=== PATIENT | male | born 1955 | race Caucasian/White ===

== ENCOUNTER 2017-10-09 23:53 | Inpatient (IN) ==
[2017-10-09] MEDS ORDERED: Piperacillin/Tazobactam 3.375 GM in Water for inj. (sterile) 20 ML IVP ONE (23:58)
--- NOTE | 2017-10-09 23:59 | Emergency Department Note ---
Disposition Clinical Impression: Hyponatremia Pneumonia Qualifiers: Pneumonia type: due to unspecified organism Laterality: right Lung location: lower lobe of lung Qualified Code(s): J18.1 - Lobar pneumonia, unspecified organism Urinary tract infection Qualifiers: Urinary tract infection type: site unspecified Hematuria presence: without hematuria Qualified Code(s): N39.0 - Urinary tract infection, site not specified Disposition: Admitted As Inpatient Condition: Fair Time of Disposition: 01:27 General Adult HPI - General Chief complaint: ED Shortness of Breath/Dyspnea Stated complaint: GISELE, possible aspiration Time Seen by Provider: 10/09/17 23:55 Source: patient Mode of arrival: EMS Limitations: altered mental status Nursing Notes Reviewed: Yes Vital Signs Reviewed: Yes - History of Present Illness HPI Narrative: Patient is a 62-year-old male with a past medical history of aspiration which is currently being titrated to thick liquids presenting tonight with respiratory status distress by squad. According to the squad the patient was tachycardic in the 110 and he was satting [facility] the [facility] said of the patient was satting in the 70% prior to their arrival. Stated the patient was initiated on thickened fluids today and he may have aspirated. On arrival the patient's does appear to be in moderate respiratory distress we requested respiratory place the patient on BiPAP. - Related Data Home Medications Medication Instructions Recorded Confirmed Aspirin [Aspirin] 05/14/15 05/14/15 Allergies Allergy/AdvReac Type Severity Reaction Status Date / Time methocarbamol [From Robaxin] Allergy Rash Verified 05/14/15 20:18 Limitations: ROS unobtainable due to patients medical condition Past Medical History - Past Medical History Attestation: Yes The following information was validated with the patient. Physical Exam - General Limitations: altered mental status General appearance: alert, in distress - Head Head exam: atraumatic, normocephalic, normal inspection - Eye Eye exam: Present: normal appearance, PERRL, EOMI - ENT ENT exam: normal exam, mucous membranes dry - Neck Neck exam: Present: normal inspection, full ROM, trachea midline - Chest Chest inspection: Present: normal inspection, symmetric chest wall rise. Absent : tenderness - Expanded Respiratory Exam Location: wheezes: Left, Right, Upper, Lower, rhonchi: Upper - Cardiovascular Cardiovascular exam: Present: normal rhythm, tachycardia, normal heart sounds, + S1, +S2 - Abdominal Exam Abdominal exam: Present: soft, Non-Tender, normal bowel sounds - Extremities Exam Extremities exam: Present: normal inspection, full ROM, normal capillary refill. Absent: tenderness - Neurological Exam Neurological exam: Present: alert - Skin Skin exam: Present: warm, dry, intact, normal color Course Course Narrative: Patient is 62-year-old male presenting by squad [facility] for respiratory distress with history of aspiration. On arrival the patient was immediately placed on BiPAP. Plan is to perform a dyspnea workup of the patient including a chest x-ray, EKG, lactate, and also check basic labs and start the patient empirically on antibiotics for aspiration pneumonia. Due to the patient's altered mental status also do a head CT to rule out any possible bleed for cause of the patient's symptoms. - Reevaluation(s) Reevaluation #1: On reviewing records from the [facility] the patient has a history of dementia secondary to a CVA with multifocal delirium. Patient also has history of hemiplegia and hemiparesis following a nontraumatic subarachnoid hemorrhage affecting his left nondominant side. History of hypoosmolality and hyponatremia. And pneumonitis due to inhalation of food and vomit. Patient's laboratory returned and he has a leukocytosis 19,000 with elevated neutrophils, possible urinary tract infection with leukocyte esterase positive, the patient is also hyponatremic the low 120s. The patient was ordered IV fluids and started on antibiotics which include Zosyn and vancomycin. The patient was also ordered ceftriaxone for his possible UTI. Time: 01:32 Vital Signs Temperature 97.6 F 10/09/17 23:53 Pulse Rate 101 10/09/17 23:53 Respiratory Rate 24 10/09/17 23:53 Blood Pressure 92/54 10/09/17 23:53 O2 Sat by Pulse Oximetry 96 10/09/17 23:53 Temperature 97.6 F 10/09/17 23:53 Pulse Rate 109 10/10/17 03:40 Respiratory Rate 18 10/10/17 03:40 Blood Pressure 109/77 10/10/17 03:40 O2 Sat by Pulse Oximetry 99 10/10/17 03:40 Oxygen Delivery Oxygen Delivery Bipap Medical Decision Making - Medical Records Medical records reviewed: Yes I reviewed the patient's medical records. - Lab Data Lab results reviewed: Yes I reviewed the patient's lab results. Result diagrams: 10/10/17 00:03 10/10/17 00:03 Lab Results 10/10/17 10/10/17 10/10/17 Range/Units 00:03 00:03 00:03 WBC 19.6 H (4.3-11.1) K/mcL RBC 4.43 (4.19-5.50) M/mcL Hgb 13.3 (12.9-16.9) g/dL Hct 41.2 (37.5-50.1) % MCV 93.0 (83.0-100.0) fL MCH 30.0 (28.0-33.3) pg MCHC 32.3 (31.6-35.5) g/dL RDW 13.7 (11.5-14.5) % Plt Count 236 (140-400) K/mcL MPV 8.6 L (9.4-12.4) fL Immature Gran % 0.4 (0-4) % Seg Neutrophils % 91.7 % Lymphocytes % 1.8 % Monocytes % 5.8 % Eosinophils % 0.0 % Basophils % 0.3 % Neutrophils # 18.0 H (1.6-8.9) K/mcL Lymphocytes # 0.4 L (0.6-4.6) K/mcL Monocytes # 1.1 (0.0-1.3) K/mcL Eosinophils # 0.0 (0.0-0.6) K/mcL Basophils # 0.1 (0.0-0.2) K/mcL Sodium 123 L (136-145) mEq/L Potassium 4.3 (3.5-5.1) mEq/L Chloride 87 L (98-107) mEq/L Carbon Dioxide 30 H (23-29) mEq/L BUN 13 (8-23) mg/dL Creatinine 0.47 L (0.70-1.30) mg/dL Est GFR ( Amer) > 60 (> 60) Est GFR (Non-Af Amer) > 60 (> 60) BUN/Creatinine Ratio 28 H (6-26) Glucose 113 H (70-105) mg/dL Calculated Osmolality 257 L (280-300) Lactic Acid (0.5-2.2) mmol/L Calcium 9.6 (8.6-10.3) mg/dL Troponin I < 0.03 (< 0.04) ng/mL B-Natriuretic Peptide (Less than 100) pg/mL Urine Color (Yellow) Urine Clarity (Clear) Urine pH (5.0-8.0) pH Units Ur Specific Parrott (1.010-1.025) Urine Protein (Neg-Trace) mg/dL Urine Glucose (UA) (Normal) mg/dL Urine Ketones (Negative) mg/dL Urine Blood (Negative) Urine Nitrite (Negative) Urine Bilirubin (Negative) Urine Urobilinogen (Normal) mg/dL Ur Leukocyte Esterase (Negative) Urine Microscopic RBC (0-3) per hpf Urine Microscopic WBC (0-3) per hpf Ur Squamous Epith Cells (None-Few) per lpf Urine Bacteria (None-Few) per hpf Hyaline Casts (None-Few) per lpf Ur Culture Indicated? (NO) Specimen Rejected 10/10/17 10/10/17 10/10/17 Range/Units 00:03 00:03 00:40 WBC (4.3-11.1) K/mcL RBC (4.19-5.50) M/mcL Hgb (12.9-16.9) g/dL Hct (37.5-50.1) % MCV (83.0-100.0) fL MCH (28.0-33.3) pg MCHC (31.6-35.5) g/dL RDW (11.5-14.5) % Plt Count (140-400) K/mcL MPV (9.4-12.4) fL Immature Gran % (0-4) % Seg Neutrophils % % Lymphocytes % % Monocytes % % Eosinophils % % Basophils % % Neutrophils # (1.6-8.9) K/mcL Lymphocytes # (0.6-4.6) K/mcL Monocytes # (0.0-1.3) K/mcL Eosinophils # (0.0-0.6) K/mcL Basophils # (0.0-0.2) K/mcL Sodium (136-145) mEq/L Potassium (3.5-5.1) mEq/L Chloride (98-107) mEq/L Carbon Dioxide (23-29) mEq/L BUN (8-23) mg/dL Creatinine (0.70-1.30) mg/dL Est GFR ( Amer) (> 60) Est GFR (Non-Af Amer) (> 60) BUN/Creatinine Ratio (6-26) Glucose (70-105) mg/dL Calculated Osmolality (280-300) Lactic Acid (0.5-2.2) mmol/L Calcium (8.6-10.3) mg/dL Troponin I (< 0.04) ng/mL B-Natriuretic Peptide 20 (Less than 100) pg/mL Urine Color Yellow (Yellow) Urine Clarity Turbid A (Clear) Urine pH 6.0 (5.0-8.0) pH Units Ur Specific Parrott 1.013 (1.010-1.025) Urine Protein 100 H (Neg-Trace) mg/dL Urine Glucose (UA) Normal (Normal) mg/dL Urine Ketones Negative (Negative) mg/dL Urine Blood Moderate H (Negative) Urine Nitrite Negative (Negative) Urine Bilirubin Negative (Negative) Urine Urobilinogen Normal (Normal) mg/dL Ur Leukocyte Esterase Large H (Negative) Urine Microscopic RBC 3-5 H (0-3) per hpf Urine Microscopic WBC TNTC H (0-3) per hpf Ur Squamous Epith Cells Few (None-Few) per lpf Urine Bacteria Moderate H (None-Few) per hpf Hyaline Casts None Seen (None-Few) per lpf Ur Culture Indicated? YES A (NO) Specimen Rejected Hemolyzed 10/10/17 Range/Units 01:06 WBC (4.3-11.1) K/mcL RBC (4.19-5.50) M/mcL Hgb (12.9-16.9) g/dL Hct (37.5-50.1) % MCV (83.0-100.0) fL MCH (28.0-33.3) pg MCHC (31.6-35.5) g/dL RDW (11.5-14.5) % Plt Count (140-400) K/mcL MPV (9.4-12.4) fL Immature Gran % (0-4) % Seg Neutrophils % % Lymphocytes % % Monocytes % % Eosinophils % % Basophils % % Neutrophils # (1.6-8.9) K/mcL Lymphocytes # (0.6-4.6) K/mcL Monocytes # (0.0-1.3) K/mcL Eosinophils # (0.0-0.6) K/mcL Basophils # (0.0-0.2) K/mcL Sodium (136-145) mEq/L Potassium (3.5-5.1) mEq/L Chloride (98-107) mEq/L Carbon Dioxide (23-29) mEq/L BUN (8-23) mg/dL Creatinine (0.70-1.30) mg/dL Est GFR ( Amer) (> 60) Est GFR (Non-Af Amer) (> 60) BUN/Creatinine Ratio (6-26) Glucose (70-105) mg/dL Calculated Osmolality (280-300) Lactic Acid 0.8 (0.5-2.2) mmol/L Calcium (8.6-10.3) mg/dL Troponin I (< 0.04) ng/mL B-Natriuretic Peptide (Less than 100) pg/mL Urine Color (Yellow) Urine Clarity (Clear) Urine pH (5.0-8.0) pH Units Ur Specific Parrott (1.010-1.025) Urine Protein (Neg-Trace) mg/dL Urine Glucose (UA) (Normal) mg/dL Urine Ketones (Negative) mg/dL Urine Blood (Negative) Urine Nitrite (Negative) Urine Bilirubin (Negative) Urine Urobilinogen (Normal) mg/dL Ur Leukocyte Esterase (Negative) Urine Microscopic RBC (0-3) per hpf Urine Microscopic WBC (0-3) per hpf Ur Squamous Epith Cells (None-Few) per lpf Urine Bacteria (None-Few) per hpf Hyaline Casts (None-Few) per lpf Ur Culture Indicated? (NO) Specimen Rejected - Radiology Data Radiology results reviewed: Yes I reviewed the patient's radiology results. Head CT 10/10/17 00:00 IMPRESSION: No acute intracranial abnormality. Mild to moderate degradation secondary streak artifact. D/ / Francisco Mcdonald MD / Francisco Mcdonald MD Interpreting Provider: Francisco Mcdonald MD Chest X-Ray 10/10/17 23:55 IMPRESSION: Right basilar atelectasis or pneumonia. D/ / Martinez Quevedo MD / Martinez Quevedo MD Interpreting Provider: Martinez Quevedo MD - EKG Data EKG #1 EKG attestation: Yes I reviewed and interpreted this EKG. EKG results narrative: EKG done at 00:07 shows sinus tachycardia at a rate of 100. Normal axis. AL is 191, QRS is 86, QT is 265 and QTC is 3 and 22 these are within normal limits. Normal axis. No signs of ST elevation, ST depression or Q waves. Unchanged from EKG on 05/14/2015. Attestation Statement - Attestation Attestation: I, Jason Gunn DO, examined this patient [id number] and my medical decision-making was reviewed with Dr. Demarcus Dash, Resident Physician. I agree with the documented findings, disposition and treatment plan as described except to the extent set forth below. Please see my progress notes for details. 62-year-old male presents to emergency room from the [facility] her tachycardia , hypoxia, increased work of breathing. His conservative patient aspirating his thickened liquids that he started on today. On presentation patient's pulse ox had normalized on nonrebreather mask. Patient was mentating at baseline. He follow commands he answered questions as appropriate as he could. No acute signs of traumatic injury. Altered mentation this point. His pupils are equal and reactive his oropharynx is patent. He had no stridor no trismus. His lungs had coarse crackles on the right side worse than the left. Abdomen is soft nontender nondistended with no guarding no rigidity. Heart is regular. Abdomen is soft. Patient moves all 4 extremities but difficult to do a full neurologic exam secondary to patient's chronic medical issues. Patient will be evaluated for altered mentation versus hypoxia and pulmonary related issues. Pneumatic regimen will be started for possible aspiration pneumonia. Expect patient will need admission. Laboratory workup as well as imaging does confirm what appears to be pneumonia but no acute signs of pulmonary congestion or inflammation. Patient has been stabilized on the BiPAP machine here in the emergency room. Antibiotic regimen provided along with breathing treatments and steroids. Patient was discussed with the hospitalist without any other concern or issue. He will be admitted for definitive management and evaluation. No other concerns or issues noted prior to the admission process. See detailed documentation of the physical exam, medical intervention, medical decision-making and disposition and the resident physician's note. No critical care is applied to the patient and his treatment course 0400 Patient admitted to the hospitalist without any complication. ABG was collected secondary to stabilization of mental status. Patient has mildly acidotic with some mild hyper cardia. Patient will be adjusted on his BiPAP machine. Mental status appears to be a baseline of the status treatment course and evaluation. Admission process established at this time. We will continue monitoring. While the patient is in the emergency room. Urinary tract infection also was noted during the treatment course and was addressed here in the emergency department with IV antibiotics
[2017-10-10] MEDS ORDERED: 0.9 % Sodium Chloride 1,000 ML ONE (00:09)
[2017-10-10 00:21] LABS: Basophils # 0.1 K/mcL (0.0-0.2); Basophils % 0.3 %; Hematocrit 41.2 % (37.5-50.1); Hemoglobin 13.3 g/dL (12.9-16.9); Immature Granulocytes % 0.4 % (0-4); Lymphocytes # 0.4 K/mcL (0.6-4.6); Lymphocytes % 1.8 %; Mean Corpuscular HGB Conc 32.3 g/dL (31.6-35.5); Mean Platelet Volume 8.6 fL (9.4-12.4); Monocytes # 1.1 K/mcL (0.0-1.3); Monocytes % 5.8 %; Platelet Count 236 K/mcL (140-400); Red Blood Count 4.43 M/mcL (4.19-5.50); Red Cell Distribution Width 13.7 % (11.5-14.5); Segmented Neutrophils % 91.7 %
[2017-10-10 00:36] LABS: BUN/Creatinine Ratio 28 (6-26); Blood Urea Nitrogen 13 mg/dL (8-23); Calcium 9.6 mg/dL (8.6-10.3); Carbon Dioxide 30 mEq/L (23-29); Chloride 87 mEq/L (98-107); Glucose 113 mg/dL (70-105); Osmolality,Calculated 257 (280-300); Potassium 4.3 mEq/L (3.5-5.1); Sodium 123 mEq/L (136-145); eGFR For African Americans > 60 (> 60); eGFR For Non-African Americans > 60 (> 60)
[2017-10-10 01:01] LABS: Bilirubin,Urine Negative (Negative); Blood,Urine Moderate (Negative); Clarity,Urine Turbid (Clear); Color,Urine Yellow (Yellow); Ketones,Urine Negative (Negative); Leukocyte Esterase,Urine Large (Negative); Nitrite,Urine Negative (Negative); Protein,Urine 100 mg/dL (Neg-Trace); Specific Gravity,Urine 1.013 (1.010-1.025); Urobilinogen,Urine Normal (Normal)
[2017-10-10 01:06] LABS: Glucose,Urine (UA) Normal (Normal)
[2017-10-10] MEDS ORDERED: 0.9 % Sodium Chloride 1,000 ML IVC ONE ×2 (01:06→02:03)
[2017-10-10 01:13] LABS: WBC,Urine TNTC per hpf (0-3)
[2017-10-10 01:15] LABS: Bacteria,Urine Moderate per hpf (None-Few); Hyaline Casts,Urine None Seen per lpf (None-Few)
[2017-10-10 01:16] LABS: Squamous Epithelial Cell,Urine Few per lpf (None-Few)
[2017-10-10] MEDS ORDERED: Vancomycin 2,000 MG in D5% in Water 500 ML IVPB SCH (02:00)
[2017-10-10] MEDS ORDERED: cefTRIAXone 1,000 MG in Water for inj. (sterile) 10 ML IVP ONE (03:00)
[2017-10-10] MEDS ORDERED: Vancomycin 2,000 MG in D5% in Water 500 ML IVPB ONE (04:00)
[2017-10-10 04:01] LABS: ABG Base Excess 1 mEq/L (-2 to 3); ABG HCO3 31 mEq/L (21-27); ABG Oxygen Saturation 95 % (95-98); ABG PCO2 77 mmHg (35-45); ABG PH 7.21 pH Units (7.32-7.45); ABG PO2 97 mmHg (85-104); ABG TCO2 34 mEq/L (20-26)
[2017-10-10 05:30] LABS: ABG Base Excess 2 mEq/L (-2 to 3); ABG HCO3 29 mEq/L (21-27); ABG Oxygen Saturation 93 % (95-98); ABG PCO2 57 mmHg (35-45); ABG PH 7.32 pH Units (7.32-7.45); ABG PO2 74 mmHg (85-104); ABG TCO2 31 mEq/L (20-26)
[2017-10-10] MEDS ORDERED: Naloxone 0.4 MG/ML INJ IVP PRN (05:30)
--- NOTE | 2017-10-10 05:30 | Internal Med History&Physical ---
<Jay Stearns - Last Filed: 10/10/17 06:48> Date of Encounter: 10/10/17 Time of Encounter: 05:00 Assessment and Plan (1) Aspiration pneumonia Current visit: Yes Status: Acute Continue Vanc/Zosyn, bipap titration, duonebs q4h RAMA Speech/swallow eval. Qualifiers: Aspiration pneumonia type: due to regurgitated food Laterality: right Lung location: unspecified part of lung Qualified Code(s): J69.0 - Pneumonitis due to inhalation of food and vomit (2) Hyponatremia Current visit: Yes Status: Acute Correcting with maintenance fluids .9%NS 125/hr Serial BMPs q6hr; hold fluids if correction faster than 10 meq/L change in a 24hr period. (3) History of CVA (cerebrovascular accident) Current visit: Yes Status: Acute No acute process. Old hemorrhage seen with subtle encephalomalacia is identified in the right ayon radiata and posterior right internal capsule. Physical exam active ROM RUE>>LUE (4) Urinary tract infection Current visit: Yes Status: Acute Poss UTI based on UA. Treatment alongside Aspiration PNA antibiotics. Qualifiers: Urinary tract infection type: site unspecified Hematuria presence: without hematuria Qualified Code(s): N39.0 - Urinary tract infection, site not specified (5) DVT prophylaxis Current visit: Yes Status: Acute SQ Heparin 5000U q12h. No active bleed on CT head. Internal Medicine - H&P: HPI Admitted From: Emergency Dept Plans for Post Hospital Care: Transfer Alf Facility History of present illness: Mr. Carlin is a 62 [facility], who presents via squad for respiratory distress. Pt has history of CVA with left sided hemiparesis, PEG tube, titrated to thick liquids on 10/09/17. EMS reports possible aspiration on the new feeding regimen. Pt reported to be saturating in the 70% prior to arrival to ED, placed on BiPAP in ED, initiate ABG 0343 pH 7.21, PCO2 77, PO2 97 , repeat 0520 7.32, 57, 74, respectively. Patient is currently saturating at 95 % on Bipap, sinus tachy, bp normotensive, in no acute distress. ECG shows sinus rhythm with occasional PVC. Patient is able to follow commands consistently though is non-verbal. Full code at this time. Past Med Surg Social Fam HX - Past Medical History Medical history: dementia, hyperlipidemia, hypertension, venous stasis Psychiatric history: schizophrenia - Social History Smoking Status: Current every day smoker Smokeless Tobacco Status: No Alcohol use: none Drug use: none Internal Medicine - H&P: Meds Acetaminophen [Tylenol Arthritis] 650 mg PO Q8H 10/10/17 [History] Atorvastatin [Lipitor] 40 mg PO HS 10/10/17 [History] Bisacodyl [Dulcolax] 10 mg RC Q48H PRN 10/10/17 [History] Calamine/Zinc Oxide [Calamine Lotion] 1 appl TP BID PRN 10/10/17 [History] Clomipramine HCl 50 mg PO QAM 10/10/17 [History] Cyprohepatdine [Periactin] 4 mg PO HS 10/10/17 [History] Divalproex (24 HR) [Depakote ER (24 HR)] 1,500 mg PO HS 10/10/17 [History] Furosemide [Lasix] 10 mg PO Q48H 10/10/17 [History] Gabapentin [Neurontin] 800 mg PO QID 10/10/17 [History] Ipratropium/Albuterol Neb [Duoneb] 3 ml IH Q4HR 10/10/17 [History] Lisinopril [Zestril] 10 mg PO DAILY 10/10/17 [History] MOM Conc [Milk of Magnesia Conc] 30 ml PO HS PRN 10/10/17 [History] Melatonin [Melatin] 9 mg PO HS 10/10/17 [History] Montelukast [Singulair] 10 mg PO DAILY 10/10/17 [History] Omeprazole [PriLOSEC] 20 mg PO DAILY 10/10/17 [History] Oseltamivir [Tamiflu] 75 mg PO DAILY 10/10/17 [History] Paliperidone Palmitate [Invega Sustenna] 234 mg IM QMONTH 10/10/17 [History] Saline Nasal Stow [Terry Nasal Stow] 1 spray NS BID PRN 10/10/17 [History] Selenium Sulfide [Selrx] 1 appl TP TUFR 10/10/17 [History] Sennosides/Docusate Sodium [Senna Plus] 2 each PO BID 10/10/17 [History] Sodium Chloride 2 gm PO BID 10/10/17 [History] Tramadol HCl [Ultram] 50 mg PO BID PRN 10/10/17 [History] Tramadol HCl [Ultram] 100 mg PO TID 10/10/17 [History] Urea [Keralac] 1 appl TP HS 10/10/17 [History] Zolpidem [Ambien] 5 mg PO HS 10/10/17 [History] risperiDONE [Risperidone] 1 mg PO HS 10/10/17 [History] 3 Allergy/AdvReac Type Severity Reaction Status Date / Time methocarbamol [From Robaxin] Allergy Rash Verified 05/14/15 20:18 All Systems PM: A 10-system review of systems was performed and is negative for pertinent findings except as documented above in the HPI. - Constitutional Vitals: Temp Pulse Resp BP Pulse Ox 97.6 F 109 20 120/83 95 10/09/17 23:53 10/10/17 05:22 10/10/17 05:22 10/10/17 05:22 10/10/17 05:22 Exam: Follows commands, non-verbal. - Head Head exam: Present: atraumatic - Eye Eye exam: Present: EOMI. Absent: conjunctival injection - Respiratory Respiratory exam: Present: rhonchi (right sided >> left), tachypnea. Absent: accessory muscle use - Cardiovascular Cardiovascular exam: Present: +S1, +S2, tachycardia. 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 Absent: cyanosis, diaphoretic Internal Med - H&P Results - Labs CBC & Chem 7: 10/10/17 00:03 10/10/17 00:03 - ABG Interpretation ABG results: 10/10/17 03:43 ABG pH 7.21 L ABG pCO2 77 H* ABG pO2 97 ABG HCO3 31 H ABG Total CO2 34 H ABG O2 Saturation 95 ABG Base Excess 1 - Impressions ITS Impressions Chest X-Ray 10/10/17 23:55 IMPRESSION: Right basilar atelectasis or pneumonia. D/ / Martinez Quevedo MD / Martinez Quevedo MD Interpreting Provider: Martinez Quevedo MD <Kaylee Aguiar - Last Filed: 10/10/17 10:54> Date of Encounter: 10/10/17 Internal Medicine - H&P: HPI History of present illness: Mr. Carlin is a 62 year old male All Systems PM: A 10-system review of systems was performed and is negative for pertinent findings except as documented above in the HPI. - Constitutional Vitals: Temp Pulse Resp BP Pulse Ox 97.6 F 103 17 90/61 96 10/09/17 23:53 10/10/17 09:04 10/10/17 09:04 10/10/17 09:04 10/10/17 09:04 Internal Med - H&P Results - Labs CBC & Chem 7: 10/10/17 00:03 10/10/17 07:11 Labs: BMP 10/10/17 07:11 Sodium 124 L Potassium 4.6 Chloride 91 L Carbon Dioxide 29 BUN 11 Creatinine 0.33 L Glucose 108 H Calcium 8.7 - ABG Interpretation ABG results: 10/10/17 10/10/17 03:43 05:20 ABG pH 7.21 L 7.32 ABG pCO2 77 H* 57 H D ABG pO2 97 74 L ABG HCO3 31 H 29 H ABG Total CO2 34 H 31 H ABG O2 Saturation 95 93 L ABG Base Excess 1 2 - Impressions ITS Impressions Chest X-Ray 10/10/17 23:55 IMPRESSION: Right basilar atelectasis or pneumonia. D/ / Martinez Quevedo MD / Martinez Quevedo MD Interpreting Provider: Martinez Quevedo MD - Attending Attestation I have seen and examined pt independently. I have discussed with Resident physician Dr Stearns regarding the management plan, agree with the documentation. Pt may also has Flu as he is on Tamiflu as home med, end on 10/13. will continue.
[2017-10-10] MEDS ORDERED: 0.9 % Sodium Chloride 1,000 ML IVC SCH (06:00)
[2017-10-10 07:41] LABS: BUN/Creatinine Ratio 33 (6-26); Blood Urea Nitrogen 11 mg/dL (8-23); Calcium 8.7 mg/dL (8.6-10.3); Carbon Dioxide 29 mEq/L (23-29); Chloride 91 mEq/L (98-107); Glucose 108 mg/dL (70-105); Osmolality,Calculated 258 (280-300); Potassium 4.6 mEq/L (3.5-5.1); Sodium 124 mEq/L (136-145); eGFR For African Americans > 60 (> 60); eGFR For Non-African Americans > 60 (> 60)
[2017-10-10] MEDS: Ipratropium/Albuterol Neb 3 ML IH SCH ×6 (08:08→23:51)
[2017-10-10 12:32] LABS: BUN/Creatinine Ratio 13 (6-26); Blood Urea Nitrogen 11 mg/dL (8-23); Calcium 8.4 mg/dL (8.6-10.3); Carbon Dioxide 24 mEq/L (23-29); Chloride 100 mEq/L (98-107); Glucose 231 mg/dL (70-105); Osmolality,Calculated 281 (280-300); Potassium 4.4 mEq/L (3.5-5.1); Sodium 132 mEq/L (136-145); eGFR For African Americans > 60 (> 60); eGFR For Non-African Americans > 60 (> 60)
[2017-10-10] MEDS: Vancomycin 1,500 MG in D5% in Water 250 ML IVPB SCH (12:42)
[2017-10-10] MEDS: Piperacillin/Tazobactam 3.375 GM/200 ML BAG IVPB SCH ×2 (12:43→18:52)
[2017-10-10] MEDS: 0.9 % Sodium Chloride 1,000 ML IVC SCH ×2 (12:44→17:28)
[2017-10-10] MEDS ORDERED: Saline Nasal Spray 44 ML BOTTLE NS PRN (15:33)
[2017-10-10] MEDS ORDERED: Calamine/Zinc oxide Lotion 120 ML BOTTLE TP PRN (15:33)
[2017-10-10] MEDS ORDERED: MOM Conc 10 ML UD.LIQ PO PRN (15:33)
[2017-10-10] MEDS ORDERED: Bisacodyl 10 MG RECTAL SUPPOSITORY RC PRN (15:33)
[2017-10-10] MEDS ORDERED: traMADol 50 MG TABLET PO PRN (15:33)
--- NOTE | 2017-10-10 15:33 | Event Note ---
Date of Encounter: 10/10/17 Time of Encounter: 13:45 Patient evaluated in the ER. On BiPAP at this time. Will continue O2 supplementation with BiPAP. Patient does not have a PEG tube in place. Speech therapy was ordered but unable to be done today due to patient being on BiPAP. Continue duo nebs, Tamiflu for prophylaxis. Continue Zosyn and vancomycin. Will resume his other home medications. Continue aspiration precautions.
[2017-10-10] MEDS ORDERED: Valproic Acid INJ 1,000 MG in 0.9 % Sodium Chloride 100 ML IVPB ONE (16:29)
[2017-10-10] MEDS: Furosemide 20 MG TABLET PO SCH (16:42)
[2017-10-10] MEDS: Acetaminophen 325 MG TABLET PO SCH ×3 (16:42→23:45)
[2017-10-10 16:47] LABS: Adenovirus Not Detected (Not Detect); Bordetella Pertussis Not Detected (Not Detect); Chlamydophila pneumoniae Not Detected (Not Detect); Coronavirus 229E Not Detected (Not Detect); Coronavirus HKU1 Not Detected (Not Detect); Coronavirus NL63 Not Detected (Not Detect); Coronavirus OC43 Not Detected (Not Detect); Human Metapneumovirus Not Detected (Not Detect); Human Rhinovirus/Enterovirus Not Detected (Not Detect); Influenza A Subtype 2009 H1 Not Detected (Not Detect); Influenza A Untypeable Not Detected (Not Detect); Influenza B Not Detected (Not Detect); Mycoplasma pneumoniae Not Detected (Not Detect); Parainfluenza Virus 1 Not Detected (Not Detect); Parainfluenza Virus 2 Not Detected (Not Detect); Parainfluenza Virus 3 Not Detected (Not Detect); Parainfluenza Virus 4 Not Detected (Not Detect); Respiratory Syncytial Virus Not Detected (Not Detect)
[2017-10-10] MEDS: Gabapentin 400 MG CAPSULE PO SCH ×2 (17:18→23:10)
[2017-10-10] MEDS: *HR* Heparin 5,000 UNIT/ML VIAL SQ SCH (17:34)
[2017-10-10 18:38] LABS: BUN/Creatinine Ratio 28 (6-26); Blood Urea Nitrogen 13 mg/dL (8-23); Calcium 8.9 mg/dL (8.6-10.3); Carbon Dioxide 21 mEq/L (23-29); Chloride 94 mEq/L (98-107); Glucose 73 mg/dL (70-105); Osmolality,Calculated 259 (280-300); Potassium 4.8 mEq/L (3.5-5.1); Sodium 125 mEq/L (136-145); eGFR For African Americans > 60 (> 60); eGFR For Non-African Americans > 60 (> 60)
--- NOTE | 2017-10-10 20:08 | Electrocardiograph Report ---
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
[2017-10-10] MEDS ORDERED: Haloperidol Lactate 5 MG/ML VIAL IM ONE (20:21)
[2017-10-10] MEDS ORDERED: Divalproex (24 HR) 500 MG TABLET PO SCH (21:00)
[2017-10-10 22:46] LABS: ABG Base Excess 4 mEq/L (-2 to 3); ABG HCO3 30 mEq/L (21-27); ABG Oxygen Saturation 91 % (95-98); ABG PCO2 51 mmHg (35-45); ABG PH 7.38 pH Units (7.32-7.45); ABG PO2 62 mmHg (85-104); ABG TCO2 32 mEq/L (20-26)
[2017-10-10] MEDS: Cyprohepatdine 4 MG TABLET PO SCH (23:10)
[2017-10-10] MEDS: risperiDONE 1 MG TABLET PO SCH (23:10)
[2017-10-10] MEDS: Melatonin 3 MG TABLET PO SCH (23:10)
[2017-10-10] MEDS: Sennosides/Docusate Sodium TABLET PO SCH (23:10)
[2017-10-11] MEDS: Piperacillin/Tazobactam 3.375 GM/200 ML BAG IVPB SCH ×3 (00:16→16:14)
[2017-10-11] MEDS: Valproic Acid INJ 500 MG in 0.9 % Sodium Chloride 100 ML IVPB SCH ×3 (00:17→16:13)
[2017-10-11 00:24] LABS: Basophils # 0.1 K/mcL (0.0-0.2); Basophils % 0.3 %; Hematocrit 33.5 % (37.5-50.1); Immature Granulocytes % 0.8 % (0-4); Lymphocytes # 0.5 K/mcL (0.6-4.6); Lymphocytes % 2.2 %; Mean Corpuscular HGB Conc 32.2 g/dL (31.6-35.5); Mean Corpuscular Hemoglobin 29.6 pg (28.0-33.3); Mean Corpuscular Volume 91.8 fL (83.0-100.0); Mean Platelet Volume 8.9 fL (9.4-12.4); Monocytes % 4.8 %; Neutrophils # 19.6 K/mcL (1.6-8.9); Platelet Count 172 K/mcL (140-400); Red Blood Count 3.65 M/mcL (4.19-5.50); Segmented Neutrophils % 91.9 %
[2017-10-11 00:27] LABS: Hemoglobin 10.8 g/dL (12.9-16.9)
[2017-10-11 00:41] LABS: BUN/Creatinine Ratio 28 (6-26); Blood Urea Nitrogen 12 mg/dL (8-23); Carbon Dioxide 28 mEq/L (23-29); Chloride 95 mEq/L (98-107); Glucose 72 mg/dL (70-105); Osmolality,Calculated 264 (280-300); Potassium 3.9 mEq/L (3.5-5.1); Sodium 128 mEq/L (136-145); eGFR For African Americans > 60 (> 60); eGFR For Non-African Americans > 60 (> 60)
[2017-10-11] MEDS: Vancomycin 1,500 MG in D5% in Water 250 ML IVPB SCH ×2 (03:26→17:20)
[2017-10-11] MEDS: Ipratropium/Albuterol Neb 3 ML IH SCH ×6 (03:40→23:41)
[2017-10-11] MEDS: *HR* Heparin 5,000 UNIT/ML VIAL SQ SCH ×2 (05:48→18:37)
[2017-10-11] MEDS: Acetaminophen 325 MG TABLET PO SCH ×3 (08:00→16:13)
[2017-10-11] MEDS: Sennosides/Docusate Sodium TABLET PO SCH ×2 (09:42→20:03)
[2017-10-11] MEDS: Gabapentin 400 MG CAPSULE PO SCH ×4 (09:42→20:03)
--- NOTE | 2017-10-11 14:46 | Internal Med Progress Note ---
Date of Encounter: 10/11/17 Time of Encounter: 12:45 - Assessment and plan (1) Acute respiratory failure with hypoxia Current Visit: Yes Status: Acute Assessment and plan: Improving. Due to aspiration pneumonia. Continue O2 supplementation. Wean FiO2 as tolerated. High risk for complications. (2) Pneumonia Current Visit: Yes Status: Acute Assessment and plan: Continue current antibiotics. WBC count remains elevated. Patient is currently on Zosyn and vancomycin. Blood cultures are negative. Will continue to monitor. Repeat chest x-ray name. Qualifiers: Pneumonia type: aspiration pneumonia Aspiration pneumonia type: due to regurgitated food Laterality: right Lung location: lower lobe of lung Qualified Code(s): J69.0 - Pneumonitis due to inhalation of food and vomit (3) Hyponatremia Current Visit: Yes Status: Chronic Assessment and plan: Patient with history of chronic hyponatremia. Continue oral salt tablets. Sodium level is 128 today. We will continue to monitor (4) Urinary tract infection Current Visit: Yes Status: Acute Assessment and plan: Urine culture positive for enterococcus. Patient is on vancomycin at this time. Qualifiers: Urinary tract infection type: acute cystitis Hematuria presence: without hematuria Qualified Code(s): N30.00 - Acute cystitis without hematuria (5) History of CVA (cerebrovascular accident) Current Visit: Yes Status: Acute (6) DVT prophylaxis Current Visit: Yes Status: Acute Assessment and plan: On subcutaneous heparin (7) Dysphagia Current Visit: Yes Status: Acute Assessment and plan: Speech therapy evaluating patient. Currently on pureed diet. Plan for modified barium swallow study tomorrow. Qualifiers: Dysphagia type: oropharyngeal phase Qualified Code(s): R13.12 - Dysphagia, oropharyngeal phase (8) Dysphagia as late effect of cerebrovascular accident (CVA) Current Visit: Yes Status: Acute - Subjective Interval history: Patient is currently lying in bed. On nasal cannula at this time. Patient had developed agitation last night while using BiPAP. He received Haldol. Also 1- 1 sitter present at bedside. This morning he has been doing much better. Currently he is on 8 L high flow nasal cannula - Constitutional Vitals: Temp Pulse Resp BP Pulse Ox 97.6 F 109 20 131/74 99 10/11/17 03:31 10/11/17 11:54 10/11/17 11:54 10/11/17 07:46 10/11/17 11:54 General appearance: Present: A&O X 1, obese. Absent: answers questions appropriately Exam: Moderate distress - Respiratory Respiratory exam: Present: prolonged expiratory phase. Absent: accessory muscle use, rales, rhonchi, wheezes - Cardiovascular Cardiovascular exam: Present: RRR, +S1, +S2. Absent: diastolic murmur, gallop, rubs, systolic murmur - GI/Abdominal GI/Abdominal exam: Present: normal bowel sounds, soft, no peritoneal signs. Absent: distended, tenderness - Extremities Exam Extremities exam: Present: warm, radial pulses palpable and symmetrical. Absent : calf tenderness, cyanotic, pedal edema - Neurological Exam Neurological exam: Present: alert, oriented X3, no focal deficits. Absent: facial droop, speech deficit Internal Medicine: Result - Labs CBC & Chem 7: 10/11/17 00:14 10/11/17 00:14 Labs: Short CBC 10/11/17 Range/Units 00:14 WBC 21.4 H (4.3-11.1) K/mcL Hgb 10.8 L D (12.9-16.9) g/dL Hct 33.5 L (37.5-50.1) % Plt Count 172 (140-400) K/mcL Neutrophils # 19.6 H (1.6-8.9) K/mcL BMP 10/10/17 10/11/17 17:17 00:14 Sodium 125 L 128 L Potassium 4.8 3.9 Chloride 94 L 95 L Carbon Dioxide 21 L 28 BUN 13 12 Creatinine 0.47 L 0.43 L Glucose 73 72 Calcium 8.9 9.0 - ABG Interpretation ABG results: ABG ABG pH 7.38 pH Units (7.32-7.45) 10/10/17 22:43 ABG pCO2 51 mmHg (35-45) H 10/10/17 22:43 ABG pO2 62 mmHg (85-104) L 10/10/17 22:43 ABG O2 Saturation 91 % (95-98) L 10/10/17 22:43 - VTE Documentation of Mechanical Device: Intermittent pneumatic compression device Consult Discharge Plan - Plan [facility] [Primary Care Provider] -
[2017-10-11] MEDS: Cyprohepatdine 4 MG TABLET PO SCH (20:03)
[2017-10-11] MEDS: Melatonin 3 MG TABLET PO SCH (20:04)
[2017-10-11] MEDS: risperiDONE 1 MG TABLET PO SCH (20:04)
[2017-10-12] MEDS: Piperacillin/Tazobactam 3.375 GM/200 ML BAG IVPB SCH ×2 (00:27→10:21)
[2017-10-12] MEDS: Valproic Acid INJ 500 MG in 0.9 % Sodium Chloride 100 ML IVPB SCH ×2 (00:35→10:18)
[2017-10-12] MEDS: Acetaminophen 325 MG TABLET PO SCH ×2 (03:01→10:27)
[2017-10-12] MEDS: Ipratropium/Albuterol Neb 3 ML IH SCH ×5 (04:02→20:02)
[2017-10-12 04:16] LABS: Basophils % 0.1 %; Hematocrit 33.7 % (37.5-50.1); Hemoglobin 10.5 g/dL (12.9-16.9); Immature Granulocytes % 0.5 % (0-4); Lymphocytes # 0.6 K/mcL (0.6-4.6); Lymphocytes % 4.4 %; Mean Corpuscular HGB Conc 31.2 g/dL (31.6-35.5); Mean Corpuscular Hemoglobin 29.4 pg (28.0-33.3); Mean Corpuscular Volume 94.4 fL (83.0-100.0); Mean Platelet Volume 8.9 fL (9.4-12.4); Monocytes # 0.9 K/mcL (0.0-1.3); Monocytes % 6.4 %; Neutrophils # 12.1 K/mcL (1.6-8.9); Platelet Count 179 K/mcL (140-400); Red Blood Count 3.57 M/mcL (4.19-5.50); Red Cell Distribution Width 14.1 % (11.5-14.5); Segmented Neutrophils % 88.6 %
[2017-10-12 04:31] LABS: BUN/Creatinine Ratio 30 (6-26); Blood Urea Nitrogen 10 mg/dL (8-23); Calcium 9.5 mg/dL (8.6-10.3); Carbon Dioxide 34 mEq/L (23-29); Chloride 96 mEq/L (98-107); Glucose 76 mg/dL (70-105); Osmolality,Calculated 276 (280-300); Potassium 3.4 mEq/L (3.5-5.1); Sodium 134 mEq/L (136-145); eGFR For African Americans > 60 (> 60); eGFR For Non-African Americans > 60 (> 60)
[2017-10-12] MEDS: *HR* Heparin 5,000 UNIT/ML VIAL SQ SCH ×2 (05:27→18:30)
[2017-10-12] MEDS: Vancomycin 1,500 MG in D5% in Water 250 ML IVPB SCH (05:28)
[2017-10-12] MEDS ORDERED: Aminoglycoside Consult 1 EACH MC ONE (07:44)
[2017-10-12] MEDS: Gabapentin 400 MG CAPSULE PO SCH ×4 (10:09→23:27)
[2017-10-12] MEDS ORDERED: Acetaminophen 325 MG TABLET PO PRN (11:00)
--- NOTE | 2017-10-12 16:22 | Internal Med Progress Note ---
Date of Encounter: 10/12/17 Time of Encounter: 12:00 - Assessment and plan (1) Acute respiratory failure with hypoxia Current Visit: Yes Status: Acute Assessment and plan: Improving. Currently patient is on 6 L nasal cannula. Will continue O2 supplementation. Use BiPAP as needed. Treat underlying pneumonia. (2) Pneumonia Current Visit: Yes Status: Acute Assessment and plan: Improving. WBC count is trending down. We will transition to oral antibiotics. Moderate risk for complications. Qualifiers: Pneumonia type: aspiration pneumonia Aspiration pneumonia type: due to regurgitated food Laterality: right Lung location: lower lobe of lung Qualified Code(s): J69.0 - Pneumonitis due to inhalation of food and vomit (3) Hyponatremia Current Visit: Yes Status: Chronic Assessment and plan: Improved. Sodium is 134 today. Continue oral supplementation with salt tablets. (4) Urinary tract infection Current Visit: Yes Status: Acute Assessment and plan: Urine culture positive for enterococcus. Sensitive to methicillin. Will treat with Augmentin. Qualifiers: Urinary tract infection type: acute cystitis Hematuria presence: without hematuria Qualified Code(s): N30.00 - Acute cystitis without hematuria (5) History of CVA (cerebrovascular accident) Current Visit: Yes Status: Acute Assessment and plan: With residual left-sided weakness and dysphagia. (6) DVT prophylaxis Current Visit: Yes Status: Acute (7) Dysphagia Current Visit: Yes Status: Acute Assessment and plan: Patient had significant aspiration with liquids during modified barium swallow study. Speech therapy recommends Pureed diet with honey thickened liquids using spoon only. Patient is advised to not use cups. Will be transferred back to [place] for inpatient rehabilitation when medically stable. Qualifiers: Dysphagia type: oropharyngeal phase Qualified Code(s): R13.12 - Dysphagia, oropharyngeal phase (8) Dysphagia as late effect of cerebrovascular accident (CVA) Current Visit: Yes Status: Acute - Subjective Interval history: Patient is awake and alert. Sitting up in bed. Currently on nasal cannula. Denies any chest pain. Has not been agitated today. Did require BiPAP overnight. - Constitutional Vitals: Temp Pulse Resp BP Pulse Ox 98.3 F 109 18 142/89 97 10/12/17 12:15 10/12/17 15:38 10/12/17 15:38 10/12/17 13:10 10/12/17 15:38 General appearance: Present: cooperative, A&O X 1, obese, answers questions appropriately (Answers some questions appropriately) - Respiratory Respiratory exam: Absent: accessory muscle use, rales, rhonchi, wheezes Additional comments: Coarse breath sounds bilaterally - Cardiovascular Cardiovascular exam: Present: RRR, +S1, +S2. Absent: diastolic murmur, gallop, rubs, systolic murmur - GI/Abdominal GI/Abdominal exam: Present: normal bowel sounds, soft, no peritoneal signs. Absent: distended, tenderness - Extremities Exam Extremities exam: Present: warm, radial pulses palpable and symmetrical. Absent : calf tenderness, cyanotic, pedal edema - Neurological Exam Neurological exam: Present: alert, no focal deficits. Absent: facial droop, speech deficit Internal Medicine: Result - Labs CBC & Chem 7: 10/12/17 03:59 10/12/17 03:59 Labs: Short CBC 10/12/17 Range/Units 03:59 WBC 13.7 H (4.3-11.1) K/mcL Hgb 10.5 L (12.9-16.9) g/dL Hct 33.7 L (37.5-50.1) % Plt Count 179 (140-400) K/mcL Neutrophils # 12.1 H (1.6-8.9) K/mcL BMP 10/12/17 03:59 Sodium 134 L Potassium 3.4 L Chloride 96 L Carbon Dioxide 34 H BUN 10 Creatinine 0.33 L Glucose 76 Calcium 9.5 - ABG Interpretation ABG results: ABG ABG pH 7.38 pH Units (7.32-7.45) 10/10/17 22:43 ABG pCO2 51 mmHg (35-45) H 10/10/17 22:43 ABG pO2 62 mmHg (85-104) L 10/10/17 22:43 ABG O2 Saturation 91 % (95-98) L 10/10/17 22:43 - Impressions Impressions Videofluoroscopic Swallow 10/12/17 08:15 IMPRESSION: Gross aspiration with use of nectar consistency. Cough reflex was elicited. Mild aspiration with use of large bolus of honey consistency. Small boluses of honey consistency demonstrate no significant aspiration. Please see separate speech pathology report for full discussion of findings and recommendations. D/ / 10/12/2017 09:18:01 Armando Friedman MD / [place] Interpreting Provider: Armando Friedman MD - VTE Documentation of Mechanical Device: Intermittent pneumatic compression device Consult Discharge Plan - Plan [facility]errals: [facility] [Primary Care Provider] -
[2017-10-12] MEDS ORDERED: Vancomycin 1,750 MG in D5% in Water 500 ML IVPB SCH (17:00)
[2017-10-12] MEDS: Divalproex Sodium 125 MG CAPSULE PO SCH ×2 (18:22→23:27)
[2017-10-12] MEDS: Furosemide 20 MG TABLET PO SCH (18:24)
[2017-10-12] MEDS: Melatonin 3 MG TABLET PO SCH (23:27)
[2017-10-12] MEDS: Cyprohepatdine 4 MG TABLET PO SCH (23:27)
[2017-10-12] MEDS: risperiDONE 1 MG TABLET PO SCH (23:28)
[2017-10-13] MEDS: Ipratropium/Albuterol Neb 3 ML IH SCH ×7 (00:11→23:41)
[2017-10-13] MEDS: *HR* Heparin 5,000 UNIT/ML VIAL SQ SCH ×2 (05:28→18:30)
[2017-10-13] MEDS: Divalproex Sodium 125 MG CAPSULE PO SCH ×3 (12:41→22:14)
[2017-10-13] MEDS: Gabapentin 400 MG CAPSULE PO SCH ×4 (12:41→22:12)
--- NOTE | 2017-10-13 14:41 | Palliative - Consult Note ---
<SheyjanelleAmbrose malave - Last Filed: 10/13/17 14:58> Date of Encounter: 10/13/17 Time of Encounter: 14:24 - Assessment and Plan (1) Goals of care, counseling/discussion Current Visit: Yes Status: Acute Assessment and plan: Patient transferred from inpatient at [place] to [place] for aspiration event. Patient is alert to person place and situation. Code Status: FULL CODE, confirmed with patient 10/13/17 14:30pm POA: Cousin Sia Menon, ph [phone]. emergency contact Marlena Abraham, ph [phone] Dysphagia: Patient has expressed that he does "not" want a peg tube or ng feeding tube. Patient prefers to feed by mouth and understands that he must eat slowly and in little amounts at a time. Speech has recommended small size thickened liquids by spoon and pureed textures. Not to self feed or drink from cup. Participate in swallow therapy. May consider mouth swab for keeping mouth moist. No nausea, no vomiting, no pain, no problems with bowels. Informed Hospitalist of discussions. (2) Aspiration pneumonia Current Visit: Yes Status: Acute Assessment and plan: Continue per Hospitalist plan with appropriate antibiotics. Qualifiers: Aspiration pneumonia type: due to regurgitated food Laterality: right Lung location: unspecified part of lung Qualified Code(s): J69.0 - Pneumonitis due to inhalation of food and vomit (3) History of CVA (cerebrovascular accident) Current Visit: Yes Status: Acute Assessment and plan: History of cva with left sided weakness and dysphagia. (4) Dysphagia as late effect of cerebrovascular accident (CVA) Current Visit: Yes Status: Acute (5) Dysphagia Current Visit: Yes Status: Acute Qualifiers: Dysphagia type: oropharyngeal phase Qualified Code(s): R13.12 - Dysphagia, oropharyngeal phase Palliative-CN HPI - Data of Consult Consult date: 10/13/17 Requesting Physician: Thi Ochoa MD Primary Care Provider: PCP [place] - Consult Narrative Reason for consult: Goals of care, code status History of present illness: Mr. Carlin is a 62 year old male with history of CVA with left sided hemiparesis and PEG tube, dementia, hld, htn, venous stasis, and schizophrenia who was recently downgraded to honey thick liquids on 10/09/17 and underwent an aspiration event , titrated to thick liquids on 10/09/17 before aspirating and was transferred from [place] via EMS to [place]. Patient was admitted with diagnosis of hyponatremia and aspiration pneumonia and started on appropriate antibiotics. Video swallow 10/10/17 revealed gross aspiration with nectars with a cough reflex. Mild aspiration with use of large bolus honey consistency and no aspiration with small boluses of honey. Speech eval 10/11/17 revealed pharyngeal dysphagia with immediate cough and regurgitation of thin liqui and honey thick liquid. Tolerated pureed texture in 3/3 trials and advances soft in 1/1 trial without aspiration. Recommendations for pureed textures and no liquids. Speech eval 10/12/17 revealed moderate-severe oropharyngeal dysphagia. Deficits led to delayed swallow and pooling into velleculae and pryiforms causing full aspiration of nectar thickened liquids and trace aspiration of honey thick liquids given large bolus. No aspiration with small size thickened liquids by spoon. Recommended honey thick liquids by spoon only not to self feed or drink from a cup. pureed textures recommended. Palliative Medicine was consulted to determine goals of care and code status. As noted in nurses note, dorota Stovall Workman the patient's cousin. ____ Patient was alert and oriented to person, place, and situation, not to time. Patient was able to voice slowly that he had a stroke and has left sided weakness and has had some troubles swallowing. After discussing with the patient, the patient has clearly and consistently expressed that he does not want an ng feeding tube and does not want a peg tube, he does want to eat only by mouth and understands that he needs to eat small amounts slowly and that if he takes large amounts he make aspirate and result in him having breathing difficulties again. We have also discussed code status in detail with the patient and he has expressed that he would like to be provided with compressions and intubation if needed if his heart were to stop or he were to stop breathing. He understands the risks and benefits of this resuscitation. Current reports his mouth is very dry and he has some trouble swallowing because his throat is dry. Patient also reports mild shortness of breath, but no chest pain or pressure. Denies abdominal pain, changes in bowels or bladder , or new weakness or loss of sensation. CC: Thi Ochoa MD Past Med Surg Social Fam HX - Past Medical History Medical history: CVA (with left sided weakness, history of peg tube removed), dementia, hyperlipidemia, hypertension, venous stasis Psychiatric history: schizophrenia - Social History Smoking Status: Current every day smoker Smokeless Tobacco Status: No Alcohol use: none Drug use: none - Family History Mother History Unknown: Yes Medications and Allergies Acetaminophen [Tylenol Arthritis] 650 mg PO Q8H 10/10/17 [History] Atorvastatin [Lipitor] 40 mg PO HS 10/10/17 [History] Bisacodyl [Dulcolax] 10 mg RC Q48H PRN 10/10/17 [History] Calamine/Zinc Oxide [Calamine Lotion] 1 appl TP BID PRN 10/10/17 [History] Clomipramine HCl 50 mg PO QAM 10/10/17 [History] Cyprohepatdine [Periactin] 4 mg PO HS 10/10/17 [History] Divalproex (24 HR) [Depakote ER (24 HR)] 1,500 mg PO HS 10/10/17 [History] Furosemide [Lasix] 10 mg PO Q48H 10/10/17 [History] Gabapentin [Neurontin] 800 mg PO QID 10/10/17 [History] Ipratropium/Albuterol Neb [Duoneb] 3 ml IH Q4HR 10/10/17 [History] Lisinopril [Zestril] 10 mg PO DAILY 10/10/17 [History] MOM Conc [Milk of Magnesia Conc] 30 ml PO HS PRN 10/10/17 [History] Melatonin [Melatin] 9 mg PO HS 10/10/17 [History] Montelukast [Singulair] 10 mg PO DAILY 10/10/17 [History] Omeprazole [PriLOSEC] 20 mg PO DAILY 10/10/17 [History] Oseltamivir [Tamiflu] 75 mg PO DAILY 10/10/17 [History] Paliperidone Palmitate [Invega Sustenna] 234 mg IM QMONTH 10/10/17 [History] Saline Nasal [place] [[place] Nasal [place]] 1 spray NS BID PRN 10/10/17 [History] Selenium Sulfide [Selrx] 1 appl TP TUFR 10/10/17 [History] Sennosides/Docusate Sodium [Senna Plus] 2 each PO BID 10/10/17 [History] Sodium Chloride 2 gm PO BID 10/10/17 [History] Tramadol HCl [Ultram] 50 mg PO BID PRN 10/10/17 [History] Tramadol HCl [Ultram] 100 mg PO TID 10/10/17 [History] Urea [Keralac] 1 appl TP HS 10/10/17 [History] Zolpidem [Ambien] 5 mg PO HS 10/10/17 [History] risperiDONE [Risperidone] 1 mg PO HS 10/10/17 [History] 3 Allergy/AdvReac Type Severity Reaction Status Date / Time methocarbamol [From Robaxin] Allergy Rash Verified 05/14/15 20:18 - Constitutional Constitutional ROS PAL: as per HPI - EENT Eyes: as per HPI Ears: as per HPI - Cardiovascular Cardiovascular ROS: as per HPI - Respiratory Respiratory: dyspnea - Gastrointestinal Gastrointestinal: as per HPI - Genitourinary Genitourinary ROS male: as per HPI - Musculoskeletal Musculoskeletal ROS IM: as per HPI - Integumentary ROS Integumentary: as per HPI - Neurological Neurological ROS: as per HPI Palliative Care-Exam - Constitutional Vitals: Temp Pulse Resp BP Pulse Ox 97.7 F 105 18 127/89 99 10/13/17 06:34 10/13/17 11:00 10/13/17 11:54 10/13/17 11:00 10/13/17 11:54 General appearance: Present: cooperative, no acute distress, obese - Head Head Exam: Present: atraumatic, normal inspection, normocephalic - Eye Eye exam: Present: EOMI, PERRL Additional comments: slightly proptotic bilaterally - ENT ENT exam: Present: mucous membranes dry - Neck Neck exam: Present: full ROM, normal inspection - Respiratory Respiratory exam: Present: rhonchi (bilaterally). Absent: accessory muscle use , chest wall tenderness, rales, respiratory distress, wheezes - Cardiovascular Cardiovascular exam: Present: RRR, +S1, +S2 - GI/Abdominal Exam GI/Abdominal exam: Present: normal bowel sounds, soft. Absent: tenderness additional comments: NO peg tube, small midline scar over epigastric region - Extremities Exam Extremities exam: Present: normal inspection. Absent: pedal edema, tenderness - Neurological Exam Neurological exam: Present: alert Additional comments: oriented to person place and situation, not time. some speech slurring and difficulty understanding. Left sided weakness of upper and lower extremities. - Psychiatric Psychiatric exam: Present: normal affect, normal mood - Skin Skin exam: Present: dry, intact, normal color, warm Additional comments: skin colored to pink papular rash over temples bilaterally Internal Medicine - CN: Reslt - Labs CBC & Chem 7: 10/12/17 03:59 10/12/17 03:59 - ABG Interpretation ABG results: ABG ABG pH 7.38 pH Units (7.32-7.45) 10/10/17 22:43 ABG pCO2 51 mmHg (35-45) H 10/10/17 22:43 ABG pO2 62 mmHg (85-104) L 10/10/17 22:43 ABG O2 Saturation 91 % (95-98) L 10/10/17 22:43 Consult Discharge Plan - Plan [facility]errals: [facility] [Primary Care Provider] - Palliative Quality Palliative Quality: Screen for Code Status: Yes, Screen for Goals of Care: Yes, Screen for Pain: Yes, If Pain Regimen Started, Initiate Bowel Regimen: NA, Screen for Nausea/Vomitting: Yes Code Status: 10/10/17 05:30 Resuscitation Status: Active [RES] Routine Comment: Resuscitation Status: Full Code <Ric Kiser L - Last Filed: 10/13/17 15:15> Date of Encounter: 10/13/17 Palliative-CN HPI - Data of Consult Requesting Physician: Thi Ochoa MD Primary Care Provider: PCP [place] - Consult Narrative History of present illness: Mr. Carlin is a 62 year old male CC: Thi Ochoa MD Palliative Care-Exam - Constitutional Vitals: Temp Pulse Resp BP Pulse Ox 97.7 F 105 18 127/89 99 10/13/17 06:34 10/13/17 11:00 10/13/17 11:54 10/13/17 11:00 10/13/17 11:54 Internal Medicine - CN: Reslt - Labs CBC & Chem 7: 10/12/17 03:59 10/12/17 03:59 - ABG Interpretation ABG results: ABG ABG pH 7.38 pH Units (7.32-7.45) 10/10/17 22:43 ABG pCO2 51 mmHg (35-45) H 10/10/17 22:43 ABG pO2 62 mmHg (85-104) L 10/10/17 22:43 ABG O2 Saturation 91 % (95-98) L 10/10/17 22:43 - Attending Attestation I examined this patient and my medical decision-making was reviewed with the Resident Physician. I agree with the documented findings, disposition and treatment plan as described except to the extent set forth below. Palliative Quality Code Status: 10/10/17 05:30 Resuscitation Status: Active [RES] Routine Comment: Resuscitation Status: Full Code
--- NOTE | 2017-10-13 15:19 | Internal Med Progress Note ---
Date of Encounter: 10/13/17 Time of Encounter: 09:50 - Assessment and plan (1) Acute respiratory failure with hypoxia Current Visit: Yes Status: Acute Assessment and plan: Continue O2 supplementation. Wean FiO2 as tolerated. Continue to treat underlying pneumonia. (2) Pneumonia Current Visit: Yes Status: Acute Assessment and plan: Aspiration pneumonia. Treating with Augmentin. Qualifiers: Qualified Code(s): J69.0 - Pneumonitis due to inhalation of food and vomit (3) Hyponatremia Current Visit: Yes Status: Chronic Assessment and plan: Improved. Continue oral salt tablets (4) Urinary tract infection Current Visit: Yes Status: Acute Assessment and plan: Complete treatment course for enterococcus with Augmentin Qualifiers: Qualified Code(s): N30.00 - Acute cystitis without hematuria (5) History of CVA (cerebrovascular accident) Current Visit: Yes Status: Acute Assessment and plan: With left-sided residual palsy and dysphagia. (6) Dysphagia Current Visit: Yes Status: Acute Assessment and plan: Patient continues to aspirate even with nectar thick liquids with the use of smoking. Speech therapy recommends alternative modes of nutrition. Consulted. Palliative care to guide with decision-making and to assess goals of care. I discussed his care with his primary provider at the [facility]. Patient had in the past not wanted any sort of feeding tube. He wanted to continue to eat by mouth. We will clarify this with the patient. If patient not willing to have any feeding tube, we will place him on least restrictive diet for him with appropriate behavior. Patient will continue to be at high risk for aspiration and may have multiple recurrent episodes of aspiration pneumonia as a result. Qualifiers: Qualified Code(s): R13.12 - Dysphagia, oropharyngeal phase (7) DVT prophylaxis Current Visit: Yes Status: Acute (8) Dysphagia as late effect of cerebrovascular accident (CVA) Current Visit: Yes Status: Acute - Subjective Interval history: Patient is awake and alert. Seems to be doing better today. Complains of some cough and abdominal discomfort when his coughing. He has not had any fever or chills overnight. Has been on high flow nasal cannula. Currently on 6 L. Saturating at 99%. - Constitutional Vitals: Temp Pulse Resp BP Pulse Ox 97.7 F 105 18 127/89 99 10/13/17 06:34 10/13/17 11:00 10/13/17 11:54 10/13/17 11:00 10/13/17 11:54 General appearance: Present: cooperative, A&O X 1, obese, answers questions appropriately (Answers some questions appropriately) - Respiratory Respiratory exam: Present: rhonchi. Absent: accessory muscle use, rales, wheezes Additional comments: Coarse breath sounds bilaterally - Cardiovascular Cardiovascular exam: Present: RRR, +S1, +S2. Absent: diastolic murmur, gallop, rubs, systolic murmur - GI/Abdominal GI/Abdominal exam: Present: normal bowel sounds, soft, no peritoneal signs. Absent: distended, tenderness - Extremities Exam Extremities exam: Present: warm, radial pulses palpable and symmetrical. Absent : calf tenderness, cyanotic, pedal edema - Neurological Exam Neurological exam: Present: alert, no focal deficits. Absent: facial droop, speech deficit Internal Medicine: Result - Labs CBC & Chem 7: 10/12/17 03:59 10/12/17 03:59 - ABG Interpretation ABG results: ABG ABG pH 7.38 pH Units (7.32-7.45) 10/10/17 22:43 ABG pCO2 51 mmHg (35-45) H 10/10/17 22:43 ABG pO2 62 mmHg (85-104) L 10/10/17 22:43 ABG O2 Saturation 91 % (95-98) L 10/10/17 22:43 - VTE Documentation of Mechanical Device: Intermittent pneumatic compression device Consult Discharge Plan - Plan [facility]errals: [facility] [Primary Care Provider] -
[2017-10-13] MEDS: risperiDONE 1 MG TABLET PO SCH (22:13)
[2017-10-13] MEDS: Melatonin 3 MG TABLET PO SCH (22:13)
[2017-10-13] MEDS: Cyprohepatdine 4 MG TABLET PO SCH (22:13)
[2017-10-14] MEDS: Ipratropium/Albuterol Neb 3 ML IH SCH ×3 (03:19→12:13)
[2017-10-14] MEDS: *HR* Heparin 5,000 UNIT/ML VIAL SQ SCH (06:27)
[2017-10-14 09:34] LABS: Basophils % 0.5 %; Eosinophils % 0.1 %; Hematocrit 35.6 % (37.5-50.1); Hemoglobin 10.8 g/dL (12.9-16.9); Immature Granulocytes % 0.8 % (0-4); Lymphocytes # 0.8 K/mcL (0.6-4.6); Lymphocytes % 9.4 %; Mean Corpuscular HGB Conc 30.3 g/dL (31.6-35.5); Mean Corpuscular Volume 95.7 fL (83.0-100.0); Mean Platelet Volume 9.3 fL (9.4-12.4); Monocytes % 12.1 %; Neutrophils # 6.5 K/mcL (1.6-8.9); Platelet Count 198 K/mcL (140-400); Red Blood Count 3.72 M/mcL (4.19-5.50); Red Cell Distribution Width 14.4 % (11.5-14.5); Segmented Neutrophils % 77.1 %
--- NOTE | 2017-10-14 11:13 | Event Note ---
Date of Encounter: 10/14/17 Time of Encounter: 11:10 Patient awake and alert - ate about 50% of breakfast. Still with audible rhonchi. Denies pain or discomfort. Dr. Ochoa at bedside as well. Possible transfer back to [place] today if they are agreeable to take him.
[2017-10-14] MEDS: Divalproex Sodium 125 MG CAPSULE PO SCH (11:17)
[2017-10-14] MEDS: Gabapentin 400 MG CAPSULE PO SCH (11:19)
[2017-10-14 11:20] LABS: BUN/Creatinine Ratio 14 (6-26); Blood Urea Nitrogen 18 mg/dL (8-23); Calcium 9.4 mg/dL (8.6-10.3); Carbon Dioxide 35 mEq/L (23-29); Chloride 104 mEq/L (98-107); Glucose 120 mg/dL (70-105); Osmolality,Calculated 297 (280-300); Potassium 3.6 mEq/L (3.5-5.1); Sodium 142 mEq/L (136-145); eGFR For African Americans > 60 (> 60); eGFR For Non-African Americans 55 (> 60)
[2017-10-14 11:44] VITALS: BP 156/96
--- NOTE | 2017-10-14 13:05 | Discharge Summary ---
Date of Encounter: 10/14/17 Time of Encounter: 13:02 - Discharge Diagnosis (1) Acute respiratory failure with hypoxia Priority: Primary Status: Acute (2) Pneumonia Priority: Secondary Status: Acute Qualifiers: Pneumonia type: aspiration pneumonia Aspiration pneumonia type: due to regurgitated food Laterality: right Lung location: lower lobe of lung Qualified Code(s): J69.0 - Pneumonitis due to inhalation of food and vomit (3) Hyponatremia Priority: Secondary Status: Chronic (4) Urinary tract infection Priority: Secondary Status: Acute Qualifiers: Urinary tract infection type: acute cystitis Hematuria presence: without hematuria Qualified Code(s): N30.00 - Acute cystitis without hematuria (5) History of CVA (cerebrovascular accident) Priority: Secondary Status: Acute (6) Dysphagia Priority: Secondary Status: Acute Qualifiers: Dysphagia type: oropharyngeal phase Qualified Code(s): R13.12 - Dysphagia, oropharyngeal phase (7) DVT prophylaxis Priority: Secondary Status: Acute (8) Dysphagia as late effect of cerebrovascular accident (CVA) Priority: Secondary Status: Acute - Discharge Medications Home Medications: Acetaminophen [Tylenol Arthritis] 650 mg PO Q8H 10/10/17 [History] Atorvastatin [Lipitor] 40 mg PO HS 10/10/17 [History] Bisacodyl [Dulcolax] 10 mg RC Q48H PRN 10/10/17 [History] Calamine/Zinc Oxide [Calamine Lotion] 1 appl TP BID PRN 10/10/17 [History] Clomipramine HCl 50 mg PO QAM 10/10/17 [History] Cyprohepatdine [Periactin] 4 mg PO HS 10/10/17 [History] Divalproex (24 HR) [Depakote ER (24 HR)] 1,500 mg PO HS 10/10/17 [History] Furosemide [Lasix] 10 mg PO Q48H 10/10/17 [History] Gabapentin [Neurontin] 800 mg PO QID 10/10/17 [History] Ipratropium/Albuterol Neb [Duoneb] 3 ml IH Q4HR 10/10/17 [History] Lisinopril [Zestril] 10 mg PO DAILY 10/10/17 [History] MOM Conc [MILK OF MAGNESIA conc] 30 ml PO HS PRN 10/10/17 [History] Melatonin [Melatin] 9 mg PO HS 10/10/17 [History] Montelukast [Singulair] 10 mg PO DAILY 10/10/17 [History] Omeprazole [PriLOSEC] 20 mg PO DAILY 10/10/17 [History] Paliperidone Palmitate [Invega Sustenna] 234 mg IM QMONTH 10/10/17 [History] Saline Nasal [place] [[place] Nasal [place]] 1 spray NS BID PRN 10/10/17 [History] Selenium Sulfide [Selrx] 1 appl TP TUFR 10/10/17 [History] Sennosides/Docusate Sodium [Senna Plus] 2 each PO BID 10/10/17 [History] Sodium Chloride 2 gm PO BID 10/10/17 [History] Tramadol HCl [Ultram] 50 mg PO BID PRN 10/10/17 [History] Tramadol HCl [Ultram] 100 mg PO TID 10/10/17 [History] Urea [Keralac] 1 appl TP HS 10/10/17 [History] Zolpidem [Ambien] 5 mg PO HS 10/10/17 [History] risperiDONE [Risperidone] 1 mg PO HS 10/10/17 [History] Amoxicillin/Clavulanate [Augmentin] 875 mg PO BIDWM 5 Days tablet 10/14/17 [Rx] Allergies/Adverse Reactions: 3 Allergy/AdvReac Type Severity Reaction Status Date / Time methocarbamol [From Robaxin] Allergy Rash Verified 05/14/15 20:18 Date of admission: 10/10/17 01:30 Primary care physician: PCP [facility] Consults: 10/10/17 06:39 Consult to Speech Therapy [CONS] Routine Comment: Evaluate, develop and implement POC Reason for Consult: Aspiration Pneumonia, recent transition from PEG tube to PO thick liquid, possible aspiration. Call Completed: No 10/10/17 16:26 Consult to Cloth Folder Hand [CONS] Routine Reason for SW Consult: [facility] 10/13/17 14:16 Consult to Palliative Care [CONS] Routine Comment: Consulting Provider: Palliative Care Marlen Reason for Consult: Goals of care; >? feeding tube vs change in code status Time Notified: 14:16 Call Completed: Yes Discharging clinician: Thi Ochoa Anticipated date of discharge: 10/14/17 - Patient Status Disposition: Transfer [facility] Condition: Fair Functional capacity at discharge: wheelchair bound Overall status at discharge: patient is progressing back to baseline - Discharge Instructions [facility] Up With: [facility] [Primary Care Provider[facility] - (in 1 week) - Diet and Activity Activity: wear oxygen at all times Diet: other (Pureed diet, honey thickened liquids BY SPOON ONLY. Supervised at all times) Hospital course: Mr. Carlin is a 62 year old male patient with history of prior CVA and left- sided residual palsy who resides at [facility] was brought to the ER with complaints of acute onset shortness of breath possibly related to aspiration while his diet was being advanced. Patient has had dysphagia related to his prior stroke. On arrival here, he was acutely hypoxic. Requiring BiPAP. He was diagnosed with aspiration pneumonia and was started on IV antibiotics. He also received breathing treatments with bronchodilator nebs. He continued to stay on BiPAP for the initial day and was slowly weaned down to nasal cannula. He required high flow nasal cannula at 12 L/m initially and has now been transitioned down to 3 L/m weight is saturating at 91-95%. Speech Therapy has evaluated patient and a modified barium swallow study was also done. Patient is aspirating with nectar thick liquids when he uses a cup. As such he has been placed on a pureed diet with use of honey thick liquids only with a spoon. He should be watched closely during his feeds for signs of aspiration. Aspiration precautions are to be taken. They also recommended alternative forms of nutrition but patient was not willing to have any sort of feeding tube placed. He does wish to remain full code. He does understand that he may continue to aspirate and develop recurrent bouts of pneumonia. I did discuss his case with his provider at [facility] who is in agreement with the treatment plan. Presently patient is doing much better compared to his initial hospitalization. He denies any complaints at this time. His white count is back down to normal. He will be discharged back to [facility] today and will complete antibiotic course with Augmentin. Patient did grow enterococcus in his urine and this is sensitive to methicillin. This will also be treated with Augmentin. He has now been accepted for transfer to the [facility] medical unit. He will be will evaluated over the next couple of days and then transition to long-term care unit if he continues to improve. - Time Spent with Patient Total time spent providing and/or coordinating discharge services: Greater than 30 minutes (35 min) - Constitutional Vitals: Temp Pulse Resp BP Pulse Ox 97.7 F 100 16 156/96 95 10/14/17 11:43 10/14/17 11:43 10/14/17 12:13 10/14/17 11:43 10/14/17 12:13 General appearance: Present: cooperative, A&O X 1, obese, answers questions appropriately (Answers some questions appropriately) - Respiratory Respiratory exam: Present: prolonged expiratory phase, rhonchi. Absent: accessory muscle use, rales, wheezes Additional comments: Coarse breath sounds bilaterally - Neurological Exam Neurological exam: Present: alert. Absent: facial droop, speech deficit Additional comments: Left-sided residual palsy - Skin Skin exam: Present: dry, intact - VTE Documentation of Mechanical Device: Intermittent pneumatic compression device
== END 2017-10-14 13:00 | DRG 177 ==
LOC: EMEROO 23:53 → SUATTDRO 10-10 01:30 → 2NENU 10-10 01:30
PROVIDERS: ADMIT Internal Medicine; ATTEND Internal Medicine

== ENCOUNTER 2017-10-16 18:46 | Inpatient (IN) ==
[~2017-10-16 18:46] MED LIST: *HR* Amiodarone Premix 150 MG/100 ML BAG IVPB ONE; *HR* Amiodarone Premix 360 MG/200 ML BAG IVC ONE; *HR* Atropine Sulfate 1 MG/10 ML SYRINGE IV ONE; *HR* EPINEPHrine 1 MG/10 ML SYRINGE IVP ONE
[2017-10-16] MEDS ORDERED: Ondansetron 4 MG/2 ML VIAL IVP PRN (21:16)
[2017-10-16] MEDS ORDERED: Naloxone 0.4 MG/ML INJ IVP PRN (21:16)
[2017-10-16] MEDS ORDERED: Acetaminophen 325 MG TABLET PO PRN (21:16)
[2017-10-16] MEDS ORDERED: Ipratropium/Albuterol Neb 3 ML IH PRN (21:21)
[2017-10-16] MEDS ORDERED: Saline Nasal Spray 44 ML BOTTLE NS PRN (21:33)
[2017-10-16] MEDS ORDERED: Vancomycin 1,000 MG in D5% in Water 250 ML IVPB SCH (22:00)
--- NOTE | 2017-10-16 22:04 | Internal Med History&Physical ---
Date of Encounter: 10/16/17 Time of Encounter: 20:30 Assessment and Plan (1) Hypernatremia Current visit: Yes Status: Acute [facility] 150 [facility]. Pt may has dehydration as he also has ANTHONY with Cr increased from 0.3 to 1.3. - Will give low rate 0.45% NS at 80ml/hr as pt is currently NPO. - Closely f/u sodium level (2) Pneumonia Current visit: No Status: Acute Pt has recent hospitalization. He has Hx of CVA with dysphagia. Hospital acquired pneumonia vs aspiration. - Place pt on NPO, swallow evaluation. - Place on vanco/zosyn/flagyl. - Oxygen supportive with NC and BiPAP as needed. - Duoneb and robitussin DM Qualifiers: Pneumonia type: aspiration pneumonia Aspiration pneumonia type: due to regurgitated food Laterality: right Lung location: lower lobe of lung Qualified Code(s): J69.0 - Pneumonitis due to inhalation of food and vomit (3) History of CVA (cerebrovascular accident) Current visit: No Status: Acute Cont antiplatelet and statin if pt can pass swallow evaluation (4) DVT prophylaxis Current visit: No Status: Acute Heparin SC (5) Dysphagia as late effect of cerebrovascular accident (CVA) Current visit: No Status: Acute (6) ANTHONY (acute kidney injury) Current visit: Yes Status: Acute Cr increased from baseline. Give low rate IVF and f/u renal function. (7) Acute respiratory failure with hypoxia Current visit: No Status: Acute Consider from pneumonia. Will treat underlying disease and give Oxygen supportive treatment. Internal Medicine - H&P: HPI Chief complaint: SOB Admitted From: Intrahospital Transfer Plans for Post Hospital Care: Transfer [facility] History of present illness: Mr. Carlin is a 62 year old male with Hx of dementia, COPD, Hx of CVA with left residual hemiplegia, dysphagia, transferred from [facility] for SOB, cough, and fever. Pt was recently hospitalized for pneumonia. He was found increased SOB, cough, desaturation, and increased oxygen requirement. He was found fever with T 100.3 and 103. CXR shows B/L basal infiltrate, consider pneumonia or pulmonary edema. Pt was transferred for suspected aspiration pneumonia. Past Med Surg Social Fam HX - Past Medical History Medical history: CVA, dementia, hyperlipidemia, hypertension, venous stasis Psychiatric history: schizophrenia - Past Surgical History Surgical History: no surgical history - Social History Smoking Status: Former smoker Smokeless Tobacco Status: No Alcohol use: none Drug use: none Internal Medicine - H&P: Meds Acetaminophen [Tylenol Arthritis] 650 mg PO Q8H 10/10/17 [History] Atorvastatin [Lipitor] 40 mg PO HS 10/10/17 [History] Bisacodyl [Dulcolax] 10 mg RC Q48H PRN 10/10/17 [History] Calamine/Zinc Oxide [Calamine Lotion] 1 appl TP BID PRN 10/10/17 [History] Clomipramine HCl 50 mg PO QAM 10/10/17 [History] Cyprohepatdine [Periactin] 4 mg PO HS 10/10/17 [History] Divalproex (24 HR) [Depakote ER (24 HR)] 1,500 mg PO HS 10/10/17 [History] Furosemide [Lasix] 10 mg PO Q48H 10/10/17 [History] Gabapentin [Neurontin] 800 mg PO QID 10/10/17 [History] Ipratropium/Albuterol Neb [Duoneb] 3 ml IH Q4HR 10/10/17 [History] Lisinopril [Zestril] 10 mg PO DAILY 10/10/17 [History] MOM Conc [MILK OF MAGNESIA conc] 30 ml PO HS PRN 10/10/17 [History] Melatonin [Melatin] 9 mg PO HS 10/10/17 [History] Montelukast [Singulair] 10 mg PO DAILY 10/10/17 [History] Omeprazole [PriLOSEC] 20 mg PO DAILY 10/10/17 [History] Paliperidone Palmitate [Invega Sustenna] 234 mg IM QMONTH 10/10/17 [History] Saline Nasal [place] [[place] Nasal [place]] 1 spray NS BID PRN 10/10/17 [History] Selenium Sulfide [Selrx] 1 appl TP TUFR 10/10/17 [History] Sennosides/Docusate Sodium [Senna Plus] 2 each PO BID 10/10/17 [History] Sodium Chloride 2 gm PO BID 10/10/17 [History] Tramadol HCl [Ultram] 50 mg PO BID PRN 10/10/17 [History] Tramadol HCl [Ultram] 100 mg PO TID 10/10/17 [History] Urea [Keralac] 1 appl TP HS 10/10/17 [History] Zolpidem [Ambien] 5 mg PO HS 10/10/17 [History] risperiDONE [Risperidone] 1 mg PO HS 10/10/17 [History] Amoxicillin/Clavulanate [Augmentin] 875 mg PO BIDWM 5 Days tablet 10/14/17 [Rx] 3 Allergy/AdvReac Type Severity Reaction Status Date / Time methocarbamol [From Robaxin] Allergy Rash Verified 05/14/15 20:18 All Systems PM: A 10-system review of systems was performed and is negative for pertinent findings except as documented above in the HPI. - Constitutional Vitals: Temp Pulse Resp BP Pulse Ox 100.8 F H 119 20 171/112 89 10/16/17 20:46 10/16/17 20:46 10/16/17 20:46 10/16/17 20:46 10/16/17 20:46 General appearance: Present: A&O X 2, no acute distress, answers questions appropriately - Head Head exam: Present: atraumatic, normocephalic - Eye Eye exam: Present: PERRL, conjuntiva pink, sclera anicteric Pupils: Present: PERRL - Neck Neck exam general surgery: Present: supple, trachea midline. Absent: lymphadenopathy - Respiratory Respiratory exam: Present: CTAB, rhonchi (Diffused rhonchi B/L, Lt > Rt), wheezes. Absent: accessory muscle use, rales - Cardiovascular Cardiovascular exam: Present: RRR, +S1, +S2. Absent: diastolic murmur, gallop, rubs, systolic murmur - GI/Abdominal GI/Abdominal exam: Present: normal bowel sounds, soft, no peritoneal signs. Absent: distended, tenderness - Extremities Exam Extremities exam: Present: warm, radial pulses palpable and symmetrical. Absent : calf tenderness, cyanotic, pedal edema - Neurological Exam Neurological exam: Present: CN II-XII intact, oriented X3, no focal deficits. Absent: pronater drift, facial droop, speech deficit - Skin Skin exam: Present: dry, intact
[2017-10-16 22:19] LABS: Basophils # 0.1 K/mcL (0.0-0.2); Basophils % 0.8 %; Eosinophils # 0.1 K/mcL (0.0-0.6); Eosinophils % 0.8 %; Hematocrit 37.6 % (37.5-50.1); Hemoglobin 11.3 g/dL (12.9-16.9); Immature Granulocytes % 1.1 % (0-4); Lymphocytes # 1.1 K/mcL (0.6-4.6); Lymphocytes % 10.1 %; Mean Corpuscular HGB Conc 30.1 g/dL (31.6-35.5); Mean Corpuscular Hemoglobin 28.8 pg (28.0-33.3); Mean Corpuscular Volume 95.7 fL (83.0-100.0); Monocytes # 1.5 K/mcL (0.0-1.3); Monocytes % 13.8 %; Neutrophils # 7.8 K/mcL (1.6-8.9); Platelet Count 202 K/mcL (140-400); Red Blood Count 3.93 M/mcL (4.19-5.50); Red Cell Distribution Width 14.6 % (11.5-14.5); Segmented Neutrophils % 73.4 %
[2017-10-16 22:32] LABS: Alanine Aminotransferase 13 Units/L (7-52); Albumin 2.9 g/dL (3.5-5.7); Albumin/Globulin Ratio 0.7 (1.1-2.2); Alkaline Phosphatase 46 Units/L (34-104); Aspartate Amino Transferase 15 Units/L (13-39); BUN/Creatinine Ratio 14 (6-26); Bilirubin,Total 0.4 mg/dL (0.3-1.0); Blood Urea Nitrogen 19 mg/dL (8-23); Calcium 9.9 mg/dL (8.6-10.3); Carbon Dioxide 42 mEq/L (23-29); Chloride 104 mEq/L (98-107); Globulin 3.9 g/dL (2.4-3.5); Glucose 93 mg/dL (70-105); Osmolality,Calculated 316 (280-300); Potassium 3.2 mEq/L (3.5-5.1); Sodium 152 mEq/L (136-145); Total Protein 6.8 g/dL (6.4-8.9); eGFR For African Americans > 60 (> 60); eGFR For Non-African Americans 53 (> 60)
[2017-10-16] MEDS ORDERED: Acetaminophen 650 MG RECTAL SUPP RC PRN (22:43)
[2017-10-17] MEDS: MetroNIDAZOLE 500 MG/100 ML 500 MG/100 ML BAG IVPB SCH ×4 (00:12→23:54)
[2017-10-17] MEDS: Vancomycin 1,000 MG in D5% in Water 250 ML IVPB SCH ×3 (00:12→22:10)
[2017-10-17] MEDS: Piperacillin/Tazobactam 3.375 GM/200 ML BAG IVPB SCH ×4 (00:53→23:14)
[2017-10-17] MEDS: Ipratropium/Albuterol Neb 3 ML IH SCH ×5 (03:49→21:26)
[2017-10-17 04:11] LABS: Basophils # 0.1 K/mcL (0.0-0.2); Basophils % 0.5 %; Eosinophils % 0.1 %; Hematocrit 39.8 % (37.5-50.1); Hemoglobin 12.2 g/dL (12.9-16.9); Immature Granulocytes % 1.6 % (0-4); Immature Platelets 1.6 % (1.1-6.1); Lymphocytes # 0.7 K/mcL (0.6-4.6); Lymphocytes % 5.3 %; Mean Corpuscular HGB Conc 30.7 g/dL (31.6-35.5); Mean Corpuscular Hemoglobin 29.4 pg (28.0-33.3); Mean Corpuscular Volume 95.9 fL (83.0-100.0); Mean Platelet Volume 9.3 fL (9.4-12.4); Monocytes # 1.5 K/mcL (0.0-1.3); Monocytes % 10.3 %; Neutrophils # 11.5 K/mcL (1.6-8.9); Platelet Count 217 K/mcL (140-400); Red Blood Count 4.15 M/mcL (4.19-5.50); Red Cell Distribution Width 14.6 % (11.5-14.5); Segmented Neutrophils % 82.2 %
[2017-10-17 04:46] LABS: Alanine Aminotransferase 12 Units/L (7-52); Albumin 2.8 g/dL (3.5-5.7); Albumin/Globulin Ratio 0.7 (1.1-2.2); Alkaline Phosphatase 45 Units/L (34-104); Aspartate Amino Transferase 17 Units/L (13-39); BUN/Creatinine Ratio 15 (6-26); Bilirubin,Total 0.4 mg/dL (0.3-1.0); Blood Urea Nitrogen 20 mg/dL (8-23); Calcium 9.7 mg/dL (8.6-10.3); Carbon Dioxide 33 mEq/L (23-29); Chloride 105 mEq/L (98-107); Globulin 3.9 g/dL (2.4-3.5); Glucose 103 mg/dL (70-105); Magnesium 2.4 mg/dL (1.6-2.6); Osmolality,Calculated 321 (280-300); Potassium 4.1 mEq/L (3.5-5.1); Sodium 154 mEq/L (136-145); Total Protein 6.7 g/dL (6.4-8.9); eGFR For African Americans > 60 (> 60); eGFR For Non-African Americans 55 (> 60)
[2017-10-17] MEDS ORDERED: *HR* Metoprolol 5 MG/5 ML VIAL IVP PRN (05:24)
[2017-10-17] MEDS ORDERED: *HR* LORazepam 2 MG/ML VIAL IVP ONE (05:27)
[2017-10-17] MEDS ORDERED: D5% in Water 1,000 ML IVC SCH (05:30)
[2017-10-17] MEDS: *HR* Heparin 5,000 UNIT/ML VIAL SQ SCH ×2 (05:40→18:12)
[2017-10-17 05:51] LABS: ABG Base Excess 16 mEq/L (-2 to 3); ABG HCO3 42 mEq/L (21-27); ABG Oxygen Saturation 92 % (95-98); ABG PCO2 52 mmHg (35-45); ABG PH 7.52 pH Units (7.32-7.45); ABG PO2 58 mmHg (85-104); ABG TCO2 43 mEq/L (20-26); Blood Gas PEEP 7 cm H2O
[2017-10-17 08:10] LABS: ABG Base Excess 17 mEq/L (-2 to 3); ABG HCO3 44 mEq/L (21-27); ABG Oxygen Saturation 97 % (95-98); ABG PCO2 60 mmHg (35-45); ABG PH 7.47 pH Units (7.32-7.45); ABG PO2 90 mmHg (85-104); ABG TCO2 46 mEq/L (20-26)
--- NOTE | 2017-10-17 08:37 | Pulmonology Consult Note ---
<Hawk Valverde - Last Filed: 10/17/17 11:07> Date of Encounter: 10/17/17 Time of Encounter: 08:45 Assessment and Plan (1) Pneumonia Current Visit: No Status: Acute Patient presented with cough and increasing shortness of breath. Likely aspiration; secondary to dysphasia due to CVA. Initial white count 10.6; increased to 14.0. CXR demonstrated the following: -R lung opacities, possible worsening PNA, aspiration, or asymmetric edema. Increasing R pleural effusion. Plan: -Vancomycin 1000 mg IV Q12 -Zosyn 3.375 g IV Q8 -Flagyl 500 mg IV Q8 -DuoNeb's -Swallow evaluation -O2 via nasal cannula and BiPAP as needed. -Patient CODE STATUS is currently listed as full code; will contact POA to address this. Qualifiers: Pneumonia type: aspiration pneumonia Aspiration pneumonia type: due to regurgitated food Laterality: right Lung location: lower lobe of lung Qualified Code(s): J69.0 - Pneumonitis due to inhalation of food and vomit (2) Acute respiratory failure with hypoxia Current Visit: No Status: Acute Initially presented with shortness of breath; initial oxygen saturation was 89. Patient's initial carbon dioxide was 42. Has since decreased to 33. Currently on BiPAP; O2 saturation 95. Plan: -Echocardiogram has been ordered. -Treat underlying disease; oxygen support as needed. (3) Hypernatremia Current Visit: Yes Status: Acute Patient's sodium level was noted to be elevated at the [facility] at 130. Patient has dehydration with ANTHONY. Initial creatinine was 1.35; since decreased 1.32. Continue to monitor patient's creatinine. (4) Tachycardia Current Visit: Yes Status: Acute Patient initially presented with an elevated heart rate at 119 bpm. Last heart rate was 113. Plan: -Lopressor 5 mg IV Q6H PRN. -Continue to monitor vital signs. (5) History of CVA (cerebrovascular accident) Current Visit: No Status: Acute Continue antiplatelet and statin if patient can pass a swallow evaluation. -Per speech therapy: honey nectar via spoon; Patient has not been tolerating liquids well. -May require peg tube; will speak to patient's POA. -If POA is not interested in PEG, will consult palliative. (6) DVT prophylaxis Current Visit: No Status: Acute History of Present Illness Consult date: 10/17/17 Reason for consult: dyspnea, cough Chief complaint: Shortness of breath History of present illness: Mr. Carlin is a 62-year-old female with a past medical history of dementia, COPD , history of CVA with left residual hemiplegia, dysphagia who presented to the hospital as a transfer from the [facility] with a chief complaint of shortness of breath , cough, and fever. Patient was recently hospitalized for pneumonia. Patient was found to be increasingly short of breath with a cough. He also had an increased oxygen requirement. Patient was initially found to have an elevated temperature of 100.3. Check sister and demonstrated the presence of bilateral basal infiltrate, consider pneumonia or pulmonary edema. Patient was transferred for suspected aspiration pneumonia. He was placed on O2 via nasal cannula and BiPAP as needed. He was started on vancomycin, Zosyn, and Flagyl. Patient was seen and examined at bedside this morning. He is currently on BiPAP. Patient is currently awake and alert but is nonverbal. He does not appear to be in any acute distress. Does not appear to be in pain. Past Med Surg Social Fam HX - Past Medical History Medical history: CVA, dementia, hyperlipidemia, hypertension, venous stasis Psychiatric history: schizophrenia - Past Surgical History Surgical History: no surgical history - Social History Smoking Status: Former smoker Smokeless Tobacco Status: No Alcohol use: none Drug use: none Medications and Allergies Acetaminophen [Tylenol Arthritis] 650 mg PO Q8H PRN 10/10/17 [History] Atorvastatin [Lipitor] 40 mg PO HS 10/10/17 [History] Bisacodyl [Dulcolax] 10 mg RC Q48H PRN 10/10/17 [History] Calamine/Zinc Oxide [Calamine Lotion] 1 appl TP BID PRN 10/10/17 [History] Clomipramine HCl 50 mg PO QAM 10/10/17 [History] Cyprohepatdine [Periactin] 4 mg PO HS 10/10/17 [History] Divalproex (24 HR) [Depakote ER (24 HR)] 1,500 mg PO HS 10/10/17 [History] Furosemide [Lasix] 10 mg PO Q48H 10/10/17 [History] Gabapentin [Neurontin] 800 mg PO TID 10/10/17 [History] Ipratropium/Albuterol Neb [Duoneb] 3 ml IH Q4HR PRN 10/10/17 [History] Lisinopril [Zestril] 10 mg PO DAILY 10/10/17 [History] MOM Conc [MILK OF MAGNESIA conc] 30 ml PO HS PRN 10/10/17 [History] Melatonin [Melatin] 9 mg PO HS 10/10/17 [History] Montelukast [Singulair] 10 mg PO DAILY 10/10/17 [History] Omeprazole [PriLOSEC] 20 mg PO DAILY 10/10/17 [History] Paliperidone Palmitate [Invega Sustenna] 234 mg IM QMONTH 10/10/17 [History] Saline Nasal [place] [[place] Nasal [place]] 1 spray NS BID PRN 10/10/17 [History] Selenium Sulfide [Selrx] 1 appl TP TUFR 10/10/17 [History] Sennosides/Docusate Sodium [Senna Plus] 2 each PO BID 10/10/17 [History] Sodium Chloride 2 gm PO BID 10/10/17 [History] Tramadol HCl [Ultram] 50 mg PO BID PRN 10/10/17 [History] Tramadol HCl [Ultram] 100 mg PO TID 10/10/17 [History] Urea [Keralac] 1 appl TP HS 10/10/17 [History] Zolpidem [Ambien] 5 mg PO HS 10/10/17 [History] risperiDONE [Risperidone] 1 mg PO HS 10/10/17 [History] Amoxicillin/Clavulanate [Augmentin] 875 mg PO BIDWM 5 Days tablet 10/14/17 [Rx] 3 Allergy/AdvReac Type Severity Reaction Status Date / Time methocarbamol [From Robaxin] Allergy Rash Verified 05/14/15 20:18 ROS unobtainable: other (Currently nonverbal; on BiPAP) All Systems: A 10-system review of systems was performed and is negative for pertinent findings except as documented above in the HPI. Physical Examination Vital Signs: Vital Signs, Last 4 Hours Temp Pulse Resp BP Pulse Ox 10/17/17 08:11 102.9 F H 113 26 106/79 95 General appearance: no acute distress Eyes: nonicteric ENT: oropharynx dry Effort: other (Patient is currently on BiPAP) Auscultation: bilateral: diminished breath sounds Cardiovascular: other (Patient is tachycardic) Extremities: other (Both feet are wrapped; possibly due to ulcers) Results - Laboratory Findings CBC and BMP: 10/17/17 03:42 10/17/17 03:42 ABG ABG pH 7.47 pH Units (7.32-7.45) H 10/17/17 08:07 ABG pCO2 60 mmHg (35-45) H 10/17/17 08:07 ABG pO2 90 mmHg (85-104) 10/17/17 08:07 ABG O2 Saturation 97 % (95-98) 10/17/17 08:07 Abnormal lab findings: Abnormal lab results WBC 14.0 K/mcL (4.3-11.1) H 10/17/17 03:42 RBC 4.15 M/mcL (4.19-5.50) L 10/17/17 03:42 Hgb 12.2 g/dL (12.9-16.9) L 10/17/17 03:42 MCHC 30.7 g/dL (31.6-35.5) L 10/17/17 03:42 RDW 14.6 % (11.5-14.5) H 10/17/17 03:42 MPV 9.3 fL (9.4-12.4) L 10/17/17 03:42 Neutrophils # 11.5 K/mcL (1.6-8.9) H 10/17/17 03:42 Monocytes # 1.5 K/mcL (0.0-1.3) H 10/17/17 03:42 ABG pH 7.47 pH Units (7.32-7.45) H 10/17/17 08:07 ABG pCO2 60 mmHg (35-45) H 10/17/17 08:07 ABG HCO3 44 mEq/L (21-27) H 10/17/17 08:07 ABG Total CO2 46 mEq/L (20-26) H 10/17/17 08:07 ABG Base Excess 17 mEq/L (-2 to 3) H 10/17/17 08:07 Sodium 154 mEq/L (136-145) H 10/17/17 03:42 Carbon Dioxide 33 mEq/L (23-29) H 10/17/17 03:42 Creatinine 1.32 mg/dL (0.70-1.30) H 10/17/17 03:42 Est GFR (Non-Af Amer) 55 (> 60) L 10/17/17 03:42 Calculated Osmolality 321 (280-300) H 10/17/17 03:42 Albumin 2.8 g/dL (3.5-5.7) L 10/17/17 03:42 Globulin 3.9 g/dL (2.4-3.5) H 10/17/17 03:42 Albumin/Globulin Ratio 0.7 (1.1-2.2) L 10/17/17 03:42 - Microbiology Findings Microbiology Findings: Microbiology, Last 48 Hours 10/17/17 04:45 Influenza Types A,B Antigen (KRUPA) - Final Nasopharyngeal - Clinical Findings Intake & Output: Intake & Output 10/16/17 10/17/17 10/17/17 23:59 07:59 15:59 Intake Total 0 / 0 250 / 250 Output Total 350 / 350 150 / 150 Balance -350 / -350 100 / 100 Weight 73.3 kg Consult Discharge Plan - Plan [facility]: [facility]Primary Care Provider[facility] - <Chris Keenan - Last Filed: 10/17/17 15:35> Date of Encounter: 10/17/17 All Systems: A 10-system review of systems was performed and is negative for pertinent findings except as documented above in the HPI. Physical Examination Vital Signs: Vital Signs, Last 4 Hours Temp Pulse Resp BP Pulse Ox 10/17/17 14:00 88 18 107/67 95 10/17/17 13:00 92 20 107/64 94 10/17/17 12:00 100.5 F H 98 20 113/67 90 10/17/17 11:36 100.5 F H Results - Laboratory Findings CBC and BMP: 10/17/17 03:42 10/17/17 03:42 ABG ABG pH 7.44 pH Units (7.32-7.45) 10/17/17 14:20 ABG pCO2 67 mmHg (35-45) H 10/17/17 14:20 ABG pO2 65 mmHg (85-104) L 10/17/17 14:20 ABG O2 Saturation 92 % (95-98) L 10/17/17 14:20 Abnormal lab findings: Abnormal lab results WBC 14.0 K/mcL (4.3-11.1) H 10/17/17 03:42 RBC 4.15 M/mcL (4.19-5.50) L 10/17/17 03:42 Hgb 12.2 g/dL (12.9-16.9) L 10/17/17 03:42 MCHC 30.7 g/dL (31.6-35.5) L 10/17/17 03:42 RDW 14.6 % (11.5-14.5) H 10/17/17 03:42 MPV 9.3 fL (9.4-12.4) L 10/17/17 03:42 Neutrophils # 11.5 K/mcL (1.6-8.9) H 10/17/17 03:42 Monocytes # 1.5 K/mcL (0.0-1.3) H 10/17/17 03:42 ABG pCO2 67 mmHg (35-45) H 10/17/17 14:20 ABG pO2 65 mmHg (85-104) L 10/17/17 14:20 ABG HCO3 46 mEq/L (21-27) H 10/17/17 14:20 ABG Total CO2 48 mEq/L (20-26) H 10/17/17 14:20 ABG O2 Saturation 92 % (95-98) L 10/17/17 14:20 ABG Base Excess 18 mEq/L (-2 to 3) H 10/17/17 14:20 Sodium 154 mEq/L (136-145) H 10/17/17 03:42 Carbon Dioxide 33 mEq/L (23-29) H 10/17/17 03:42 Creatinine 1.32 mg/dL (0.70-1.30) H 10/17/17 03:42 Est GFR (Non-Af Amer) 55 (> 60) L 10/17/17 03:42 POC Glucose 104 (58-89) H 10/17/17 11:09 Calculated Osmolality 321 (280-300) H 10/17/17 03:42 Albumin 2.8 g/dL (3.5-5.7) L 10/17/17 03:42 Globulin 3.9 g/dL (2.4-3.5) H 10/17/17 03:42 Albumin/Globulin Ratio 0.7 (1.1-2.2) L 10/17/17 03:42 - Microbiology Findings Microbiology Findings: Microbiology, Last 48 Hours 10/17/17 04:45 Influenza Types A,B Antigen (KRUPA) - Final Nasopharyngeal - Clinical Findings Intake & Output: Intake & Output 10/16/17 10/17/17 10/17/17 23:59 07:59 15:59 Intake Total 0 / 0 550 / 550 550 / 550 Output Total 350 / 350 150 / 150 325 / 325 Balance -350 / -350 400 / 400 225 / 225 Weight 73.3 kg 80.7 kg - Attending Attestation I examined this patient and my medical decision-making was reviewed with the Resident Physician. I agree with the documented findings, disposition and treatment plan as described except to the extent set forth below. Patient seen and examined. Labs, radiology, chart personally reviewed. I was called to evaluate this patient in 2 N. and he was lethargic. 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 Pulmonary: Reviewed chest x-ray personally with evidence of airspace disease most likely consistent with aspiration pneumonia and is covered with antibiotics. Patient is doing reasonably well on noninvasive ventilation. If worsen then he will need invasive ventilation for that reason patient was transferred to the floor and patient remain full code. Cardiovascular: stable GI: Nutrition per dietary and GI prophylaxis per routine. GI consult for possible PEG tube otherwise will need palliative care Heme: DVT prophylaxis per routine ID: Continue antibiotics and plan to de-escalation Renal; urine out put and renal funtion reviewed Endorcine: blood glucose is monitored Lines: all lines checked and no evidence of infections Skin: skin care to prevent pressure ulcers per nursing routine care Overall prognosis I suspect is poor. Thank you for consultation.
--- NOTE | 2017-10-17 08:38 | Event Note ---
Date of Encounter: 10/17/17 Time of Encounter: 08:35 I have evaluated the patient at bedside in room 2 N 12. He was admitted overnight with acute respiratory failure, secondary to aspiration pneumonia, secondary to dysphagia due to old CVA. The patient is awake alert but nonverbal. He is ill-appearing but in no acute distress. Heart is tachycardic. Lung sounds are diminished. Abdomen is soft with hypoactive bowel sounds. ABG results were reviewed, shows metabolic alkalosis. The patient was evaluated by the critical care team and they decided to transfer the patient to the ICU. This patient was transferred to the critical care team.
[2017-10-17] MEDS: D5% in Water 1,000 ML IVC SCH ×3 (09:15→23:13)
[2017-10-17 14:24] LABS: ABG Base Excess 18 mEq/L (-2 to 3); ABG HCO3 46 mEq/L (21-27); ABG Oxygen Saturation 92 % (95-98); ABG PCO2 67 mmHg (35-45); ABG PH 7.44 pH Units (7.32-7.45); ABG PO2 65 mmHg (85-104); ABG TCO2 48 mEq/L (20-26)
[2017-10-18] MEDS: Ipratropium/Albuterol Neb 3 ML IH SCH ×4 (03:40→22:28)
[2017-10-18] MEDS: *HR* Heparin 5,000 UNIT/ML VIAL SQ SCH ×2 (05:55→17:28)
[2017-10-18] MEDS: D5% in Water 1,000 ML IVC SCH (07:34)
[2017-10-18] MEDS: MetroNIDAZOLE 500 MG/100 ML 500 MG/100 ML BAG IVPB SCH (07:34)
[2017-10-18] MEDS: Piperacillin/Tazobactam 3.375 GM/200 ML BAG IVPB SCH ×3 (07:35→22:44)
[2017-10-18 09:22] LABS: Basophils # 0.1 K/mcL (0.0-0.2); Basophils % 0.6 %; Eosinophils # 0.2 K/mcL (0.0-0.6); Eosinophils % 1.5 %; Hematocrit 34.1 % (37.5-50.1); Lymphocytes # 1.2 K/mcL (0.6-4.6); Lymphocytes % 10.1 %; Mean Corpuscular HGB Conc 30.2 g/dL (31.6-35.5); Mean Corpuscular Hemoglobin 28.9 pg (28.0-33.3); Mean Corpuscular Volume 95.5 fL (83.0-100.0); Mean Platelet Volume 9.1 fL (9.4-12.4); Monocytes # 0.8 K/mcL (0.0-1.3); Neutrophils # 9.1 K/mcL (1.6-8.9); Platelet Count 188 K/mcL (140-400); Red Blood Count 3.57 M/mcL (4.19-5.50); Red Cell Distribution Width 14.5 % (11.5-14.5); Segmented Neutrophils % 79.8 %
[2017-10-18 09:25] LABS: Hemoglobin 10.3 g/dL (12.9-16.9)
[2017-10-18 09:39] LABS: Alanine Aminotransferase 10 Units/L (7-52); Albumin 2.6 g/dL (3.5-5.7); Albumin/Globulin Ratio 0.8 (1.1-2.2); Alkaline Phosphatase 37 Units/L (34-104); Aspartate Amino Transferase 13 Units/L (13-39); BUN/Creatinine Ratio 17 (6-26); Bilirubin,Total 0.5 mg/dL (0.3-1.0); Blood Urea Nitrogen 20 mg/dL (8-23); Calcium 8.7 mg/dL (8.6-10.3); Carbon Dioxide 39 mEq/L (23-29); Chloride 97 mEq/L (98-107); Globulin 3.3 g/dL (2.4-3.5); Glucose 113 mg/dL (70-105); Osmolality,Calculated 295 (280-300); Potassium 2.6 mEq/L (3.5-5.1); Sodium 141 mEq/L (136-145); Total Protein 5.9 g/dL (6.4-8.9); eGFR For African Americans > 60 (> 60); eGFR For Non-African Americans > 60 (> 60)
[2017-10-18] MEDS ORDERED: Aminoglycoside Consult 1 EACH MC ONE (10:41)
[2017-10-18 11:20] LABS: INR 1.7; Prothrombin Time 18.4 Seconds (9.4-12.1)
--- NOTE | 2017-10-18 12:39 | Palliative - Consult Note ---
Date of Encounter: 10/18/17 Time of Encounter: 10:30 - Assessment and Plan (1) Aspiration pneumonia Current Visit: No Status: Acute Assessment and plan: Being treated per ICU team. Continue plan per ICU team Qualifiers: Aspiration pneumonia type: due to regurgitated food Laterality: right Lung location: unspecified part of lung Qualified Code(s): J69.0 - Pneumonitis due to inhalation of food and vomit (2) History of CVA (cerebrovascular accident) Current Visit: No Status: Acute Assessment and plan: This is probably the source of the patient's dysphagia. Pass a swallow evaluation last week, however he has since aspirated yet again. Overall plan per hospitalist team see below regarding PEG tube (3) Dysphagia Current Visit: No Status: Acute Assessment and plan: As above plan for hospitalist team not sure if they plan another swallow eval. The patient did pass a swallow eval on the 12th of this month. She has also however had more aspiration since then. Qualifiers: Dysphagia type: oropharyngeal phase Qualified Code(s): R13.12 - Dysphagia, oropharyngeal phase (4) Goals of care, counseling/discussion Current Visit: No Status: Acute Assessment and plan: I believe the patient to be awake and alert and able to make decisions for himself. I believe that he does have an understanding of his illness leave his decisions are sound. Regarding CODE STATUS he does not wish to be resuscitated in the event of cardiac arrest he is okay with short-term intubation no trait. With regards to a PEG tube he did agree to it, however his #1 priority is to be able to taste specifically orange juice. Does pose a risk to him and he accepts that risk. He did sign a swallow waver last week. And accepts the risk of certain things that he wishes to taste. Her stance that he may need more nutrition that he is going to be a little ache by mouth and therefore is okay with the PEG tube, but he insists that he still be able to taste things specifically orange juice. Palliative-CN HPI - Data of Consult Patient: known to practice within the last 3 years Requesting Physician: David Arroyo MD [facility] - Consult Narrative Palliative Care/Comfort Measures: Palliative care Reason for consult: Continued aspiration status post CVA History of present illness: Mr. Carlin is a 62 year old male Patient is known to me from a consult last Monday on 10/13/2017. She is suffered a CVA, and is having difficult difficulty with swallowing. He 13 of October the patient did not want to have a feeding tube, he wanted to continue to eat. He did pass a swallow bedside swallow eval, and a video swallow showed difficulty only with large amounts of honey thick liquid everything else went down okay. Her amounts the honey thick also went down okay. She was discharged on the but has since aspirated yet again and is now return to the hospital. After I informed him that the recently he was here was because of further aspiration I went through with him again questions of whether or not he would want to have a feeding tube. At this time he is not using a BiPAP, is breathing well and has no pain. Please see the assessment and plan for results of the conversation. CC: David Arroyo MD Aspiration pneumonitis Past Med Surg Social Fam HX - Past Medical History Medical history: CVA, dementia, hyperlipidemia, hypertension, venous stasis Psychiatric history: schizophrenia - Past Surgical History Surgical History: no surgical history - Social History Smoking Status: Former smoker Smokeless Tobacco Status: No Alcohol use: none Drug use: none Medications and Allergies Acetaminophen [Tylenol Arthritis] 650 mg PO Q8H PRN 10/10/17 [History] Atorvastatin [Lipitor] 40 mg PO HS 10/10/17 [History] Bisacodyl [Dulcolax] 10 mg RC Q48H PRN 10/10/17 [History] Calamine/Zinc Oxide [Calamine Lotion] 1 appl TP BID PRN 10/10/17 [History] Clomipramine HCl 50 mg PO QAM 10/10/17 [History] Cyprohepatdine [Periactin] 4 mg PO HS 10/10/17 [History] Divalproex (24 HR) [Depakote ER (24 HR)] 1,500 mg PO HS 10/10/17 [History] Furosemide [Lasix] 10 mg PO Q48H 10/10/17 [History] Gabapentin [Neurontin] 800 mg PO TID 10/10/17 [History] Ipratropium/Albuterol Neb [Duoneb] 3 ml IH Q4HR PRN 10/10/17 [History] Lisinopril [Zestril] 10 mg PO DAILY 10/10/17 [History] MOM Conc [MILK OF MAGNLUIS conc] 30 ml PO HS PRN 10/10/17 [History] Melatonin [Melatin] 9 mg PO HS 10/10/17 [History] Montelukast [Singulair] 10 mg PO DAILY 10/10/17 [History] Omeprazole [PriLOSEC] 20 mg PO DAILY 10/10/17 [History] Paliperidone Palmitate [Invega Sustenna] 234 mg IM QMONTH 10/10/17 [History] Saline Nasal [place] [Eddy Nasal [place]] 1 spray NS BID PRN 10/10/17 [History] Selenium Sulfide [Selrx] 1 appl TP TUFR 10/10/17 [History] Sennosides/Docusate Sodium [Senna Plus] 2 each PO BID 10/10/17 [History] Sodium Chloride 2 gm PO BID 10/10/17 [History] Tramadol HCl [Ultram] 50 mg PO BID PRN 10/10/17 [History] Tramadol HCl [Ultram] 100 mg PO TID 10/10/17 [History] Urea [Keralac] 1 appl TP HS 10/10/17 [History] Zolpidem [Ambien] 5 mg PO HS 10/10/17 [History] risperiDONE [Risperidone] 1 mg PO HS 10/10/17 [History] Amoxicillin/Clavulanate [Augmentin] 875 mg PO BIDWM 5 Days tablet 10/14/17 [Rx] 3 Allergy/AdvReac Type Severity Reaction Status Date / Time methocarbamol [From Robaxin] Allergy Rash Verified 05/14/15 20:18 - Constitutional Constitutional ROS PAL: no decreased appetite, no anorexia, no chills - EENT Eyes: no discharge, no pain Ears: no ear discharge, no ear pain Ears, nose, mouth, throat: no facial pain, no hoarseness, no lip swelling, no mouth pain - Cardiovascular Cardiovascular ROS: no chest pain, no chest pain at rest, no chest pain with activity - Respiratory Respiratory: cough, dyspnea on exertion, wheezing - Gastrointestinal Gastrointestinal: no constipation, no diarrhea, no nausea, no vomiting - Genitourinary Genitourinary ROS male: no urinary frequency, no urinary hesitancy, no urinary incontinence - Musculoskeletal Musculoskeletal ROS IM: muscle weakness, no back pain, no joint swelling - Neurological Neurological ROS: abnormal movements, focal weakness - Psychiatric Psychiatric general PM: no confusion, no depression - Endocrine Endocrine IM: as per HPI Palliative Care-Exam - Constitutional Vitals: Temp Pulse Resp BP Pulse Ox 98.7 F 106 20 129/77 92 10/18/17 11:00 10/18/17 12:00 10/18/17 12:00 10/18/17 12:00 10/18/17 12:00 General appearance: Present: cooperative, thin - Head Head Exam: Absent: atraumatic, normal inspection - Eye Eye exam: Present: normal appearance - ENT ENT exam: Present: mucous membranes moist - Respiratory Respiratory exam: Present: decreased breath sounds, rhonchi - Cardiovascular Cardiovascular exam: Present: RRR - GI/Abdominal Exam GI/Abdominal exam: Present: normal bowel sounds, soft. Absent: tenderness - Neurological Exam Neurological exam: Present: alert (I believe he has good understanding of his illness. Exam was witnessed by Dr. Cramer Martinez he also feels the patient had good understanding of his illness.). Absent: speech deficit (The patient has a major speech deficit except very difficult to have a conversation with him.) - Psychiatric Psychiatric exam: Absent: agitated (He does get frustrated when people do not understand him.), anxious - Skin Skin exam: Present: dry, warm Internal Medicine - CN: Reslt - Labs CBC & Chem 7: 10/18/17 09:12 10/18/17 09:12 Labs: Short CBC 10/18/17 Range/Units 09:12 WBC 11.4 H (4.3-11.1) K/mcL Hgb 10.3 L D (12.9-16.9) g/dL Hct 34.1 L (37.5-50.1) % Plt Count 188 (140-400) K/mcL Neutrophils # 9.1 H (1.6-8.9) K/mcL BMP 10/18/17 09:12 Sodium 141 Potassium 2.6 L Chloride 97 L Carbon Dioxide 39 H BUN 20 Creatinine 1.18 Glucose 113 H Calcium 8.7 Liver Function 10/18/17 Range/Units 09:12 Total Bilirubin 0.5 (0.3-1.0) mg/dL AST 13 (13-39) Units/L ALT 10 (7-52) Units/L Alkaline Phosphatase 37 (34-104) Units/L Albumin 2.6 L (3.5-5.7) g/dL - ABG Interpretation ABG results: ABG ABG pH 7.44 pH Units (7.32-7.45) 10/17/17 14:20 ABG pCO2 67 mmHg (35-45) H 10/17/17 14:20 ABG pO2 65 mmHg (85-104) L 10/17/17 14:20 ABG O2 Saturation 92 % (95-98) L 10/17/17 14:20 PT/INR, D-dimer PT 18.4 Seconds (9.4-12.1) H 10/18/17 11:08 - Impressions Impressions Chest X-Ray 10/18/17 04:00 IMPRESSION: Stable right lower lobe airspace disease and pleural effusion. Volume loss within the right lung. D/ / 10/18/2017 07:54:30 Armando Friedman MD / dana Interpreting Provider: Armando Friedman MD Consult Discharge Plan - Plan [facility]errals: [facility] [Primary Care Provider] - Palliative Quality Palliative Quality: Screen for Code Status: Yes, Screen for Goals of Care: Yes, Screen for Pain: Yes, If Pain Regimen Started, Initiate Bowel Regimen: Yes, Screen for Nausea/Vomitting: Yes Code Status: 10/16/17 21:16 Resuscitation Status: Active [RES] Routine Comment: Resuscitation Status: Full Code Resuscitation Status: Active [RES] Routine Resuscitation Status: DNR-Comfort Care-Arrest Comment: short term intubation is ok
--- NOTE | 2017-10-18 12:56 | Pulmonology Progress Note ---
<Hawk Valverde - Last Filed: 10/18/17 13:03> Date of Encounter: 10/18/17 Time of Encounter: 08:00 Assessment and Plan (1) Pneumonia Current Visit: No Status: Acute Patient presented with cough and increasing shortness of breath. Likely aspiration; secondary to dysphasia due to CVA. Initial white count 10.6; increased to 14.0 yesterday, has come down to 11.4 today. CXR demonstrated the following: -R lung opacities, possible worsening PNA, aspiration, or asymmetric edema. Increasing R pleural effusion. Plan: -Vancomycin 1000 mg IV Q12 -Zosyn 3.375 g IV Q8 -Flagyl has been discontinued. -DuoNeb's -O2 via nasal cannula and BiPAP as needed. -Patient's CODE STATUS has been changed to DNR CCA. Patient is okay with short- term intubation. Qualifiers: Pneumonia type: aspiration pneumonia Aspiration pneumonia type: due to regurgitated food Laterality: right Lung location: lower lobe of lung Qualified Code(s): J69.0 - Pneumonitis due to inhalation of food and vomit (2) Acute respiratory failure with hypoxia Current Visit: No Status: Acute Initially presented with shortness of breath; initial oxygen saturation was 89. Patient's initial carbon dioxide was 42. Decreased to 33. Plan: -Treat underlying disease; oxygen support as needed. -O2 saturation was 93 this morning. (3) Hypernatremia Current Visit: Yes Status: Acute Patient's sodium level was noted to be elevated at the DE. Has since come down to 141. Repeat a.m. labs. (4) Tachycardia Current Visit: Yes Status: Acute Patient initially presented with an elevated heart rate at 119 bpm. Last heart rate was 84 bpm. Plan: -Lopressor 5 mg IV Q6H PRN. -Continue to monitor vital signs. (5) History of CVA (cerebrovascular accident) Current Visit: No Status: Acute Per palliative, patient is okay with a PEG tube as long as he is able to eat nectar fluids; is willing to sign a waiver stating that he is aware that it could go down the wrong tube. Per palliative, patient's CODE STATUS was changed to DNR CCA, but patient is okay with short-term intubation. (6) DVT prophylaxis Current Visit: No Status: Acute Subjective Interval history: Patient was seen and examined events of this morning. Currently on BiPAP. Patient is currently asleep and nonresponsive. Does not appear to be in any distress. Objective PUL Vital signs: Last Vital Signs Temp 98.7 F 10/18/17 11:00 Pulse 106 10/18/17 12:00 Resp 20 10/18/17 12:00 BP 129/77 10/18/17 12:00 Pulse Ox 92 10/18/17 12:00 General appearance: no acute distress ENT: oropharynx dry Auscultation: bilateral: rales, rhonchi Cardiovascular: irregular rhythm unable to assess due to mental status Results - Laboratory Findings CBC and BMP: 10/18/17 09:12 10/18/17 09:12 ABG ABG pH 7.44 pH Units (7.32-7.45) 10/17/17 14:20 ABG pCO2 67 mmHg (35-45) H 10/17/17 14:20 ABG pO2 65 mmHg (85-104) L 10/17/17 14:20 ABG O2 Saturation 92 % (95-98) L 10/17/17 14:20 PT/INR, D-dimer PT 18.4 Seconds (9.4-12.1) H 10/18/17 11:08 Abnormal lab findings: Abnormal lab results WBC 11.4 K/mcL (4.3-11.1) H 10/18/17 09:12 RBC 3.57 M/mcL (4.19-5.50) L 10/18/17 09:12 Hgb 10.3 g/dL (12.9-16.9) L D 10/18/17 09:12 Hct 34.1 % (37.5-50.1) L 10/18/17 09:12 MCHC 30.2 g/dL (31.6-35.5) L 10/18/17 09:12 MPV 9.1 fL (9.4-12.4) L 10/18/17 09:12 Neutrophils # 9.1 K/mcL (1.6-8.9) H 10/18/17 09:12 PT 18.4 Seconds (9.4-12.1) H 10/18/17 11:08 ABG pCO2 67 mmHg (35-45) H 10/17/17 14:20 ABG pO2 65 mmHg (85-104) L 10/17/17 14:20 ABG HCO3 46 mEq/L (21-27) H 10/17/17 14:20 ABG Total CO2 48 mEq/L (20-26) H 10/17/17 14:20 ABG O2 Saturation 92 % (95-98) L 10/17/17 14:20 ABG Base Excess 18 mEq/L (-2 to 3) H 10/17/17 14:20 Potassium 2.6 mEq/L (3.5-5.1) L 10/18/17 09:12 Chloride 97 mEq/L (98-107) L 10/18/17 09:12 Carbon Dioxide 39 mEq/L (23-29) H 10/18/17 09:12 Glucose 113 mg/dL (70-105) H 10/18/17 09:12 POC Glucose 114 (58-89) H 10/18/17 12:29 Serum Total Protein 5.9 g/dL (6.4-8.9) L 10/18/17 09:12 Albumin 2.6 g/dL (3.5-5.7) L 10/18/17 09:12 Albumin/Globulin Ratio 0.8 (1.1-2.2) L 10/18/17 09:12 Vancomycin Trough 21.9 mcg/mL (10-20) H* 10/18/17 09:12 - Microbiology Findings Microbiology Findings: Microbiology, Last 48 Hours 10/16/17 21:47 Blood Culture - Preliminary Peripheral Venipuncture No growth. 10/16/17 21:47 Blood Culture - Preliminary Peripheral Venipuncture No growth. 10/17/17 04:45 Influenza Types A,B Antigen (KRUPA) - Final Nasopharyngeal - Clinical Findings Intake & Output: Intake & Output 10/17/17 10/18/17 10/18/17 23:59 07:59 15:59 Intake Total 2550 / 2550 1300 / 1300 100 / 100 Output Total 400 / 400 600 / 600 200 / 200 Balance 2150 / 2150 700 / 700 -100 / -100 Weight 80.2 kg Consult Discharge Plan - Plan [facility]errals: [facility] [Primary Care Provider] - <Chris Keenan - Last Filed: 10/18/17 14:00> Date of Encounter: 10/18/17 Objective PUL Vital signs: Last Vital Signs Temp 98.7 F 10/18/17 11:00 Pulse 106 10/18/17 12:00 Resp 20 10/18/17 12:00 BP 129/77 10/18/17 12:00 Pulse Ox 92 10/18/17 12:00 Results - Laboratory Findings CBC and BMP: 10/18/17 09:12 10/18/17 09:12 ABG ABG pH 7.44 pH Units (7.32-7.45) 10/17/17 14:20 ABG pCO2 67 mmHg (35-45) H 10/17/17 14:20 ABG pO2 65 mmHg (85-104) L 10/17/17 14:20 ABG O2 Saturation 92 % (95-98) L 10/17/17 14:20 PT/INR, D-dimer PT 18.4 Seconds (9.4-12.1) H 10/18/17 11:08 Abnormal lab findings: Abnormal lab results WBC 11.4 K/mcL (4.3-11.1) H 10/18/17 09:12 RBC 3.57 M/mcL (4.19-5.50) L 10/18/17 09:12 Hgb 10.3 g/dL (12.9-16.9) L D 10/18/17 09:12 Hct 34.1 % (37.5-50.1) L 10/18/17 09:12 MCHC 30.2 g/dL (31.6-35.5) L 10/18/17 09:12 MPV 9.1 fL (9.4-12.4) L 10/18/17 09:12 Neutrophils # 9.1 K/mcL (1.6-8.9) H 10/18/17 09:12 PT 18.4 Seconds (9.4-12.1) H 10/18/17 11:08 ABG pCO2 67 mmHg (35-45) H 10/17/17 14:20 ABG pO2 65 mmHg (85-104) L 10/17/17 14:20 ABG HCO3 46 mEq/L (21-27) H 10/17/17 14:20 ABG Total CO2 48 mEq/L (20-26) H 10/17/17 14:20 ABG O2 Saturation 92 % (95-98) L 10/17/17 14:20 ABG Base Excess 18 mEq/L (-2 to 3) H 10/17/17 14:20 Potassium 2.6 mEq/L (3.5-5.1) L 10/18/17 09:12 Chloride 97 mEq/L (98-107) L 10/18/17 09:12 Carbon Dioxide 39 mEq/L (23-29) H 10/18/17 09:12 Glucose 113 mg/dL (70-105) H 10/18/17 09:12 POC Glucose 114 (58-89) H 10/18/17 12:29 Serum Total Protein 5.9 g/dL (6.4-8.9) L 10/18/17 09:12 Albumin 2.6 g/dL (3.5-5.7) L 10/18/17 09:12 Albumin/Globulin Ratio 0.8 (1.1-2.2) L 10/18/17 09:12 Vancomycin Trough 21.9 mcg/mL (10-20) H* 10/18/17 09:12 - Microbiology Findings Microbiology Findings: Microbiology, Last 48 Hours 10/16/17 21:47 Blood Culture - Preliminary Peripheral Venipuncture No growth. 10/16/17 21:47 Blood Culture - Preliminary Peripheral Venipuncture No growth. 10/17/17 04:45 Influenza Types A,B Antigen (KRUPA) - Final Nasopharyngeal - Clinical Findings Intake & Output: Intake & Output 10/17/17 10/18/17 10/18/17 23:59 07:59 15:59 Intake Total 2550 / 2550 1300 / 1300 100 / 100 Output Total 400 / 400 600 / 600 200 / 200 Balance 2150 / 2150 700 / 700 -100 / -100 Weight 80.2 kg - Attending Attestation I examined this patient and my medical decision-making was reviewed with the Resident Physician. I agree with the documented findings, disposition and treatment plan as described except to the extent set forth below. Patient seen and examined. Labs, radiology, chart personally reviewed. Agree with resident's history and physical, assessment, plan with following comments: LOAD PLANNER: Patient follows commands, patient is more awake. Pulmonary: Acceptable oxygenation and ventilation patient will be on and off BiPAP. Patient is risk of invasive mechanical ventilation and palliative care team know this patient and patient apparently has expressed not to have feeding tube. Cardiovascular: stable GI: Nutrition per dietary and GI prophylaxis per routine. Patient high risk for aspiration. Aspiration precaution and speech follow-up. Heme: DVT prophylaxis per routine ID: Continue antibiotics and plan to de-escalation Renal; urine out put and renal funtion reviewed Endorcine: blood glucose is monitored Lines: all lines checked and no evidence of infections Skin: skin care to prevent pressure ulcers per nursing routine care When the respect available we will consider transferring patient out.
--- NOTE | 2017-10-18 13:42 | Event Note ---
Date of Encounter: 10/18/17 Time of Encounter: 13:39 Addendum to earlier palliative care consultation. [facility] via our social service worker Anayeli Leslie patient's medical power of corporate attorney is his cousin Sia garcia Phone number is home phone [phone] nato L phone is [phone] work phone is [phone] Poor Ms. Stearns the [facility] does have paperwork designating Ms. vilchis as the medical power of corporate attorney. Liver at this time I believe that the patient is able to make decisions for himself although physically he would not be able to sign anything. Do not have the capability of writing.
--- NOTE | 2017-10-18 14:36 | Gastroenterology Consult Note ---
<Jennifer Maki - Last Filed: 10/18/17 14:34> Date of Encounter: 10/18/17 Time of Encounter: 12:00 - Assessment and plan (1) Dysphagia Current Visit: No Status: Acute Assessment and plan: Pt has dysphagia and recurrent aspiration pneumonia. Speech therapy has suggested the patient be kept NPO. He was evaluated for PEG tube. He is physically unable to sign consent. Difficult to determine pts mental status as he is unable to communicate verbally but did communicate with Dr Kiser via letter board. Sia Menon is listed as POA. I called and spoke with her and she states she doesn't think she is legally his POA and she is unsure of consenting for PEG tube as he was refusing last week. She states Vidalcharlotte Elizondo is his social insurance specialist at the [place] and he may have living will on file there. Will consult social insurance specialist for clarification of POA and proceed with PEG tube if consent is obtained. Qualifiers: Dysphagia type: oropharyngeal phase Qualified Code(s): R13.12 - Dysphagia, oropharyngeal phase - Time Spent With Patient Total time spent is greater than 50% in coordination of care (as documented) at patient's floor/unit and/or counseling patient: GI History of Present Illness - Data of Consult Patient: new to practice Consult date: 10/18/17 Requesting Physician: David Arroyo MD - Consult Narrative Reason for consult: dysphagia/PEG tube placement History of present illness: Mr. Carlin is a 62 year old male with Hx of dementia, COPD, and CVA with left residual hemiplegia, and dysphagia. He was transferred from [facility] for hypernatremia for a NA 150. Pt has recurrent pneumonia, most likely aspirational. He had speech evaluation and was recommened honey thickened liquids on last visit. He also had modified barium swallow on 10/10/17 which showed Gross aspiration with use of nectar consistency. Cough reflex was elicited. Mild aspiration with use of large bolus of honey consistency. Small boluses of honey consistency demonstrate no significant aspiration. Due to ongoing aspiration, speech therapy has recommended that the patient remain NPO. GI was consulted for PEG tube placement. Last week the patient was refusing peg or NG tube. Today the patient was able to communicate with Dr Kiser that he was agreeable to PEG tube placement, but is physically unable to sign consent. Labs show WBC 11.4, Hgb 10.3, potassium 2.6. Colonoscopy: EGD: NSAIDS/ASA: Anticoagulants: heparin 0600 this morning Past Med Surg Social Fam HX - Past Medical History Medical history: CVA, dementia, hyperlipidemia, hypertension, venous stasis Psychiatric history: schizophrenia - Past Surgical History Surgical History: no surgical history - Social History Smoking Status: Former smoker Smokeless Tobacco Status: No Alcohol use: none Drug use: none ROS unobtainable: due to mental status - Constitutional Vitals: Temp Pulse Resp BP Pulse Ox 98.7 F 104 20 146/88 97 10/18/17 11:00 10/18/17 14:00 10/18/17 14:00 10/18/17 14:00 10/18/17 14:00 Exam: CONSTITUTIONAL:~alert, unable to understand speech, pt shaking head yes and no.~ HEAD:~normocephalic.~EYES:~no jaundice.~NECK:~no obvious swelling.~HEART:~ regular rate and rhythm, tachycardic 105, no murmurs.~LUNGS:~bilateral good air entry.~ABDOMEN:~non distended, soft, non tender, no masses palpable, no organomegaly.~RECTAL EXAM:~Deferred.~EXTREMITIES:~no clubbing, cyanosis or edema.~SKIN:~no stigmata of chronic liver disease.~NEUROLOGIC:~no obvious focal defect.~~~~ Results - Labs CBC & Chem 7: 10/18/17 09:12 10/18/17 09:12 Labs: Last Result Calcium 8.7 mg/dL (8.6-10.3) 10/18/17 09:12 Entire Visit Hgb 10.3 g/dL (12.9-16.9) L D 10/18/17 09:12 Hct 34.1 % (37.5-50.1) L 10/18/17 09:12 PT 18.4 Seconds (9.4-12.1) H 10/18/17 11:08 Total Bilirubin 0.5 mg/dL (0.3-1.0) 10/18/17 09:12 AST 13 Units/L (13-39) 10/18/17 09:12 ALT 10 Units/L (7-52) 10/18/17 09:12 - ABG ABG results: ABG ABG pH 7.44 pH Units (7.32-7.45) 10/17/17 14:20 ABG pCO2 67 mmHg (35-45) H 10/17/17 14:20 ABG pO2 65 mmHg (85-104) L 10/17/17 14:20 ABG O2 Saturation 92 % (95-98) L 10/17/17 14:20 PT/INR, D-dimer PT 18.4 Seconds (9.4-12.1) H 10/18/17 11:08 - Impressions Impressions Chest X-Ray 10/18/17 04:00 IMPRESSION: Stable right lower lobe airspace disease and pleural effusion. Volume loss within the right lung. D/ / 10/18/2017 07:54:30 Armando Friedman MD / dana Interpreting Provider: Armando Friedman MD Consult Discharge Plan - Plan [facility]errals: [facility] [Primary Care Provider[facility] - <Rashard Boyce - Last Filed: 10/19/17 14:36> Date of Encounter: 10/19/17 Time of Encounter: 14:00 - Time Spent With Patient Total time spent is greater than 50% in coordination of care (as documented) at patient's floor/unit and/or counseling patient: GI History of Present Illness - Data of Consult Requesting Physician: David Arroyo MD - Consult Narrative History of present illness: Mr. Carlin is a 62 year old male - Constitutional Vitals: Temp Pulse Resp BP Pulse Ox 99.5 F 77 20 133/79 94 10/19/17 10:56 10/19/17 14:00 10/19/17 14:00 10/19/17 14:00 10/19/17 14:00 Results - Labs CBC & Chem 7: 10/19/17 05:24 10/19/17 05:24 Labs: Last Result Calcium 8.4 mg/dL (8.6-10.3) L 10/19/17 05:24 Entire Visit Hgb 9.2 g/dL (12.9-16.9) L 10/19/17 05:24 Hct 29.6 % (37.5-50.1) L 10/19/17 05:24 PT 18.4 Seconds (9.4-12.1) H 10/18/17 11:08 Total Bilirubin 0.5 mg/dL (0.3-1.0) 10/18/17 09:12 AST 13 Units/L (13-39) 10/18/17 09:12 ALT 10 Units/L (7-52) 10/18/17 09:12 - ABG ABG results: ABG ABG pH 7.44 pH Units (7.32-7.45) 10/17/17 14:20 ABG pCO2 67 mmHg (35-45) H 10/17/17 14:20 ABG pO2 65 mmHg (85-104) L 10/17/17 14:20 ABG O2 Saturation 92 % (95-98) L 10/17/17 14:20 PT/INR, D-dimer PT 18.4 Seconds (9.4-12.1) H 10/18/17 11:08 - Impressions Impressions Chest X-Ray 10/18/17 04:00 IMPRESSION: Stable right lower lobe airspace disease and pleural effusion. Volume loss within the right lung. D/ / 10/18/2017 07:54:30 Armando Friedman MD / dana Interpreting Provider: Armando Friedman MD - Attending Attestation I examined this patient and my medical decision-making was reviewed with the Resident Physician. I agree with the documented findings, disposition and treatment plan as described except to the extent set forth below.
[2017-10-18] MEDS: D5% in 0.45% NACL w KCl 20 MEQ/1,000 ML MLS IVC SCH (21:03)
[2017-10-18] MEDS ORDERED: Vancomycin 1,000 MG in D5% in Water 250 ML IVPB SCH (23:00)
[2017-10-19] MEDS: Ipratropium/Albuterol Neb 3 ML IH SCH ×4 (03:23→22:49)
[2017-10-19] MEDS: D5% in 0.45% NACL w KCl 20 MEQ/1,000 ML MLS IVC SCH ×2 (05:10→14:10)
[2017-10-19 05:38] LABS: Basophils # 0.1 K/mcL (0.0-0.2); Basophils % 0.5 %; Eosinophils # 0.2 K/mcL (0.0-0.6); Eosinophils % 1.5 %; Hematocrit 29.6 % (37.5-50.1); Hemoglobin 9.2 g/dL (12.9-16.9); Immature Granulocytes % 0.6 % (0-4); Lymphocytes # 1.1 K/mcL (0.6-4.6); Lymphocytes % 10.9 %; Mean Corpuscular HGB Conc 31.1 g/dL (31.6-35.5); Mean Corpuscular Hemoglobin 28.8 pg (28.0-33.3); Mean Corpuscular Volume 92.5 fL (83.0-100.0); Mean Platelet Volume 9.4 fL (9.4-12.4); Monocytes # 0.7 K/mcL (0.0-1.3); Monocytes % 6.8 %; Neutrophils # 7.8 K/mcL (1.6-8.9); Platelet Count 194 K/mcL (140-400); Red Cell Distribution Width 14.4 % (11.5-14.5); Segmented Neutrophils % 79.7 %
[2017-10-19] MEDS: *HR* Heparin 5,000 UNIT/ML VIAL SQ SCH ×2 (05:39→18:22)
[2017-10-19 06:07] LABS: BUN/Creatinine Ratio 14 (6-26); Blood Urea Nitrogen 16 mg/dL (8-23); Calcium 8.4 mg/dL (8.6-10.3); Carbon Dioxide 35 mEq/L (23-29); Chloride 99 mEq/L (98-107); Glucose 142 mg/dL (70-105); Osmolality,Calculated 292 (280-300); Potassium 2.6 mEq/L (3.5-5.1); Sodium 139 mEq/L (136-145); eGFR For African Americans > 60 (> 60); eGFR For Non-African Americans > 60 (> 60)
[2017-10-19] MEDS: Piperacillin/Tazobactam 3.375 GM/200 ML BAG IVPB SCH ×3 (09:51→23:29)
--- NOTE | 2017-10-19 11:06 | Pulmonology Progress Note ---
<Hawk Valverde - Last Filed: 10/19/17 13:40> Date of Encounter: 10/19/17 Time of Encounter: 09:45 Assessment and Plan (1) Pneumonia Current Visit: No Status: Acute Patient presented with cough and increasing shortness of breath. Likely aspiration; secondary to dysphasia due to CVA. CXR demonstrated the following: -R lung opacities, possible worsening PNA, aspiration, or asymmetric edema. -Increasing R pleural effusion. White count improving. Plan: -Vancomycin has been discontinued. -Zosyn 3.375 g IV Q8 -DuoNeb's -O2 via nasal cannula and BiPAP as needed. -Patient's CODE STATUS has been changed to DNR CCA. -Patient is okay with short-term intubation. Qualifiers: Pneumonia type: aspiration pneumonia Aspiration pneumonia type: due to regurgitated food Laterality: right Lung location: lower lobe of lung Qualified Code(s): J69.0 - Pneumonitis due to inhalation of food and vomit (2) Acute respiratory failure with hypoxia Current Visit: No Status: Acute Initially presented with shortness of breath; initial oxygen saturation was 89. Patient's initial carbon dioxide was 42. CO2 level was 35 today. Plan: -Treat underlying disease; oxygen support as needed. (3) Hypernatremia Current Visit: Yes Status: Acute Patient's sodium level was noted to be elevated at the [facility]. Resolved; last sodium level was 139. (4) Tachycardia Current Visit: Yes Status: Acute Patient initially presented with an elevated heart rate at 119 bpm. Current heart rate 108. Plan: -Lopressor 5 mg IV Q6H PRN. -Continue to monitor vital signs. (5) History of CVA (cerebrovascular accident) Current Visit: No Status: Acute Per palliative, patient is okay with a PEG tube as long as he is able to eat nectar fluids; is willing to sign a waiver stating that he is aware that it could go down the wrong tube. Per palliative, patient's CODE STATUS was changed to DNR CCA, but patient is okay with short-term intubation. Per GI, PEG tube insertion will be postponed pending family's approval. (6) DVT prophylaxis Current Visit: No Status: Acute Subjective Interval history: Patient was seen and examined events of this morning. No longer on BiPAP. Patient is currently awake; does not appear to be in distress at this time. Objective PUL Vital signs: Last Vital Signs Temp 99.8 F H 10/19/17 07:00 Pulse 106 10/19/17 10:00 Resp 20 10/19/17 10:37 BP 119/73 10/19/17 10:00 Pulse Ox 94 10/19/17 10:37 General appearance: no acute distress Eyes: nonicteric ENT: oropharynx dry Auscultation: bilateral: rales, rhonchi Cardiovascular: other (Tachycardic) Integumentary: normal Extremities: no cyanosis Results - Laboratory Findings CBC and BMP: 10/19/17 05:24 10/19/17 05:24 ABG ABG pH 7.44 pH Units (7.32-7.45) 10/17/17 14:20 ABG pCO2 67 mmHg (35-45) H 10/17/17 14:20 ABG pO2 65 mmHg (85-104) L 10/17/17 14:20 ABG O2 Saturation 92 % (95-98) L 10/17/17 14:20 PT/INR, D-dimer PT 18.4 Seconds (9.4-12.1) H 10/18/17 11:08 Abnormal lab findings: Abnormal lab results RBC 3.20 M/mcL (4.19-5.50) L 10/19/17 05:24 Hgb 9.2 g/dL (12.9-16.9) L 10/19/17 05:24 Hct 29.6 % (37.5-50.1) L 10/19/17 05:24 MCHC 31.1 g/dL (31.6-35.5) L 10/19/17 05:24 PT 18.4 Seconds (9.4-12.1) H 10/18/17 11:08 ABG pCO2 67 mmHg (35-45) H 10/17/17 14:20 ABG pO2 65 mmHg (85-104) L 10/17/17 14:20 ABG HCO3 46 mEq/L (21-27) H 10/17/17 14:20 ABG Total CO2 48 mEq/L (20-26) H 10/17/17 14:20 ABG O2 Saturation 92 % (95-98) L 10/17/17 14:20 ABG Base Excess 18 mEq/L (-2 to 3) H 10/17/17 14:20 Potassium 2.6 mEq/L (3.5-5.1) L 10/19/17 05:24 Carbon Dioxide 35 mEq/L (23-29) H 10/19/17 05:24 Glucose 142 mg/dL (70-105) H 10/19/17 05:24 POC Glucose 134 (58-89) H 10/19/17 05:39 Calcium 8.4 mg/dL (8.6-10.3) L 10/19/17 05:24 Serum Total Protein 5.9 g/dL (6.4-8.9) L 10/18/17 09:12 Albumin 2.6 g/dL (3.5-5.7) L 10/18/17 09:12 Albumin/Globulin Ratio 0.8 (1.1-2.2) L 10/18/17 09:12 Vancomycin Trough 21.9 mcg/mL (10-20) H* 10/18/17 09:12 - Microbiology Findings Microbiology Findings: Microbiology, Last 48 Hours 10/16/17 21:47 Blood Culture - Preliminary Peripheral Venipuncture No growth. 10/16/17 21:47 Blood Culture - Preliminary Peripheral Venipuncture No growth. - Clinical Findings Intake & Output: Intake & Output 10/18/17 10/19/17 10/19/17 23:59 07:59 15:59 Intake Total 700 / 700 1450 / 1450 100 / 100 Output Total 525 / 525 525 / 525 350 / 350 Balance 175 / 175 925 / 925 -250 / -250 Weight 87.725 kg Consult Discharge Plan - Plan [facility]errals: [facility] [Primary Care Provider] - <Chris Keenan - Last Filed: 10/19/17 21:29> Date of Encounter: 10/19/17 Objective PUL Vital signs: Last Vital Signs Temp 99.0 F 10/19/17 15:00 Pulse 98 10/19/17 18:00 Resp 20 10/19/17 18:00 BP 145/102 10/19/17 18:00 Pulse Ox 97 10/19/17 18:00 Results - Laboratory Findings CBC and BMP: 10/19/17 05:24 10/19/17 05:24 ABG ABG pH 7.44 pH Units (7.32-7.45) 10/17/17 14:20 ABG pCO2 67 mmHg (35-45) H 10/17/17 14:20 ABG pO2 65 mmHg (85-104) L 10/17/17 14:20 ABG O2 Saturation 92 % (95-98) L 10/17/17 14:20 PT/INR, D-dimer PT 18.4 Seconds (9.4-12.1) H 10/18/17 11:08 Abnormal lab findings: Abnormal lab results RBC 3.20 M/mcL (4.19-5.50) L 10/19/17 05:24 Hgb 9.2 g/dL (12.9-16.9) L 10/19/17 05:24 Hct 29.6 % (37.5-50.1) L 10/19/17 05:24 MCHC 31.1 g/dL (31.6-35.5) L 10/19/17 05:24 PT 18.4 Seconds (9.4-12.1) H 10/18/17 11:08 ABG pCO2 67 mmHg (35-45) H 10/17/17 14:20 ABG pO2 65 mmHg (85-104) L 10/17/17 14:20 ABG HCO3 46 mEq/L (21-27) H 10/17/17 14:20 ABG Total CO2 48 mEq/L (20-26) H 10/17/17 14:20 ABG O2 Saturation 92 % (95-98) L 10/17/17 14:20 ABG Base Excess 18 mEq/L (-2 to 3) H 10/17/17 14:20 Potassium 2.6 mEq/L (3.5-5.1) L 10/19/17 05:24 Carbon Dioxide 35 mEq/L (23-29) H 10/19/17 05:24 Glucose 142 mg/dL (70-105) H 10/19/17 05:24 Calcium 8.4 mg/dL (8.6-10.3) L 10/19/17 05:24 Serum Total Protein 5.9 g/dL (6.4-8.9) L 10/18/17 09:12 Albumin 2.6 g/dL (3.5-5.7) L 10/18/17 09:12 Albumin/Globulin Ratio 0.8 (1.1-2.2) L 10/18/17 09:12 Vancomycin Trough 21.9 mcg/mL (10-20) H* 10/18/17 09:12 - Microbiology Findings Microbiology Findings: Microbiology, Last 48 Hours 10/16/17 21:47 Blood Culture - Preliminary Peripheral Venipuncture No growth. 10/16/17 21:47 Blood Culture - Preliminary Peripheral Venipuncture No growth. - Clinical Findings Intake & Output: Intake & Output 10/19/17 10/19/17 10/19/17 07:59 15:59 23:59 Intake Total 1450 / 1450 1300 / 1300 100 / 100 Output Total 525 / 525 650 / 650 600 / 600 Balance 925 / 925 650 / 650 -500 / -500 Weight 87.725 kg - Attending Attestation I examined this patient and my medical decision-making was reviewed with the Resident Physician. I agree with the documented findings, disposition and treatment plan as described except to the extent set forth below. Patient seen and examined. Labs, radiology, chart personally reviewed. 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 Patient may end having PEG tube. Heme: DVT prophylaxis per routine ID: Continue antibiotics and plan to de-escalation Renal; urine out put and renal funtion reviewed. Decrease IVF and replace K. Endorcine: blood glucose is monitored Lines: all lines checked and no evidence of infections Skin: skin care to prevent pressure ulcers per nursing routine care I feel overall prognosis is poor. When bed available will transfer patient.
[2017-10-19] MEDS: Pantoprazole 40 MG in 0.9 % Sodium Chloride Mini Bag 100 ML IVC SCH ×3 (12:33→23:29)
--- NOTE | 2017-10-19 12:45 | Event Note ---
Date of Encounter: 10/19/17 Time of Encounter: 09:00 Pt awake in bed. He follows commands and shakes his head yes or no. VS are stable. He denies pain or needs. Spoke with BERNARD Menon [phone] via telephone. She was advised of the patients current condition and lab values. She was informed that the patient gave consent for PEG yesterday using letter/picture board but is physically unable to sign the consent. She remains reluctant to sign the consent. She wants to wait until she sees the patient in person on Monday. She is coming to visit with a friend who is a doctor and will make decision then. Risks and benefits explained and she verbalizes understanding. If she agrees will proceed with peg tube placement on Monday.
[2017-10-19] MEDS ORDERED: D5% in 0.45% NACL w KCl 20 MEQ/1,000 ML MLS IVC SCH (15:31)
[2017-10-19] MEDS: Potassium Chloride Elixir 20 MEQ/15 ML UDC GTUBE SCH (16:27)
[2017-10-20] MEDS: Ipratropium/Albuterol Neb 3 ML IH SCH ×4 (03:45→22:07)
[2017-10-20] MEDS: *HR* Heparin 5,000 UNIT/ML VIAL SQ SCH ×2 (05:51→18:14)
[2017-10-20 06:08] LABS: BUN/Creatinine Ratio 11 (6-26); Blood Urea Nitrogen 12 mg/dL (8-23); Carbon Dioxide 31 mEq/L (23-29); Chloride 106 mEq/L (98-107); Glucose 112 mg/dL (70-105); Osmolality,Calculated 301 (280-300); Potassium 2.8 mEq/L (3.5-5.1); Sodium 145 mEq/L (136-145); eGFR For African Americans > 60 (> 60); eGFR For Non-African Americans > 60 (> 60)
[2017-10-20] MEDS: Pantoprazole 40 MG in 0.9 % Sodium Chloride Mini Bag 100 ML IVC SCH ×2 (08:01→08:05)
[2017-10-20] MEDS: Potassium Chloride Elixir 20 MEQ/15 ML UDC GTUBE SCH (08:01)
[2017-10-20] MEDS: Piperacillin/Tazobactam 3.375 GM/200 ML BAG IVPB SCH ×2 (08:02→16:46)
--- NOTE | 2017-10-20 08:15 | Palliative Progress Note ---
Date of Encounter: 10/20/17 Time of Encounter: 07:20 - Assessment and plan (1) Aspiration pneumonia Current Visit: No Status: Acute Assessment and plan: Blood cultures thus far negative, flu swab negative. On antibiotics plan per intensive care team. He did thoroughly fail swallow eval this time. She continues to be nothing by mouth. Qualifiers: Aspiration pneumonia type: due to regurgitated food Laterality: right Lung location: unspecified part of lung Qualified Code(s): J69.0 - Pneumonitis due to inhalation of food and vomit (2) History of CVA (cerebrovascular accident) Current Visit: No Status: Acute Assessment and plan: Patient's swallowing ability does seem to be declining. He did pass a swallow eval last week, however yesterday he did not. (3) Dysphagia Current Visit: No Status: Acute Assessment and plan: This appears to be getting worse. Patient is being considered for PEG tube, however GI wishes to have the family see the patient talked to them and then have them sign for the G-tube. Qualifiers: Dysphagia type: oropharyngeal phase Qualified Code(s): R13.12 - Dysphagia, oropharyngeal phase (4) Goals of care, counseling/discussion Current Visit: No Status: Acute Assessment and plan: Goals of care discussion was undertaken on Monday this week. At that time the patient indicated change from last week DNR CCA, short-term intubation okay. At that time he also indicated to me with witnesses that he was okay with the G-tube but he is very concerned about being able to taste things. He was willing last week to consent for os swallow waiver. Ever since then his ability to swallow has markedly decreased. This has resulted in his being rehospitalized. At this point in time he seems more confused to me, he is far less able to communicate then he was 48 hours ago. At this point I do not know if he has the ability to consent to procedures. I was sure of this on Monday , I am much less sure now. Plan is for family to see the patient tomorrow and decide on tube and further therapy at that time. - Time Spent With Patient Total time spent is greater than 50% in coordination of care (as documented) at patient's floor/unit and/or counseling patient: - Subjective Interval history: Noted the patient thoroughly failed bedside swallow evaluation from both RN and speech therapy. This is in [place] contrast to last week when he actually passed. Patient is less able to communicate today. Although some of his words are more clear, he will not spell for me on his spell board. He also does not seem to have a good recollection of our discussion on Monday. - Constitutional Vitals: Abnormal lab results RBC 3.20 M/mcL (4.19-5.50) L 10/19/17 05:24 Hgb 9.2 g/dL (12.9-16.9) L 10/19/17 05:24 Hct 29.6 % (37.5-50.1) L 10/19/17 05:24 MCHC 31.1 g/dL (31.6-35.5) L 10/19/17 05:24 PT 18.4 Seconds (9.4-12.1) H 10/18/17 11:08 ABG pCO2 67 mmHg (35-45) H 10/17/17 14:20 ABG pO2 65 mmHg (85-104) L 10/17/17 14:20 ABG HCO3 46 mEq/L (21-27) H 10/17/17 14:20 ABG Total CO2 48 mEq/L (20-26) H 10/17/17 14:20 ABG O2 Saturation 92 % (95-98) L 10/17/17 14:20 ABG Base Excess 18 mEq/L (-2 to 3) H 10/17/17 14:20 Potassium 2.8 mEq/L (3.5-5.1) L 10/20/17 04:55 Carbon Dioxide 31 mEq/L (23-29) H 10/20/17 04:55 Glucose 112 mg/dL (70-105) H 10/20/17 04:55 POC Glucose 94 (58-89) H 10/20/17 00:26 Calculated Osmolality 301 (280-300) H 10/20/17 04:55 Serum Total Protein 5.9 g/dL (6.4-8.9) L 10/18/17 09:12 Albumin 2.6 g/dL (3.5-5.7) L 10/18/17 09:12 Albumin/Globulin Ratio 0.8 (1.1-2.2) L 10/18/17 09:12 Prealbumin 10.0 mg/dL (17.0-34.0) L 10/20/17 04:55 Vancomycin Trough 21.9 mcg/mL (10-20) H* 10/18/17 09:12 General appearance: Present: no acute distress - Head Head exam: Present: atraumatic, normal inspection - Eye Eye exam: Present: normal appearance - ENT ENT exam: Present: mucous membranes moist - Neck Neck exam: Present: normal inspection - Respiratory Respiratory exam: Present: decreased breath sounds - Cardiovascular Cardiovascular exam: Present: tachycardia - GI/Abdominal GI/Abdominal exam: Present: normal bowel sounds, soft. Absent: tenderness - Extremities Exam Extremities exam: Absent: tenderness - Neurological Exam Neurological exam: Present: altered (Much more difficult to communicate with today then 2 days ago.) - Psychiatric Psychiatric exam: Absent: agitated, anxious - Skin Skin exam: Present: dry, warm Palliative Quality Palliative Quality: Screen for Code Status: Yes, Screen for Goals of Care: Yes, Screen for Pain: Yes, If Pain Regimen Started, Initiate Bowel Regimen: Yes, Screen for Nausea/Vomitting: Yes Code Status: 10/16/17 21:16 Resuscitation Status: Active [RES] Routine Comment: Resuscitation Status: Full Code Resuscitation Status: Active [RES] Routine Comment: short term intubation is ok Resuscitation Status: DNR-Comfort Care-Arrest - Labs CBC & Chem 7: 10/19/17 05:24 10/20/17 04:55 Labs: Laboratory Results - last 24 hr 10/19/17 10/19/17 10/20/17 11:00 18:38 00:26 Sodium Potassium Chloride Carbon Dioxide BUN Creatinine Est GFR ( Amer) Est GFR (Non-Af Amer) BUN/Creatinine Ratio Glucose POC Glucose 96 H 88 94 H Calculated Osmolality Calcium Prealbumin 10/20/17 10/20/17 04:55 04:55 Sodium 145 Potassium 2.8 L Chloride 106 Carbon Dioxide 31 H BUN 12 Creatinine 1.11 Est GFR ( Amer) > 60 Est GFR (Non-Af Amer) > 60 BUN/Creatinine Ratio 11 Glucose 112 H POC Glucose Calculated Osmolality 301 H Calcium 9.0 Prealbumin 10.0 L - ABG Interpretation ABG results: ABG ABG pH 7.44 pH Units (7.32-7.45) 10/17/17 14:20 ABG pCO2 67 mmHg (35-45) H 10/17/17 14:20 ABG pO2 65 mmHg (85-104) L 10/17/17 14:20 ABG O2 Saturation 92 % (95-98) L 10/17/17 14:20 PT/INR, D-dimer PT 18.4 Seconds (9.4-12.1) H 10/18/17 11:08 Consult Discharge Plan - Plan [facility]errals: [facility] [Primary Care Provider] -
--- NOTE | 2017-10-20 09:37 | Pulmonology Progress Note ---
<Hawk Valverde - Last Filed: 10/20/17 10:23> Date of Encounter: 10/20/17 Time of Encounter: 09:30 Assessment and Plan (1) Pneumonia Current Visit: No Status: Acute Patient presented with cough and increasing shortness of breath. Likely aspiration; secondary to dysphasia due to CVA. CXR demonstrated the following: -R lung opacities, possible worsening PNA, aspiration, or asymmetric edema. -Increasing R pleural effusion. White count improving. Plan: -Zosyn 3.375 g IV Q8 -DuoNeb's -Condition appears to be improving; will be transferred out of ICU. Qualifiers: Pneumonia type: aspiration pneumonia Aspiration pneumonia type: due to regurgitated food Laterality: right Lung location: lower lobe of lung Qualified Code(s): J69.0 - Pneumonitis due to inhalation of food and vomit (2) Acute respiratory failure with hypoxia Current Visit: No Status: Acute Initially presented with shortness of breath; initial oxygen saturation was 89. Patient's initial carbon dioxide was 42. Plan: -Treat underlying disease; oxygen support as needed. (3) Hypernatremia Current Visit: Yes Status: Acute Patient's sodium level was noted to be elevated at the [place]. Resolved. (4) Tachycardia Current Visit: Yes Status: Acute Patient initially presented with an elevated heart rate at 119 bpm. Current heart rate 115. Plan: -Lopressor 5 mg IV Q6H PRN. -Continue to monitor vital signs. (5) History of CVA (cerebrovascular accident) Current Visit: No Status: Acute Per palliative, patient is okay with a PEG tube as long as he is able to eat nectar fluids; is willing to sign a waiver stating that he is aware that it could go down the wrong tube. Per palliative, patient's CODE STATUS was changed to DNR CCA, but patient is okay with short-term intubation. Per GI, PEG tube insertion will be postponed pending family's approval. (6) DVT prophylaxis Current Visit: No Status: Acute Subjective Interval history: Patient was seen and examined events of this morning. No longer on BiPAP. Still unable to verbalize. Patient is currently awake; does not appear to be in distress at this time. Objective PUL Vital signs: Last Vital Signs Temp 99.5 F 10/20/17 07:00 Pulse 115 10/20/17 08:00 Resp 12 01/19/18 08:00 BP 158/92 10/20/17 08:00 Pulse Ox 93 10/20/17 08:00 General appearance: no acute distress Eyes: nonicteric ENT: oropharynx dry Neck: supple Effort: mildly labored Auscultation: bilateral: wheezes, rales, rhonchi Cardiovascular: other (Patient is tachycardic at 115 bpm.) Integumentary: normal Extremities: no cyanosis Results - Laboratory Findings CBC and BMP: 10/19/17 05:24 10/20/17 04:55 ABG ABG pH 7.44 pH Units (7.32-7.45) 10/17/17 14:20 ABG pCO2 67 mmHg (35-45) H 10/17/17 14:20 ABG pO2 65 mmHg (85-104) L 10/17/17 14:20 ABG O2 Saturation 92 % (95-98) L 10/17/17 14:20 PT/INR, D-dimer PT 18.4 Seconds (9.4-12.1) H 10/18/17 11:08 Abnormal lab findings: Abnormal lab results RBC 3.20 M/mcL (4.19-5.50) L 10/19/17 05:24 Hgb 9.2 g/dL (12.9-16.9) L 10/19/17 05:24 Hct 29.6 % (37.5-50.1) L 10/19/17 05:24 MCHC 31.1 g/dL (31.6-35.5) L 10/19/17 05:24 PT 18.4 Seconds (9.4-12.1) H 10/18/17 11:08 ABG pCO2 67 mmHg (35-45) H 10/17/17 14:20 ABG pO2 65 mmHg (85-104) L 10/17/17 14:20 ABG HCO3 46 mEq/L (21-27) H 10/17/17 14:20 ABG Total CO2 48 mEq/L (20-26) H 10/17/17 14:20 ABG O2 Saturation 92 % (95-98) L 10/17/17 14:20 ABG Base Excess 18 mEq/L (-2 to 3) H 10/17/17 14:20 Potassium 2.8 mEq/L (3.5-5.1) L 10/20/17 04:55 Carbon Dioxide 31 mEq/L (23-29) H 10/20/17 04:55 Glucose 112 mg/dL (70-105) H 10/20/17 04:55 POC Glucose 94 (58-89) H 10/20/17 00:26 Calculated Osmolality 301 (280-300) H 10/20/17 04:55 Serum Total Protein 5.9 g/dL (6.4-8.9) L 10/18/17 09:12 Albumin 2.6 g/dL (3.5-5.7) L 10/18/17 09:12 Albumin/Globulin Ratio 0.8 (1.1-2.2) L 10/18/17 09:12 Prealbumin 10.0 mg/dL (17.0-34.0) L 10/20/17 04:55 Vancomycin Trough 21.9 mcg/mL (10-20) H* 10/18/17 09:12 - Microbiology Findings Microbiology Findings: Microbiology, Last 48 Hours 10/16/17 21:47 Blood Culture - Preliminary Peripheral Venipuncture No growth. 10/16/17 21:47 Blood Culture - Preliminary Peripheral Venipuncture No growth. - Clinical Findings Intake & Output: Intake & Output 10/19/17 10/20/17 10/20/17 23:59 07:59 15:59 Intake Total 1400 / 1400 200 / 200 100 / 100 Output Total 1000 / 1000 2175 / 2175 Balance 400 / 400 -1974 / -1974 100 / 100 Weight 87.725 kg Consult Discharge Plan - Plan [facility]errals: [facility] [Primary Care Provider] - <Chris Keenan - Last Filed: 10/20/17 14:14> Date of Encounter: 10/20/17 Objective PUL Vital signs: Last Vital Signs Temp 98.6 F 10/20/17 11:38 Pulse 109 10/20/17 11:38 Resp 12 10/20/17 11:38 BP 144/95 10/20/17 11:38 Pulse Ox 93 10/20/17 11:38 Results - Laboratory Findings CBC and BMP: 10/19/17 05:24 10/20/17 04:55 ABG ABG pH 7.44 pH Units (7.32-7.45) 10/17/17 14:20 ABG pCO2 67 mmHg (35-45) H 10/17/17 14:20 ABG pO2 65 mmHg (85-104) L 10/17/17 14:20 ABG O2 Saturation 92 % (95-98) L 10/17/17 14:20 PT/INR, D-dimer PT 18.4 Seconds (9.4-12.1) H 10/18/17 11:08 Abnormal lab findings: Abnormal lab results RBC 3.20 M/mcL (4.19-5.50) L 10/19/17 05:24 Hgb 9.2 g/dL (12.9-16.9) L 10/19/17 05:24 Hct 29.6 % (37.5-50.1) L 10/19/17 05:24 MCHC 31.1 g/dL (31.6-35.5) L 10/19/17 05:24 PT 18.4 Seconds (9.4-12.1) H 10/18/17 11:08 ABG pCO2 67 mmHg (35-45) H 10/17/17 14:20 ABG pO2 65 mmHg (85-104) L 10/17/17 14:20 ABG HCO3 46 mEq/L (21-27) H 10/17/17 14:20 ABG Total CO2 48 mEq/L (20-26) H 10/17/17 14:20 ABG O2 Saturation 92 % (95-98) L 10/17/17 14:20 ABG Base Excess 18 mEq/L (-2 to 3) H 10/17/17 14:20 Potassium 2.8 mEq/L (3.5-5.1) L 10/20/17 04:55 Carbon Dioxide 31 mEq/L (23-29) H 10/20/17 04:55 Glucose 112 mg/dL (70-105) H 10/20/17 04:55 POC Glucose 90 (58-89) H 10/20/17 11:31 Calculated Osmolality 301 (280-300) H 10/20/17 04:55 Serum Total Protein 5.9 g/dL (6.4-8.9) L 10/18/17 09:12 Albumin 2.6 g/dL (3.5-5.7) L 10/18/17 09:12 Albumin/Globulin Ratio 0.8 (1.1-2.2) L 10/18/17 09:12 Prealbumin 10.0 mg/dL (17.0-34.0) L 10/20/17 04:55 Vancomycin Trough 21.9 mcg/mL (10-20) H* 10/18/17 09:12 - Clinical Findings Intake & Output: Intake & Output 10/19/17 10/20/17 10/20/17 23:59 07:59 15:59 Intake Total 1400 / 1400 200 / 200 900 / 900 Output Total 1000 / 1000 2175 / 2175 Balance 400 / 400 -1974 900 / 900 Weight 87.725 kg - Attending Attestation I examined this patient and my medical decision-making was reviewed with the Resident Physician. I agree with the documented findings, disposition and treatment plan as described except to the extent set forth below. Patient seen and examined. Labs, radiology, chart personally reviewed. 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 BiPAP on and off Cardiovascular: stable GI: Nutrition per dietary and GI prophylaxis per routine. This is every a problem since family is not available to discuss this issue and patient will be on IV fluid for hydration Heme: DVT prophylaxis per routine ID: Continue antibiotics and plan to de-escalation Renal; urine out put and renal funtion reviewed Endorcine: blood glucose is monitored Lines: all lines checked and no evidence of infections Skin: skin care to prevent pressure ulcers per nursing routine care Patient hemodynamically stable to be transferred to the floor
[2017-10-20] MEDS ORDERED: Ipratropium/Albuterol Neb 3 ML IH PRN (10:22)
[2017-10-20] MEDS ORDERED: Ondansetron 4 MG/2 ML VIAL IVP PRN (10:22)
[2017-10-20] MEDS ORDERED: Acetaminophen 650 MG RECTAL SUPP RC PRN (10:22)
[2017-10-20] MEDS ORDERED: Naloxone 0.4 MG/ML INJ IVP PRN (10:22)
[2017-10-20] MEDS ORDERED: Saline Nasal Spray 44 ML BOTTLE NS PRN (10:22)
[2017-10-20] MEDS: D5% in 0.45% NACL w KCl 20 MEQ/1,000 ML MLS IVC SCH (18:13)
[2017-10-21] MEDS: Piperacillin/Tazobactam 3.375 GM/200 ML BAG IVPB SCH ×3 (00:23→19:00)
[2017-10-21] MEDS: Ipratropium/Albuterol Neb 3 ML IH SCH ×4 (03:55→22:50)
[2017-10-21] MEDS: D5% in 0.45% NACL w KCl 20 MEQ/1,000 ML MLS IVC SCH ×3 (04:29→16:20)
[2017-10-21] MEDS: *HR* Heparin 5,000 UNIT/ML VIAL SQ SCH ×2 (04:30→16:19)
[2017-10-21] MEDS ORDERED: Pantoprazole 40 MG VIAL IVP SCH (07:30)
[2017-10-21] MEDS ORDERED: Potassium Chloride Elixir 20 MEQ/15 ML UDC GTUBE SCH (09:00)
[2017-10-21] MEDS: Pantoprazole 40 MG VIAL IVP SCH (09:27)
--- NOTE | 2017-10-21 09:30 | Internal Med Progress Note ---
Date of Encounter: 10/21/17 Time of Encounter: 09:27 - Assessment and plan (1) Aspiration pneumonia Current Visit: No Status: Acute Assessment and plan: Continue Zosyn. Patient has been previously on Vanco and Flagyl as well. Also been stopped. Cultures remained negative. Continue to wean off oxygen as tolerated. Continue nebs Qualifiers: Aspiration pneumonia type: due to regurgitated food Laterality: right Lung location: unspecified part of lung Qualified Code(s): J69.0 - Pneumonitis due to inhalation of food and vomit (2) Acute respiratory failure with hypoxia Current Visit: No Status: Acute Assessment and plan: Likely secondary to aspiration pneumonia. We will repeat a chest x-ray. Treat pneumonia as above. (3) Dysphagia Current Visit: No Status: Acute Assessment and plan: She has follow-up for possible PEG. A discussion is to be had later today with family and palliative. Continue with aspiration precautions. I am not sure if a PEG tube would be able be placed this weekend. In the meantime I will talk to the family regarding possible placement NG tube to start feeding. The patient seems to be motivated enough to tell me that he is okay with it. Qualifiers: Dysphagia type: oropharyngeal phase Qualified Code(s): R13.12 - Dysphagia, oropharyngeal phase (4) Hypernatremia Current Visit: Yes Status: Acute Assessment and plan: Resolved. Repeat labs this morning. (5) ANTHONY (acute kidney injury) Current Visit: Yes Status: Acute Assessment and plan: Improving. We will check labs this morning. I do not see labs for the last couple days. We may have to hydrate the patient more. He is not on any IV fluids. We will add IV fluids if his creatinine is worse. Avoid nephrotoxins. (6) History of CVA (cerebrovascular accident) Current Visit: No Status: Acute Assessment and plan: Resume statin the G-tube. Unsure why patient is not on antiplatelet therapy. We will have to discuss with family. (7) DVT prophylaxis Current Visit: No Status: Acute Assessment and plan: Heparin subcutaneous (8) Goals of care, counseling/discussion Current Visit: No Status: Acute Assessment and plan: Palliative is following. Plans for discussion regarding PEG tube placement. I thing in the meantime I can at least place an NG tube to start feeding up until a PEG tube was placed. We will talk to family regarding that. - Subjective Interval history: Patient seen and examined. No acute events overnight. The patient is difficult to understand given his speech difficulties from previous strokes. 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 He also has a component of dysphagia cause an aspiration pneumonia. Palliative has been on board and discussing goals of care and possibility of a PEG placement which has not been done yet. Per nursing staff the patient has been on tube feedings. There has been no issues. Family is to come and have a discussion with palliative today. - Constitutional Vitals: Temp Pulse Resp BP Pulse Ox 98.3 F 94 16 144/92 98 10/21/17 07:45 10/21/17 07:45 10/21/17 07:45 10/21/17 07:45 10/21/17 07:45 General appearance: Present: A&O X 2, no acute distress, answers questions appropriately Exam: GEN: NAD CVS: RRR. S1, S2, No m/r/g RESP: Diminished. Bilateral rales and rhonchi. ABD: Soft, NT, ND, +BS EXT: No edema. 2+ DP, No rashes NEURO: Nonfocal Internal Medicine: Result - Labs CBC & Chem 7: 10/19/17 05:24 10/20/17 16:11 Labs: BMP 10/20/17 16:11 Potassium 3.5 - ABG Interpretation ABG results: ABG ABG pH 7.44 pH Units (7.32-7.45) 10/17/17 14:20 ABG pCO2 67 mmHg (35-45) H 10/17/17 14:20 ABG pO2 65 mmHg (85-104) L 10/17/17 14:20 ABG O2 Saturation 92 % (95-98) L 10/17/17 14:20 PT/INR, D-dimer PT 18.4 Seconds (9.4-12.1) H 10/18/17 11:08 Consult Discharge Plan - Plan [facility]errals: [facility] [Primary Care Provider] -
[2017-10-21 09:54] LABS: Basophils % 0.5 %; Eosinophils # 0.1 K/mcL (0.0-0.6); Hematocrit 33.1 % (37.5-50.1); Hemoglobin 9.9 g/dL (12.9-16.9); Immature Granulocytes % 0.5 % (0-4); Lymphocytes # 0.9 K/mcL (0.6-4.6); Lymphocytes % 10.7 %; Mean Corpuscular HGB Conc 29.9 g/dL (31.6-35.5); Mean Corpuscular Hemoglobin 28.8 pg (28.0-33.3); Mean Corpuscular Volume 96.2 fL (83.0-100.0); Mean Platelet Volume 9.1 fL (9.4-12.4); Monocytes # 0.6 K/mcL (0.0-1.3); Monocytes % 6.3 %; Neutrophils # 7.1 K/mcL (1.6-8.9); Platelet Count 310 K/mcL (140-400); Red Blood Count 3.44 M/mcL (4.19-5.50); Red Cell Distribution Width 14.6 % (11.5-14.5)
[2017-10-21 10:13] LABS: BUN/Creatinine Ratio 10 (6-26); Blood Urea Nitrogen 10 mg/dL (8-23); Carbon Dioxide 31 mEq/L (23-29); Chloride 109 mEq/L (98-107); Glucose 123 mg/dL (70-105); Osmolality,Calculated 302 (280-300); Potassium 3.4 mEq/L (3.5-5.1); Sodium 146 mEq/L (136-145); eGFR For African Americans > 60 (> 60); eGFR For Non-African Americans > 60 (> 60)
[2017-10-21] MEDS: *HR* Metoprolol 5 MG/5 ML VIAL IVP PRN (16:16)
[2017-10-21] MEDS: Gabapentin 400 MG CAPSULE PO SCH ×2 (16:19→22:56)
[2017-10-21] MEDS: risperiDONE 1 MG TABLET PO SCH (22:56)
[2017-10-21] MEDS: Divalproex (24 HR) 500 MG TABLET PO SCH (22:56)
[2017-10-22] MEDS: Piperacillin/Tazobactam 3.375 GM/200 ML BAG IVPB SCH ×3 (02:26→16:05)
[2017-10-22] MEDS: Ipratropium/Albuterol Neb 3 ML IH SCH ×4 (04:00→21:22)
[2017-10-22] MEDS: D5% in 0.45% NACL w KCl 20 MEQ/1,000 ML MLS IVC SCH ×2 (05:00→16:05)
[2017-10-22] MEDS: *HR* Heparin 5,000 UNIT/ML VIAL SQ SCH ×2 (05:06→18:51)
[2017-10-22] MEDS: Pantoprazole 40 MG VIAL IVP SCH (08:04)
[2017-10-22] MEDS: Gabapentin 400 MG CAPSULE PO SCH ×3 (08:06→21:46)
--- NOTE | 2017-10-22 08:34 | Palliative Progress Note ---
Date of Encounter: 10/22/17 Time of Encounter: 07:30 - Assessment and plan (1) Aspiration pneumonia Current Visit: No Status: Acute Assessment and plan: Blood cultures thus far negative, flu swab negative. On antibiotics plan per intensive care team. White blood cell count has normalized. Qualifiers: Aspiration pneumonia type: due to regurgitated food Laterality: right Lung location: unspecified part of lung Qualified Code(s): J69.0 - Pneumonitis due to inhalation of food and vomit (2) History of CVA (cerebrovascular accident) Current Visit: No Status: Acute Assessment and plan: Patient's swallowing ability does seem to be declining. The patient did fail a swallow evaluation in the last few days. (3) Dysphagia Current Visit: No Status: Acute Assessment and plan: This appears to be getting worse. Patient is being considered for PEG tube, however GI wishes to have the family see the patient talked to them and then have them sign for the G-tube. Hospitalist team attempted to place an NG tube, however the patient would not tolerate it. The best of my ability I believe the patient understands about a G -tube. It is very difficult to understand him and therefore I cannot be absolutely certain. However I do believe that his best opportunity here is for a G-tube which he has agreed to. He pulls it out I would not replace it. However my understanding from the hospitalist is the family has agreed from my standpoint the patient agreed last week and then agreed again today. May or may not tolerate it, however I do believe he deserves the opportunity. He obviously cannot sign for himself however I do believe he can give consent with witnesses. This will be up to the doing the procedure. Qualifiers: Dysphagia type: oropharyngeal phase Qualified Code(s): R13.12 - Dysphagia, oropharyngeal phase (4) Goals of care, counseling/discussion Current Visit: No Status: Acute Assessment and plan: Goals of care discussion was undertaken on Monday this week. At that time the patient indicated change from last week DNR CCA, short-term intubation okay. At that time he also indicated to me with witnesses that he was okay with the G-tube but he is very concerned about being able to taste things. He was willing week before last week to consent for a swallow waiver. Today the patient is able to reconfirm for me that he is okay with the PEG tube. Even that he did not tolerate the NG tube I am not sure how this will go , however I do believe that it is appropriate to try. I understand from the hospitalist the family was in favor this as well. I did not discuss this directly with the family and I believe that since there are questions with regards to consent this will be did not need to be undertaken by the team doing the procedure. - Time Spent With Patient Total time spent is greater than 50% in coordination of care (as documented) at patient's floor/unit and/or counseling patient: - Subjective Interval history: The patient is a wake and alert this morning. Able to point to a board. Is able to express to me that he wanted me to know that he had x-rays in a [facility] which there was. Complaints of this morning and able to reconfirm for me that he is okay with the PEG tube.. - Constitutional Vitals: Abnormal lab results RBC 3.44 M/mcL (4.19-5.50) L 10/21/17 09:34 Hgb 9.9 g/dL (12.9-16.9) L 10/21/17 09:34 Hct 33.1 % (37.5-50.1) L 10/21/17 09:34 MCHC 29.9 g/dL (31.6-35.5) L 10/21/17 09:34 RDW 14.6 % (11.5-14.5) H 10/21/17 09:34 MPV 9.1 fL (9.4-12.4) L 10/21/17 09:34 PT 18.4 Seconds (9.4-12.1) H 10/18/17 11:08 ABG pCO2 67 mmHg (35-45) H 10/17/17 14:20 ABG pO2 65 mmHg (85-104) L 10/17/17 14:20 ABG HCO3 46 mEq/L (21-27) H 10/17/17 14:20 ABG Total CO2 48 mEq/L (20-26) H 10/17/17 14:20 ABG O2 Saturation 92 % (95-98) L 10/17/17 14:20 ABG Base Excess 18 mEq/L (-2 to 3) H 10/17/17 14:20 Sodium 146 mEq/L (136-145) H 10/21/17 09:34 Potassium 3.4 mEq/L (3.5-5.1) L 10/21/17 09:34 Chloride 109 mEq/L (98-107) H 10/21/17 09:34 Carbon Dioxide 31 mEq/L (23-29) H 10/21/17 09:34 Glucose 123 mg/dL (70-105) H 10/21/17 09:34 POC Glucose 111 (58-89) H 10/21/17 13:13 Calculated Osmolality 302 (280-300) H 10/21/17 09:34 Serum Total Protein 5.9 g/dL (6.4-8.9) L 10/18/17 09:12 Albumin 2.6 g/dL (3.5-5.7) L 10/18/17 09:12 Albumin/Globulin Ratio 0.8 (1.1-2.2) L 10/18/17 09:12 Prealbumin 10.0 mg/dL (17.0-34.0) L 10/20/17 04:55 Vancomycin Trough 21.9 mcg/mL (10-20) H* 10/18/17 09:12 General appearance: Present: no acute distress - Head Head exam: Present: atraumatic, normal inspection - Eye Eye exam: Present: normal appearance - ENT ENT exam: Present: mucous membranes moist - Respiratory Respiratory exam: Present: decreased breath sounds - Cardiovascular Cardiovascular exam: Present: tachycardia - GI/Abdominal GI/Abdominal exam: Present: soft. Absent: tenderness - Extremities Exam Extremities exam: Absent: tenderness - Neurological Exam Neurological exam: Present: alert - Psychiatric Psychiatric exam: Absent: agitated, anxious - Skin Skin exam: Present: dry, warm Palliative Quality Palliative Quality: Screen for Code Status: Yes, Screen for Goals of Care: Yes, Screen for Pain: Yes, If Pain Regimen Started, Initiate Bowel Regimen: Yes, Screen for Nausea/Vomitting: Yes Code Status: 10/16/17 21:16 Resuscitation Status: Active [RES] Routine Comment: Resuscitation Status: Full Code Resuscitation Status: Active [RES] Routine Comment: short term intubation is ok Resuscitation Status: DNR-Comfort Care-Arrest - Labs CBC & Chem 7: 10/21/17 09:34 10/21/17 09:34 Labs: Laboratory Results - last 24 hr 10/21/17 10/21/17 10/21/17 09:34 09:34 09:34 WBC 8.8 RBC 3.44 L Hgb 9.9 L Hct 33.1 L MCV 96.2 MCH 28.8 MCHC 29.9 L RDW 14.6 H Plt Count 310 D MPV 9.1 L Immature Gran % 0.5 Seg Neutrophils % 81.0 Lymphocytes % 10.7 Monocytes % 6.3 Eosinophils % 1.0 Basophils % 0.5 Neutrophils # 7.1 Lymphocytes # 0.9 Monocytes # 0.6 Eosinophils # 0.1 Basophils # 0.0 Sodium 146 H Potassium 3.4 L Chloride 109 H Carbon Dioxide 31 H BUN 10 Creatinine 1.05 Est GFR ( Amer) > 60 Est GFR (Non-Af Amer) > 60 BUN/Creatinine Ratio 10 Glucose 123 H POC Glucose Calculated Osmolality 302 H Calcium 9.0 Magnesium 2.1 10/21/17 13:13 WBC RBC Hgb Hct MCV MCH MCHC RDW Plt Count MPV Immature Gran % Seg Neutrophils % Lymphocytes % Monocytes % Eosinophils % Basophils % Neutrophils # Lymphocytes # Monocytes # Eosinophils # Basophils # Sodium Potassium Chloride Carbon Dioxide BUN Creatinine Est GFR ( Amer) Est GFR (Non-Af Amer) BUN/Creatinine Ratio Glucose POC Glucose 111 H Calculated Osmolality Calcium Magnesium - Impressions Impressions Chest X-Ray 10/21/17 09:26 IMPRESSION: Stable chest, demonstrating multifocal right-sided airspace disease and small right pleural effusion. D/ / 10/21/2017 10:20:34 Sina Waters MD / Kat Gannon Interpreting Provider: Sina Waters MD - ABG Interpretation ABG results: ABG ABG pH 7.44 pH Units (7.32-7.45) 10/17/17 14:20 ABG pCO2 67 mmHg (35-45) H 10/17/17 14:20 ABG pO2 65 mmHg (85-104) L 10/17/17 14:20 ABG O2 Saturation 92 % (95-98) L 10/17/17 14:20 PT/INR, D-dimer PT 18.4 Seconds (9.4-12.1) H 10/18/17 11:08 Consult Discharge Plan - Plan [facility]errals: [facility] [Primary Care Provider] -
[2017-10-22 09:53] LABS: BUN/Creatinine Ratio 10 (6-26); Blood Urea Nitrogen 10 mg/dL (8-23); Carbon Dioxide 28 mEq/L (23-29); Chloride 112 mEq/L (98-107); Glucose 120 mg/dL (70-105); Osmolality,Calculated 304 (280-300); Potassium 3.3 mEq/L (3.5-5.1); Sodium 147 mEq/L (136-145); eGFR For African Americans > 60 (> 60); eGFR For Non-African Americans > 60 (> 60)
[2017-10-22 09:56] LABS: Basophils # 0.1 K/mcL (0.0-0.2); Basophils % 0.5 %; Eosinophils # 0.1 K/mcL (0.0-0.6); Eosinophils % 0.7 %; Hematocrit 34.5 % (37.5-50.1); Hemoglobin 10.7 g/dL (12.9-16.9); Immature Granulocytes % 0.4 % (0-4); Lymphocytes # 0.9 K/mcL (0.6-4.6); Lymphocytes % 7.2 %; Mean Corpuscular Hemoglobin 29.2 pg (28.0-33.3); Mean Platelet Volume 9.2 fL (9.4-12.4); Monocytes # 0.7 K/mcL (0.0-1.3); Monocytes % 5.9 %; Neutrophils # 10.5 K/mcL (1.6-8.9); Platelet Count 377 K/mcL (140-400); Red Blood Count 3.67 M/mcL (4.19-5.50); Red Cell Distribution Width 14.7 % (11.5-14.5); Segmented Neutrophils % 85.3 %
[2017-10-22] MEDS ORDERED: Potassium Chloride 40 MEQ, Lidocaine 1% 2 ML in D5% in Water 500 ML IVPB ONE (11:48)
--- NOTE | 2017-10-22 11:52 | Internal Med Progress Note ---
Date of Encounter: 10/22/17 Time of Encounter: 11:50 - Assessment and plan (1) Aspiration pneumonia Current Visit: No Status: Acute Assessment and plan: Continue Zosyn. I see his white count has went up this morning. He has been afebrile. He is tachycardic however. I suspect his tachycardia is possibly from dehydration. Continue to monitor. Patient has been previously on Vanco and Flagyl as well which has been stopped. Cultures remained negative. Continue to wean off oxygen as tolerated. Continue nebs Qualifiers: Aspiration pneumonia type: due to regurgitated food Laterality: right Lung location: unspecified part of lung Qualified Code(s): J69.0 - Pneumonitis due to inhalation of food and vomit (2) Acute respiratory failure with hypoxia Current Visit: No Status: Acute Assessment and plan: Likely secondary to aspiration pneumonia. Repeat chest x-ray showed similar findings to previously. Treat pneumonia as above. (3) Dysphagia Current Visit: No Status: Acute Assessment and plan: We will plan on a PICC tomorrow. An attempt at NG tube has failed yesterday. Continue with aspiration precautions. I am not sure if a PEG tube would be able be placed this weekend. Qualifiers: Dysphagia type: oropharyngeal phase Qualified Code(s): R13.12 - Dysphagia, oropharyngeal phase (4) Hypernatremia Current Visit: Yes Status: Acute Assessment and plan: Sodium is slowly rising up. It was 146 yesterday and is 147 today. No changes to fluid today. Repeat labs this morning. (5) ANTHONY (acute kidney injury) Current Visit: Yes Status: Acute Assessment and plan: Improving. We will check labs this morning. Avoid nephrotoxins. (6) History of CVA (cerebrovascular accident) Current Visit: No Status: Acute Assessment and plan: Resume statin when PEG tubes placed. No antiplatelet therapy secondary to previously have been hemorrhagic stroke. He does have left sided paralysis. (7) DVT prophylaxis Current Visit: No Status: Acute Assessment and plan: Heparin subcutaneous (8) Goals of care, counseling/discussion Current Visit: No Status: Acute Assessment and plan: Palliative is following. PEG is planned for tomorrow. - Subjective Interval history: Patient seen and examined. No acute events overnight. The patient is difficult to understand given his speech difficulties from previous strokes. 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 He also has a component of dysphagia causing an aspiration pneumonia. An attempt at an NG tube was done yesterday however no NG tube was able to be placed as the patient resisted. Been afebrile - Constitutional Vitals: Temp Pulse Resp BP Pulse Ox 97.8 F 114 18 150/82 94 10/22/17 11:26 10/22/17 11:26 10/22/17 11:26 10/22/17 11:26 10/22/17 11:26 General appearance: Present: A&O X 2, no acute distress, answers questions appropriately Exam: GEN: NAD CVS: RRR. S1, S2, No m/r/g RESP: Diminished. Bilateral rales and rhonchi. ABD: Soft, NT, ND, +BS EXT: No edema. 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 Internal Medicine: Result - Labs CBC & Chem 7: 10/22/17 09:32 10/22/17 09:32 Labs: Short CBC 10/22/17 Range/Units 09:32 WBC 12.3 H (4.3-11.1) K/mcL Hgb 10.7 L (12.9-16.9) g/dL Hct 34.5 L (37.5-50.1) % Plt Count 377 (140-400) K/mcL Neutrophils # 10.5 H (1.6-8.9) K/mcL BMP 10/22/17 09:32 Sodium 147 H Potassium 3.3 L Chloride 112 H Carbon Dioxide 28 BUN 10 Creatinine 1.03 Glucose 120 H Calcium 9.0 - ABG Interpretation ABG results: ABG ABG pH 7.44 pH Units (7.32-7.45) 10/17/17 14:20 ABG pCO2 67 mmHg (35-45) H 10/17/17 14:20 ABG pO2 65 mmHg (85-104) L 10/17/17 14:20 ABG O2 Saturation 92 % (95-98) L 10/17/17 14:20 PT/INR, D-dimer PT 18.4 Seconds (9.4-12.1) H 10/18/17 11:08 - Impressions Impressions Chest X-Ray 10/21/17 09:26 IMPRESSION: Stable chest, demonstrating multifocal right-sided airspace disease and small right pleural effusion. D/ / 10/21/2017 10:20:34 Sina Waters MD / Kat Gannon Interpreting Provider: Sina Waters MD Consult Discharge Plan - Plan [facility]errals: [facility] [Primary Care Provider] -
[2017-10-22] MEDS: *HR* Metoprolol 5 MG/5 ML VIAL IVP PRN (12:05)
[2017-10-22] MEDS: Divalproex (24 HR) 500 MG TABLET PO SCH (21:46)
[2017-10-22] MEDS: risperiDONE 1 MG TABLET PO SCH (21:46)
[2017-10-23] MEDS: D5% in 0.45% NACL w KCl 20 MEQ/1,000 ML MLS IVC SCH ×2 (03:01→08:20)
[2017-10-23] MEDS: Piperacillin/Tazobactam 3.375 GM/200 ML BAG IVPB SCH ×3 (03:02→15:21)
[2017-10-23] MEDS: Ipratropium/Albuterol Neb 3 ML IH SCH ×4 (03:08→22:06)
[2017-10-23 05:01] LABS: Basophils # 0.1 K/mcL (0.0-0.2); Basophils % 0.7 %; Eosinophils # 0.4 K/mcL (0.0-0.6); Eosinophils % 4.2 %; Hematocrit 31.2 % (37.5-50.1); Hemoglobin 9.4 g/dL (12.9-16.9); Immature Granulocytes % 0.6 % (0-4); Lymphocytes % 11.5 %; Mean Corpuscular HGB Conc 30.1 g/dL (31.6-35.5); Mean Corpuscular Hemoglobin 28.7 pg (28.0-33.3); Mean Corpuscular Volume 95.1 fL (83.0-100.0); Mean Platelet Volume 9.4 fL (9.4-12.4); Monocytes # 0.6 K/mcL (0.0-1.3); Monocytes % 6.6 %; Neutrophils # 6.6 K/mcL (1.6-8.9); Platelet Count 364 K/mcL (140-400); Red Blood Count 3.28 M/mcL (4.19-5.50); Red Cell Distribution Width 14.9 % (11.5-14.5); Segmented Neutrophils % 76.4 %
[2017-10-23 05:24] LABS: BUN/Creatinine Ratio 8 (6-26); Blood Urea Nitrogen 9 mg/dL (8-23); Calcium 8.4 mg/dL (8.6-10.3); Carbon Dioxide 28 mEq/L (23-29); Chloride 112 mEq/L (98-107); Glucose 115 mg/dL (70-105); Osmolality,Calculated 300 (280-300); Potassium 3.5 mEq/L (3.5-5.1); Sodium 145 mEq/L (136-145); eGFR For African Americans > 60 (> 60); eGFR For Non-African Americans > 60 (> 60)
[2017-10-23] MEDS: *HR* Heparin 5,000 UNIT/ML VIAL SQ SCH ×2 (07:11→17:33)
[2017-10-23] MEDS: Pantoprazole 40 MG VIAL IVP SCH (08:20)
[2017-10-23] MEDS: Gabapentin 400 MG CAPSULE PO SCH ×3 (08:23→20:30)
[2017-10-23] MEDS ORDERED: Potassium Chloride 40 MEQ, Lidocaine 1% 2 ML in D5% in Water 500 ML IVPB ONE (09:07)
--- NOTE | 2017-10-23 09:47 | Event Note ---
Date of Encounter: 10/23/17 Time of Encounter: 09:46 Per hospitalist team family gave that for G-tube over the weekend, at least verbally. I do not know if any papers were signed. It has continued to let me know that he is okay with the PEG tube although he did not tolerate an NG tube. Palliative has very little to offer at this point we will continue to follow out to assist with [facility] but will be following at adistance.
--- NOTE | 2017-10-23 12:41 | Anesthesia Evaluation PreOp ---
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 History: CVA (w/dysphagia - resultant RLL aspiration pneumonia), Other ( Dementia, Schizophrenia - maintained on Depakote) Other Medical History: Renal (Acute on Chronic KI), GERD (maintained on Prilosec ) Alcohol Use: none Drug use: none Medications and Allergies Acetaminophen [Tylenol Arthritis] 650 mg PO Q8H PRN 10/10/17 [History] Atorvastatin [Lipitor] 40 mg PO HS 10/10/17 [History] Bisacodyl [Dulcolax] 10 mg RC Q48H PRN 10/10/17 [History] Calamine/Zinc Oxide [Calamine Lotion] 1 appl TP BID PRN 10/10/17 [History] Clomipramine HCl 50 mg PO QAM 10/10/17 [History] Cyprohepatdine [Periactin] 4 mg PO HS 10/10/17 [History] Divalproex (24 HR) [Depakote ER (24 HR)] 1,500 mg PO HS 10/10/17 [History] Furosemide [Lasix] 10 mg PO Q48H 10/10/17 [History] Gabapentin [Neurontin] 800 mg PO TID 10/10/17 [History] Ipratropium/Albuterol Neb [Duoneb] 3 ml IH Q4HR PRN 10/10/17 [History] Lisinopril [Zestril] 10 mg PO DAILY 10/10/17 [History] MOM Conc [MILK OF MAGNESIA conc] 30 ml PO HS PRN 10/10/17 [History] Melatonin [Melatin] 9 mg PO HS 10/10/17 [History] Montelukast [Singulair] 10 mg PO DAILY 10/10/17 [History] Omeprazole [PriLOSEC] 20 mg PO DAILY 10/10/17 [History] Paliperidone Palmitate [Invega Sustenna] 234 mg IM QMONTH 10/10/17 [History] Saline Nasal [place] [[place] Nasal [place]] 1 spray NS BID PRN 10/10/17 [History] Selenium Sulfide [Selrx] 1 appl TP TUFR 10/10/17 [History] Sennosides/Docusate Sodium [Senna Plus] 2 each PO BID 10/10/17 [History] Sodium Chloride 2 gm PO BID 10/10/17 [History] Tramadol HCl [Ultram] 50 mg PO BID PRN 10/10/17 [History] Tramadol HCl [Ultram] 100 mg PO TID 10/10/17 [History] Urea [Keralac] 1 appl TP HS 10/10/17 [History] Zolpidem [Ambien] 5 mg PO HS 10/10/17 [History] risperiDONE [Risperidone] 1 mg PO HS 10/10/17 [History] Amoxicillin/Clavulanate [Augmentin] 875 mg PO BIDWM 5 Days tablet 10/14/17 [Rx] 3 Allergy/AdvReac Type Severity Reaction Status Date / Time methocarbamol [From Robaxin] Allergy Rash Verified 05/14/15 20:18 - Meds/Allergy Pre-op Review Medications Reviewed: Yes Allergies Reviewed: Yes Beta Blockers on Current Med List: No Anesthesia Results - Labs 10/23/17 04:13 10/23/17 04:13 Laboratory Results Impressions Echocardiogram 10/17/17 07:00 Impressions: LVEF 65%. Indeterminate diastolic function. Normal right ventricular structure and function. No significant valvular dysfunction - not all valves were well evaluated. No pulmonary hypertension. Left Ventricular Wall Motion: Rest Echo Findings All wall segments showed normal motion. Findings: Study Quality * Technically somewhat challenging - not all windows are well visualized. ECG Findings * Sinus tachycardia. Left Ventricle * LVEF 65%. * Normal LV chamber size, wall thickness and function. * Indeterminate diastolic function. Fused E/A. Right Ventricle * Normal right ventricular structure and function. Left Atrium * Left atrium is not well visualized. Right Atrium * Right atrium is not well visualized. Aortic Valve * No aortic regurgitation. * Aortic valve not well visualized. * Suboptimal Doppler signal. Mitral Valve * Normal mitral valve structure. * No mitral regurgitation. * No mitral stenosis. Tricuspid Valve * Tricuspid valve not well visualized. * No tricuspid regurgitation. * Estimated RA pressure is 3 mmHg. * Estimated RVSP is 29 mmHg. * No pulmonary hypertension. Pulmonic Valve * Pulmonic valve is not well visualized. * No pulmonic stenosis. * No pulmonic regurgitation. Pulmonary Artery * Pulmonary artery not well visualized. Aorta * Normally sized aortic root. Pericardium * There is no pericardial effusion present. Interatrial Septum * No evidence of PFO by color Doppler. IVC * Normal IVC dimensions and inspiratory collapse. Chest X-Ray 10/21/17 09:26 IMPRESSION: Stable chest, demonstrating multifocal right-sided airspace disease and small right pleural effusion. D/ / 10/21/2017 10:20:34 Sina Waters MD / Kat Gannon Interpreting Provider: Sina Waters MD Anesthesia Exam Vital Signs Temp Pulse Resp BP Pulse Ox 10/23/17 10:21 18 94 10/23/17 08:39 99.6 F 99 17 144/84 97 10/23/17 08:30 97 10/23/17 04:56 98.2 F 105 18 131/79 92 10/23/17 03:08 30 94 10/23/17 00:21 99.0 F 102 20 125/80 100 10/22/17 21:22 19 93 10/22/17 20:34 98.1 F 106 16 161/90 90 10/22/17 16:54 98.1 F 109 18 159/90 93 10/22/17 15:56 16 95 10/22/17 13:41 129/90 Intake and Output 10/22/17 10/23/17 10/23/17 23:59 07:59 15:59 Intake Total 200 / 200 1200 / 1200 0 / 0 Output Total 1000 / 1000 550 / 550 775 / 775 Balance -800 / -800 650 / 650 -775 / -775 Intake: IV Fluids 200 / 200 1200 / 1200 KCl 20mEq IN D5%-0.45 NACL 20 1000 / 1000 meq In 1,000 ml @ 100 mls/hr IVC .Q10H RAMA Rx#:[id number] Zosyn Premix 3.375 GM/200 ML 3. 200 / 200 200 / 200 375 gm In 200 ml @ 50 mls/hr IVPB Q8HR RAMA Rx#:[id number] Oral 0 / 0 Output: Urine 775 / 775 Catheter 1000 / 1000 550 / 550 Other: Meal NPO Percent of Meal Consumed 0% Stool Size Large Stool Consistency soft Stool Color Brown # Bowel Movement Diapers 1 Blood Glucose* 103 Height: 5'8" Weight: 194# - HEENT Pupil (Motor): Pupils equal, EOMI Mallampati: III Teeth: Missing, Poor dentition Oral Opening: Greater than 3 - PAPER CARRIER LOC: Oriented PAPER CARRIER Motor: Normal RLE, Deficit RUE, Deficit LUE, Deficit LLE, Deficit Face PAPER CARRIER Sensory: Normal: RUE, Deficit: LUE, RLE, LLE, Face - Cardiac Rhythm: Regular Murmur: None - Pulmonary Breath Sounds: left Clear, right Rales, right Rhonchi Respiratory Effort: Symmetrical Anesthesia Assess/Plan ASA Score: 3 (Schizophrenia, s/p CVA, Dementia, pneumonia) Modified Tian Scale for Level of Consciousness: Cooperative, oriented, and tranquil Anesthetic Plan: General Monitoring Plan: Standard Monitors Recovery Plan: PACU Anes Supervising Prov Stmt: Pt seen/evaluated, R&B Discussed w/ VELASQUEZSerg Sia Quachnewark [phone], [phone], questions answered and consent obtained. Duke Vale MD
[2017-10-23] MEDS ORDERED: *HR* Propofol 200 MG/20 ML VIAL IVP ONE (12:52)
[2017-10-23] MEDS ORDERED: *HR* Metoprolol 5 MG/5 ML VIAL IVP ONE (13:28)
--- NOTE | 2017-10-23 13:48 | Internal Med Progress Note ---
Date of Encounter: 10/23/17 Time of Encounter: 11:45 - Assessment and plan (1) Aspiration pneumonia Current Visit: No Status: Acute Assessment and plan: Continue Zosyn. White count normalized. He has been afebrile. He is tachycardic however. I suspect his tachycardia is possibly from dehydration. Continue to monitor. Patient has been previously on Vanco and Flagyl as well which has been stopped. Cultures remained negative. Continue to wean off oxygen as tolerated. Continue nebs Qualifiers: Aspiration pneumonia type: due to regurgitated food Laterality: right Lung location: unspecified part of lung Qualified Code(s): J69.0 - Pneumonitis due to inhalation of food and vomit (2) Acute respiratory failure with hypoxia Current Visit: No Status: Acute Assessment and plan: Likely secondary to aspiration pneumonia. Repeat chest x-ray showed similar findings to previously. Treat pneumonia as above. (3) Dysphagia Current Visit: No Status: Acute Assessment and plan: PEGto be placed today. 2. To start after that.. An attempt at NG tube has failed over the weekend. Continue with aspiration precautions. Qualifiers: Dysphagia type: oropharyngeal phase Qualified Code(s): R13.12 - Dysphagia, oropharyngeal phase (4) Hypernatremia Current Visit: Yes Status: Acute Assessment and plan: Sodium 145 today. No changes to fluid today. Repeat labs in the morning. (5) ANTHONY (acute kidney injury) Current Visit: Yes Status: Acute Assessment and plan: Improving. We will check labs this morning. Avoid nephrotoxins. (6) History of CVA (cerebrovascular accident) Current Visit: No Status: Acute Assessment and plan: Resume statin when PEG tubes placed. No antiplatelet therapy secondary to previously have been hemorrhagic stroke. He does have left sided paralysis. (7) Decubitus ulcer of coccyx, stage 2 Current Visit: Yes Status: Acute Assessment and plan: wound following. wound care per nursing. (8) DVT prophylaxis Current Visit: No Status: Acute Assessment and plan: Heparin subcutaneous (9) Goals of care, counseling/discussion Current Visit: No Status: Acute Assessment and plan: Palliative is following. PEG is planned for today. The patient may be able to discharge tomorrow.. - Subjective Interval history: Patient seen and examined. No acute events overnight. From what I understand there is plan for PEG later is afternoon. The patient is difficult to understand given his speech difficulties from previous strokes. The patient was admitted under the manager operations and procurement service for with acute hypoxic respiratory failure. He also has a component of dysphagia causing an aspiration pneumonia. An attempt at an NG tube was done over the weekend however no NG tube was able to be placed as the patient resisted. Been afebrile - Constitutional Vitals: Temp Pulse Resp BP Pulse Ox 98.2 F 109 20 157/101 87 10/23/17 12:40 10/23/17 12:40 10/23/17 12:40 10/23/17 12:40 10/23/17 12:40 General appearance: Present: A&O X 2, no acute distress, answers questions appropriately Exam: GEN: NAD CVS: RRR. S1, S2, No m/r/g RESP: Diminished. Bilateral rales and rhonchi. ABD: Soft, NT, ND, +BS EXT: No edema. 2+ DP, No rashes NEURO: Nonfocal but has chronic left-sided paralysis upper and lower Internal Medicine: Result - Labs CBC & Chem 7: 10/23/17 04:13 10/23/17 04:13 Labs: Short CBC 10/23/17 Range/Units 04:13 WBC 8.6 (4.3-11.1) K/mcL Hgb 9.4 L (12.9-16.9) g/dL Hct 31.2 L (37.5-50.1) % Plt Count 364 (140-400) K/mcL Neutrophils # 6.6 (1.6-8.9) K/mcL BMP 10/23/17 04:13 Sodium 145 Potassium 3.5 Chloride 112 H Carbon Dioxide 28 BUN 9 Creatinine 1.07 Glucose 115 H Calcium 8.4 L - ABG Interpretation ABG results: ABG ABG pH 7.44 pH Units (7.32-7.45) 10/17/17 14:20 ABG pCO2 67 mmHg (35-45) H 10/17/17 14:20 ABG pO2 65 mmHg (85-104) L 10/17/17 14:20 ABG O2 Saturation 92 % (95-98) L 10/17/17 14:20 PT/INR, D-dimer PT 18.4 Seconds (9.4-12.1) H 10/18/17 11:08 Consult Discharge Plan - Plan [facility]: [facility]Primary Care Provider[facility] -
[2017-10-23] MEDS: risperiDONE 1 MG TABLET PO SCH (20:30)
[2017-10-23] MEDS: Divalproex (24 HR) 500 MG TABLET PO SCH (22:32)
[2017-10-23] MEDS ORDERED: D5% in 0.45% NACL w KCl 20 MEQ/1,000 ML MLS IVC SCH (23:00)
[2017-10-24] MEDS: Piperacillin/Tazobactam 3.375 GM/200 ML BAG IVPB SCH ×2 (01:15→09:06)
[2017-10-24 03:57] LABS: Basophils # 0.1 K/mcL (0.0-0.2); Eosinophils # 0.4 K/mcL (0.0-0.6); Eosinophils % 4.7 %; Hematocrit 29.8 % (37.5-50.1); Immature Granulocytes % 0.6 % (0-4); Lymphocytes # 1.2 K/mcL (0.6-4.6); Lymphocytes % 14.4 %; Mean Corpuscular HGB Conc 30.2 g/dL (31.6-35.5); Mean Corpuscular Hemoglobin 28.8 pg (28.0-33.3); Mean Corpuscular Volume 95.5 fL (83.0-100.0); Mean Platelet Volume 8.9 fL (9.4-12.4); Monocytes # 0.7 K/mcL (0.0-1.3); Monocytes % 8.3 %; Neutrophils # 5.8 K/mcL (1.6-8.9); Platelet Count 353 K/mcL (140-400); Red Blood Count 3.12 M/mcL (4.19-5.50); Red Cell Distribution Width 14.9 % (11.5-14.5)
[2017-10-24 04:14] LABS: BUN/Creatinine Ratio 9 (6-26); Blood Urea Nitrogen 10 mg/dL (8-23); Calcium 8.3 mg/dL (8.6-10.3); Carbon Dioxide 30 mEq/L (23-29); Chloride 112 mEq/L (98-107); Glucose 109 mg/dL (70-105); Osmolality,Calculated 302 (280-300); Potassium 3.5 mEq/L (3.5-5.1); Sodium 146 mEq/L (136-145); eGFR For African Americans > 60 (> 60); eGFR For Non-African Americans > 60 (> 60)
[2017-10-24] MEDS: Ipratropium/Albuterol Neb 3 ML IH SCH ×2 (04:41→10:47)
[2017-10-24] MEDS: *HR* Heparin 5,000 UNIT/ML VIAL SQ SCH (05:51)
[2017-10-24 08:27] LABS: Alanine Aminotransferase 9 Units/L (7-52); Albumin 2.4 g/dL (3.5-5.7); Albumin/Globulin Ratio 0.8 (1.1-2.2); Alkaline Phosphatase 44 Units/L (34-104); Aspartate Amino Transferase 11 Units/L (13-39); Bilirubin,Total 0.4 mg/dL (0.3-1.0); Total Protein 5.4 g/dL (6.4-8.9)
[2017-10-24] MEDS: Gabapentin 400 MG CAPSULE PO SCH (09:07)
--- NOTE | 2017-10-24 10:24 | Discharge Summary ---
Date of Encounter: 10/24/17 Time of Encounter: 10:22 - Discharge Diagnosis (1) Aspiration pneumonia Priority: Primary Status: Acute Qualifiers: Aspiration pneumonia type: due to regurgitated food Laterality: right Lung location: unspecified part of lung Qualified Code(s): J69.0 - Pneumonitis due to inhalation of food and vomit (2) Acute respiratory failure with hypoxia Priority: Primary Status: Acute (3) Dysphagia Priority: Primary Status: Acute Qualifiers: Dysphagia type: oropharyngeal phase Qualified Code(s): R13.12 - Dysphagia, oropharyngeal phase (4) Hypernatremia Priority: Primary Status: Acute (5) ANTHONY (acute kidney injury) Priority: Primary Status: Acute (6) History of CVA (cerebrovascular accident) Priority: Secondary Status: Acute (7) Decubitus ulcer of coccyx, stage 2 Priority: Secondary Status: Acute - Discharge Medications Prescriptions: Amoxicillin/Clavulanate [Augmentin] 875 mg PO BIDWM #12 tablet Zolpidem [Ambien] 5 mg PO HS #5 tablet Home Medications: Acetaminophen [Tylenol Arthritis] 650 mg PO Q8H PRN 10/10/17 [History] Atorvastatin [Lipitor] 40 mg PO HS 10/10/17 [History] Bisacodyl [Dulcolax] 10 mg RC Q48H PRN 10/10/17 [History] Calamine/Zinc Oxide [Calamine Lotion] 1 appl TP BID PRN 10/10/17 [History] Clomipramine HCl 50 mg PO QAM 10/10/17 [History] Cyprohepatdine [Periactin] 4 mg PO HS 10/10/17 [History] Divalproex (24 HR) [Depakote ER (24 HR)] 1,500 mg PO HS 10/10/17 [History] Furosemide [Lasix] 10 mg PO Q48H 10/10/17 [History] Gabapentin [Neurontin] 800 mg PO TID 10/10/17 [History] Ipratropium/Albuterol Neb [Duoneb] 3 ml IH Q4HR PRN 10/10/17 [History] Lisinopril [Zestril] 10 mg PO DAILY 10/10/17 [History] MOM Conc [MILK OF MAGNESIA conc] 30 ml PO HS PRN 10/10/17 [History] Melatonin [Melatin] 9 mg PO HS 10/10/17 [History] Montelukast [Singulair] 10 mg PO DAILY 10/10/17 [History] Omeprazole [PriLOSEC] 20 mg PO DAILY 10/10/17 [History] Paliperidone Palmitate [Invega Sustenna] 234 mg IM QMONTH 10/10/17 [History] Saline Nasal [place] [[place] Nasal [place]] 1 spray NS BID PRN 10/10/17 [History] Selenium Sulfide [Selrx] 1 appl TP TUFR 10/10/17 [History] Sennosides/Docusate Sodium [Senna Plus] 2 each PO BID 10/10/17 [History] Sodium Chloride 2 gm PO BID 10/10/17 [History] Tramadol HCl [Ultram] 50 mg PO BID PRN 10/10/17 [History] Tramadol HCl [Ultram] 100 mg PO TID 10/10/17 [History] Urea [Keralac] 1 appl TP HS 10/10/17 [History] Zolpidem [Ambien] 5 mg PO HS 10/10/17 [History] risperiDONE [Risperidone] 1 mg PO HS 10/10/17 [History] Amoxicillin/Clavulanate [Augmentin] 875 mg PO BIDWM #12 tablet 10/24/17 [Rx] Ipratropium/Albuterol Neb [Duoneb] 3 ml IH [id number] inhsol 10/24/17 [Rx] Zolpidem [Ambien] 5 mg PO HS #5 tablet 10/24/17 [Rx] Allergies/Adverse Reactions: 3 Allergy/AdvReac Type Severity Reaction Status Date / Time methocarbamol [From Robaxin] Allergy Rash Verified 05/14/15 20:18 Procedures/tests Complete & Pending: Procedures Performed prior 72 hours Category Date Time Status EKG [ECG 12 lead ECG] [ECG] Stat Y 10/21/17 16:07 Ordered Date of admission: 10/16/17 20:31 [facility] physician[facility] Consults: 10/16/17 21:19 Consult to Speech Therapy [CONS] Routine Comment: Evaluate, develop and implement POC Reason for Consult: Swallow evaluation Call Completed: No 10/17/17 06:12 Consult to Pulmonology [CONS] Routine Consulting Provider: Pulm [facility] [place] Reason for Consult: Increased SOB. Call Completed: Yes 10/18/17 09:28 Consult to Palliative Care [CONS] Routine Comment: Consulting Provider: Palliative Care Marlen Reason for Consult: Possible PEG tube; dysphagia s/p CVA Call Completed: No 10/18/17 11:54 Consult to Director Of People [CONS] Routine Reason for SW Consult: Pt has emergency contacts Sia vilchis [phone] and Katia Abraham [phone], both are cousins but states they are not POA. Pt is unable to consent for himself at this time. Need copy of his living will from [place], secondary social studies teacher Vidal Elizondo, out of town today will be back tomorrow. 10/18/17 13:17 Consult to Gastroenterology [CONS] Routine Consulting Provider: Gastroenterology Marlen Reason for Consult: PEG tube placement due to dysphagia with aspiration risk Call Completed: No 10/21/17 11:42 consult to roll over press operator [Consult to Nutrition] [CONS] Routine Comment: Consulting Provider: NUTRITION Reason for Dietary Consult: Tube Feed Start & Manage 10/21/17 12:28 Consult to Physical Therapy [CONS] Routine Comment: Evaluate, develop and implement POC Reason for Consult: old CVA, continue to decline in weakness OT [Consult to Occupational Therapy] [CONS] Routine Comment: Evaluate, develop and implement POC Reason for Consult: old CVA- continues to decline - Patient Status Disposition: Transfer SNF Condition: Fair Functional capacity at discharge: bed bound (Osmolite 1.2 at 65cc/hr) Overall status at discharge: patient is progressing back to baseline - Discharge Instructions Follow Up With: [place],PCP [Primary Care Provider] - - Diet and Activity Activity: increase activity as tolerated Diet: other (tube feeding) Hospital course: Mr. Carlin is a 62 year old male with Hx of dementia, COPD, Hx of CVA with left residual hemiplegia, dysphagia, transferred from [place] hospital for SOB, cough, and fever. Pt was recently hospitalized for pneumonia. He was found to have increased SOB, cough, desaturation, and increased oxygen requirement. He was found to have fever with T 100.3 and 103. CXR showed B/L basal infiltrate and the patient was admitted for aspiration pneumonia. He was actually admitted to the ICU. Never needed intubation. Was put on IV antibiotics. Those were de- escalated. We had issues with the patient feeding and dysphagia. We did consult with GI. Eventually a PEG tube was placed into feedings were started. His dysphagia is likely stemming from his previous CVA and multiple other small strokes. Once tube feeding was started we are able to switch him to oral medications. He was discharged on Augmentin to finish a course of treatment for his aspiration pneumonia. His electrolytes have normalized. His kidney injury did normalize as well. We discharged the patient to nursing facility. Palliative was following the patient as well while hospitalized. - Time Spent with Patient Total time spent providing and/or coordinating discharge services: Greater than 30 minutes - Constitutional Vitals: Temp Pulse Resp BP Pulse Ox 98.3 F 93 17 122/77 96 10/24/17 07:03 10/24/17 07:03 10/24/17 07:03 10/24/17 07:03 10/24/17 07:03 General appearance: Present: A&O X 2, no acute distress, answers questions appropriately Exam: GEN: NAD CVS: RRR. S1, S2, No m/r/g RESP: Diminished. Bilateral rales and rhonchi. ABD: Soft, NT, ND, +BS. PEG noted EXT: No edema. 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
--- NOTE | 2017-10-24 10:26 | Physician Discharge Referral ---
ExtendedCare Referral Info Institutional Level of Care: Skilled - Diagnosis (1) Aspiration pneumonia Priority: Primary Status: Acute (2) Acute respiratory failure with hypoxia Priority: Primary Status: Acute (3) Dysphagia Priority: Primary Status: Acute (4) Hypernatremia Priority: Primary Status: Acute (5) ANTHONY (acute kidney injury) Priority: Primary Status: Acute (6) History of CVA (cerebrovascular accident) Priority: Secondary Status: Acute (7) Decubitus ulcer of coccyx, stage 2 Priority: Secondary Status: Acute - Transfer Medications Prescriptions: Amoxicillin/Clavulanate [Augmentin] 875 mg PO BIDWM #12 tablet Zolpidem [Ambien] 5 mg PO HS #5 tablet Home Medications: Acetaminophen [Tylenol Arthritis] 650 mg PO Q8H PRN 10/10/17 [History] Atorvastatin [Lipitor] 40 mg PO HS 10/10/17 [History] Bisacodyl [Dulcolax] 10 mg RC Q48H PRN 10/10/17 [History] Calamine/Zinc Oxide [Calamine Lotion] 1 appl TP BID PRN 10/10/17 [History] Clomipramine HCl 50 mg PO QAM 10/10/17 [History] Cyprohepatdine [Periactin] 4 mg PO HS 10/10/17 [History] Divalproex (24 HR) [Depakote ER (24 HR)] 1,500 mg PO HS 10/10/17 [History] Furosemide [Lasix] 10 mg PO Q48H 10/10/17 [History] Gabapentin [Neurontin] 800 mg PO TID 10/10/17 [History] Ipratropium/Albuterol Neb [Duoneb] 3 ml IH Q4HR PRN 10/10/17 [History] Lisinopril [Zestril] 10 mg PO DAILY 10/10/17 [History] MOM Conc [MILK OF MAGNESIA conc] 30 ml PO HS PRN 10/10/17 [History] Melatonin [Melatin] 9 mg PO HS 10/10/17 [History] Montelukast [Singulair] 10 mg PO DAILY 10/10/17 [History] Omeprazole [PriLOSEC] 20 mg PO DAILY 10/10/17 [History] Paliperidone Palmitate [Invega Sustenna] 234 mg IM QMONTH 10/10/17 [History] Saline Nasal [place] [[place] Nasal [place]] 1 spray NS BID PRN 10/10/17 [History] Selenium Sulfide [Selrx] 1 appl TP TUFR 10/10/17 [History] Sennosides/Docusate Sodium [Senna Plus] 2 each PO BID 10/10/17 [History] Sodium Chloride 2 gm PO BID 10/10/17 [History] Tramadol HCl [Ultram] 50 mg PO BID PRN 10/10/17 [History] Tramadol HCl [Ultram] 100 mg PO TID 10/10/17 [History] Urea [Keralac] 1 appl TP HS 10/10/17 [History] Zolpidem [Ambien] 5 mg PO HS 10/10/17 [History] risperiDONE [Risperidone] 1 mg PO HS 10/10/17 [History] Amoxicillin/Clavulanate [Augmentin] 875 mg PO BIDWM #12 tablet 10/24/17 [Rx] Ipratropium/Albuterol Neb [Duoneb] 3 ml IH [id number] inhsol 10/24/17 [Rx] Zolpidem [Ambien] 5 mg PO HS #5 tablet 10/24/17 [Rx] Allergies/Adverse Reactions: 3 Allergy/AdvReac Type Severity Reaction Status Date / Time methocarbamol [From Robaxin] Allergy Rash Verified 05/14/15 20:18 - Respiratory Orders Smoking Cessation: Smoking cessation has been advised. For more information, call the [place] Tobacco Quit Line at 8-109-YDCV-NOW. - Diet Orders Tube Feedings (type/amount/rate): Osmolite 1.2. Increase to goal of 65 next 24 hours CERTIFICATION: I certify that the transfer of the above named patient to an Extended Care Facility is necessary for the continuing treatment of the diagnosis listed. The above information is true and accurate reflection of patient's current condition. Confidential - Redisclosure prohibited without a patient's written consent.
[2017-10-24 11:31] VITALS: BP 123/76
== END 2017-10-24 14:03 | DRG 177 ==
LOC: 2NNU 20:31 → SUATTDRO 20:31 → ICNU 10-17 08:40 → 2ANU 10-20 16:38
PROVIDERS: ADMIT Internal Medicine; ATTEND Internal Medicine